=== PATIENT | female | born 1960 | race Caucasian/White ===

== ENCOUNTER 2022-01-27 10:41 | Emergency (ER) | payer OTHER ==
[~2022-01-27] VITALS: Ht 177.8 cm; Wt 90.7 kg
[2022-01-27] MEDS ORDERED: diphenhydrAMINE 50 MG/ML INJ (BENADRYL) IM ONE (11:45)
[2022-01-27] MEDS ORDERED: CLINDAMYCIN 600 MG/50 ML IVPB 50 ML IV ONE (11:45)
--- NOTE | 2022-01-27 11:45 | ED Upper Extremity ---
General Chief Complaint: Upper Extremity Stated Complaint: L ARM REDNESS/SWELLING Nursing Triage Note: PT AMBULATE TO ROOM 04 WITH C/O LEFT ARM SWELLING STARTING YESTERDAY. PT STATES SHE THINKS SHE MAY HAVE CELLULITIS. PT REPORTS TAKING TYLENOL FOR PAIN LAST NIGHT. Source: patient, family Exam Limitations: no limitations (VERNON RICE) History of Present Illness Date Seen by Provider: Jan 27, 2022 Time Seen by Provider: 11:40 Initial Comments This is a 61-year-old female with history of breast cancer and previous lumpectomy with subsequent left upper extremity lymphedema that presents to the emergency room for evaluation of redness to her arm. She states that she may have gotten bitten by something because she started having a small area of redness that was itchy. However, since yesterday the redness is expanded on her arm and is now slightly painful. She did take some Tylenol without relief. Method of Injury: unknown (VERNON RICE) Allergies and Home Medications Allergies Coded Allergies: No Known Drug Allergies (Unverified , 01/27/22) Patient Home Medication List Home Medication List Reviewed: Yes (VERNON RICE) Clindamycin HCl (Clindamycin HCl) 150 Mg Capsule, 300 MG PO QID Prescribed by: Sebastian Rice on 01/27/22 1155 Review of Systems Constitutional: no symptoms reported EENTM: no symptoms reported Respiratory: no symptoms reported Cardiovascular: no symptoms reported Gastrointestinal: no symptoms reported Genitourinary: no symptoms reported Musculoskeletal: other (left arm redness/swelling) Skin: change in color (redness to left arm) (VERNON RICE) Past Majyhsw-Qpgajh-Jpksun Hx Patient Social History Tobacco Use?: No Smoking Status: Never a Smoker Smokeless Tobacco Frequency: Never a User Use of E-Cig and/or Vaping dev: No Use of E-Cig and/or Vaping Tariq: Never a User Substance use?: No Alcohol Use?: Yes Alcohol Frequency: Once in a while Pt feels they are or have been: No (VERNON RICE) Immunizations Up To Date COVID19 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 oz. kg; 28.00 BMI Method: General Appearance: WD/WN, no apparent distress HEENT: PERRL/EOMI Neck: non-tender, full range of motion Cardiovascular: regular rate, rhythm Respiratory: chest non-tender Gastrointestinal: normal bowel sounds Neurologic/Psychiatric: border police II-XII nml as tested, oriented x 3 Skin: warm/dry, rash (bright blanching erythema to left upper arm and forearm ) (VERNON RICE) Progress/Results/Core Measures Results/Orders Medications Given in ED Current Medications Medications Dose Ordered Sig/Marcella Route Start Time Stop Time Status Last Admin Dose Admin Clindamycin Phosphate/Dextrose 50 ml @ 100 mls/hr ONCE ONCE IV 01/27/22 11:45 01/27/22 12:06 DC 01/27/22 11:43 100 MLS/HR Diphenhydramine HCl 25 mg ONCE ONCE IM 01/27/22 11:45 01/27/22 11:46 DC 01/27/22 11:43 25 MG (JUANY MCCLENDON MD) Vital Signs/I&O 01/27/22 01/27/22 10:47 12:06 Temp 36.8 36.5 Pulse 78 81 Resp 16 16 B/P (MAP) 103/61 (75) 137/83 Pulse Ox 98 O2 Delivery Room Air Room Air (JUANY MCCLENDON MD) Blood Pressure Mean: 75 Departure Communication (Admissions) Patient has bright cellulitis to the left upper arm. No significant concern for DVT. Patient was given a dose of clindamycin and benadryl here and they will follow up closely with her PCP. (VERNON RICE) Impression Primary Impression: Cellulitis of arm, left Disposition: 01 HOME, SELF-CARE Condition: Stable Departure-Patient Inst. Decision time for Depature: 11:52 (VERNON RICE) Referrals: LORENZO GOMEZ MD (PCP/Family) Primary Care Physician Patient Instructions: Cellulitis (Skin Infection), Adult (DC) Add. Discharge Instructions: Please follow-up closely with your primary care doctor to ensure improvement of your symptoms as we discussed. Return to the emergency room if you have any severe changes or worsening of your symptoms including fever, worsening pain, worsening swelling, shortness of breath. All discharge instructions reviewed with patient and/or family. Voiced understanding. Scripts Clindamycin HCl (Clindamycin HCl) 150 Mg Capsule 300 MG PO QID for 10 Days, #80 CAP Prov: VERNON RICE 01/27/22 ATTENDING PHYSICIAN NOTE: I was physically present as attending physician in the emergency department during the care of this patient, but I was not directly involved in the decision making or delivery of care for this patient. (JUANY MCCLENDON MD) VERNON RICE Jan 27, 2022 11:45 JUANY MCCLENDON MD Jan 27, 2022 20:13
[2022-01-27] MEDS ORDERED: CLIN150C20 PO (11:55)
[2022-01-27 12:06] VITALS: BP 137/83
== END 2022-01-27 12:06 | disposition home or self-care (01) ==
LOC: ER 10:44
DX: L03.114 Cellulitis of left upper limb (principal)
CPT/HCPCS: 99284

== ENCOUNTER → 2022-03-26 | Outpatient (CLI) | payer OTHER ==
[~2022-03-26] MED LIST: CLIN150C20 PO
--- NOTE | 2022-03-26 17:39 | Diagnostic Imaging Report ---
EXAMINATION: Lumbosacral spine 2 or 3 views HISTORY: Right hip and low back pain. COMPARISON: None available. FINDINGS: There is loss of height along the superior endplate at L1 which is age indeterminate. Given back pain and acute fractures not excluded, an MRI could evaluate for edema as clinically warranted. Remaining vertebral body heights maintained. There are no subluxations. Intervertebral disc spaces appear preserved. Soft tissues demonstrate atherosclerotic disease with postoperative changes incompletely imaged in the left hip. IMPRESSION: 1. Age indeterminate compression fracture at L1. See above discussion. Dictated by: Dictated on workstation # [id number]
--- NOTE | 2022-03-26 19:49 | Diagnostic Imaging Report ---
INDICATION: Right hip pain and low back pain. TIME OF EXAM: 1:46 p.m. FINDINGS: An AP view of the pelvis and two views of the right hip were obtained. Femoroacetabular alignment is normal bilaterally. There are postop changes of left total hip arthroplasty. Prosthetic elements are in good position. Right hip does show some superior joint space narrowing compatible with degenerative change. Femoroacetabular alignment is maintained, and there is no evidence of fracture or dislocation. The rami are intact. IMPRESSION: Postop changes of the left hip. There are degenerative changes to the right hip. No acute bony abnormality is detected. Dictated by: Dictated on workstation # [id number]
== END ==
LOC: RAD 13:19
PROVIDERS: ATTEND Family Medicine
DX: M16.11 Unilateral primary osteoarthritis, right hip (principal)
CPT/HCPCS: 72100

== ENCOUNTER → 2022-05-13 | Outpatient (CLI) | payer OTHER | LOC: CARD 10:00 | PROVIDERS: ATTEND Internal Medicine Cardiovascular Disease | DX: I08.0 Rheumatic disorders of both mitral and aortic valves (principal); I50.22 Chronic systolic (congestive) heart failure | CPT/HCPCS: 93306 ==

== ENCOUNTER 2022-11-30 18:26 | Emergency (ER) | payer BC, OTHER ==
[~2022-11-30] VITALS: Ht 177 cm; Wt 72.0 kg
[2022-11-30] MEDS ORDERED: ONDANSETRON 4 MG (ZOFRAN) ORAL DISSOLVE TAB PO STA (19:12)
[2022-11-30] MEDS ORDERED: HYDROmorphone 2 MG/ML VIAL (DILAUDID) IV ONE (19:15)
[2022-11-30] MEDS ORDERED: HYDROmorphone 2 MG/ML VIAL (DILAUDID) IM ONE (19:45)
[2022-11-30] MEDS ORDERED: fentaNYL PATCH 50 MCG (DURAGESIC) ONE (20:25)
[2022-11-30] MEDS ORDERED: FENT1PAT9 TD (20:25)
--- NOTE | 2022-11-30 20:26 | ED Back Pain ---
General Chief Complaint: Back Problems Stated Complaint: LOW BACK PAIN Nursing Triage Note: PT TO ED W/ C/O CHRONIC BACK PAIN ONSET AFTER HIP ET FEMUR FX 6 MOS AGO. PT REPORTS WAS RECENTLY SEEN AT ET DX W/ L1 ET L2 COMPRESSION FX W/ POSS METS/MYELOMA. PT REPORTS THE "PAIN IS TOO MUCH TO HANDLE ANYMORE." NO OTHER C/O VOICED. Source of Information: Patient, Family () Exam Limitations: No Limitations History of Present Illness Date Seen by Provider: Nov 30, 2022 Time Seen by Provider: 20:14 Initial Comments 62-year-old female presents for continued back pain. Symptoms present for 6 months and worsening. She has a CT scan/MRI report from [facility] showing that she has severe lytic disease throughout her spine, ribs which they relates possible once myeloma or metastasis. She does have a severe L1 compression fracture with retropulsion. She complains of continued back pain. She does use morphine at home which makes her very ill per her report. She also has fentanyl patches which "make me jittery." She has been taking 2 tablets at a time of 10/325 Percocet with minimal relief. She denies any loss of bowel or bladder control. No lower extremity weakness. She does have some sharp shooting pains in her left buttocks. She has an appoint with oncology on December 10. All other systems reviewed and negative except documented per HPI. Voice recognition software was used to help create this chart Allergies and Home Medications Allergies Coded Allergies: No Known Drug Allergies (Unverified , 01/27/22) Patient Home Medication List Home Medication List Reviewed: Yes Clindamycin HCl (Clindamycin HCl) 150 Mg Capsule, 300 MG PO QID Prescribed by: Sebastian Fermin on 01/27/22 1155 Fentanyl (Fentanyl Patch 50 MCG) 50 Mcg/Hour Patch.td72, 50 MCG TD Q72H Prescribed by: SERGIO PATRICIA MD on 11/30/222024 Review of Systems Constitutional: see HPI Past Uexzdgi-Aqicer-Gilmzm Hx Patient Social History Tobacco Use?: No Use of E-Cig and/or Vaping dev: No Substance use?: No Alcohol Use?: No Physical Exam Vital Signs Vital Signs - First Documented 11/30/22 18:43 Temp 36.8 Pulse 95 Resp 20 B/P (MAP) 150/90 (110) Pulse Ox 97 O2 Delivery Room Air Capillary Refill : Less Than 3 Seconds Height, Weight, BMI Height: '" Weight: lbs. oz. kg; 22.00 BMI Method: General Appearance: Moderate Distress HEENT: Normal ENT Inspection, Pharynx Normal Neck: Normal Inspection, Supple Cardiovascular: Regular Rate, Rhythm, No Murmur Respiratory: Chest Non Tender, Lungs Clear, Normal Breath Sounds Gastrointestinal: Normal Bowel Sounds, Non Tender, Soft Back: Vertebral Tenderness (Tenderness palpation diffusely about the lumbar spine.) Extremity: Normal Capillary Refill, Non Tender, No Calf Tenderness Neurologic/Psychiatric: Alert, Oriented x3, No Motor/Sensory Deficits, Normal Mood/Affect, mini bar attendant II-XII Norm as Tested Skin: Normal Color, Warm/Dry Progress/Results/Core Measures Results/Orders My Orders Orders - BELEMSERGIO DO Ondansetron Oral Dissolve Tab (Zofran (11/30/22 19:12) Hydromorphone Injection (Dilaudid Inject (11/30/22 19:15) Hydromorphone Injection (Dilaudid Inject (11/30/22 19:45) Fentanyl Patch (Duragesic Patch) (11/30/22 20:30) Fentanyl Patch (Duragesic Patch) (11/30/22 20:25) Medications Given in ED Current Medications Medications Dose Ordered Sig/Marcella Route Start Time Stop Time Status Last Admin Dose Admin Hydromorphone HCl 0.5 mg ONCE ONCE IM 11/30/22 19:45 11/30/22 19:46 DC 11/30/22 19:46 0.5 MG Vital Signs/I&O 11/30/22 11/30/22 18:43 20:42 Temp 36.8 Pulse 95 90 Resp 20 20 B/P (MAP) 150/90 (110) 142/88 Pulse Ox 97 97 O2 Delivery Room Air Room Air Blood Pressure Mean: 110 Departure Communication (Admissions) Patient is hemodynamically stable. She gets some significant relief with IM Dilaudid. We will discharge her with fentanyl patches and recommend she take 10/325 of Percocet at a time every 4 hours as needed. Any further pain medication refills will need to be sought through her primary care doctor. She does have an appointment with her neurosurgeon and oncologist on 12/10. Impression Primary Impression: Chronic back pain Qualified Codes: M54.42 - Lumbago with sciatica, left side; M54.41 - Lumbago with sciatica, right side; G89.29 - Other chronic pain Disposition: 01 HOME, SELF-CARE Condition: Stable Departure-Patient Inst. Referrals: LORENZO GOMEZ MD (PCP/Family) Primary Care Physician Patient Instructions: MANAGING YOUR CHRONIC PAIN Add. Discharge Instructions: Take Percocet, 10/325 every 4 hours as needed. Use the fentanyl patches as directed every 72 hours. If you need any refills of these medicines you will have to get them from her primary doctor. Use stool softeners as needed. Follow-up with your oncologist, back surgeons as currently scheduled on the . Return to the emergency department for any severe concerns. All discharge instructions reviewed with patient and/or family. Voiced underst anding. Scripts Fentanyl (Fentanyl Patch 50 MCG) 50 Mcg/Hour Patch.td72 50 MCG TD Q72H, #3 PATCH Prov: SERGIO PATRIICA DO 11/30/22 SERGIO PATRICIA DO Nov 30, 2022 20:26
[2022-11-30] MEDS ORDERED: fentaNYL PATCH 50 MCG (DURAGESIC) TD SCH (20:30)
[2022-11-30 20:42] VITALS: BP 142/88
== END 2022-11-30 20:42 | disposition home or self-care (01) ==
LOC: EDUNIT# 18:26 → ER 18:29
DX: M54.50 Low back pain, unspecified (principal); G89.29 Other chronic pain; Z79.891 Long term (current) use of opiate analgesic
CPT/HCPCS: 99284

== ENCOUNTER → 2022-12-26 | Outpatient (CLI) | payer BC ==
[~2022-12-26] MED LIST changes: +CATHETER FLUSH 10 ML SYR IVP PRN; +FENT1PAT9 TD
--- NOTE | 2022-12-27 16:10 | Diagnostic Imaging Report ---
INDICATION: Initial staging. Patient has bone metastases from breast cancer primary. Serum blood glucose level at the time of injection is 81 mg/dL. TECHNIQUE: The patient was administered 10.7 mCi F-18 FDG intravenously in the right hand and PET imaging was performed from the top of the skull to mid thighs. Noncontrast CT was also performed for attenuation correction and anatomic correlation. COMPARISON: No prior PET/CT studies are available for comparison. There is symmetric activity throughout the brain. Soft tissues of the neck are unremarkable. No definite mediastinal or hilar hypermetabolism is identified. No pulmonary parenchymal hypermetabolism is identified. Physiologic activity throughout the gastrointestinal and genitourinary tracts is noted. There is significant hypermetabolic activity throughout the axial and appendicular skeleton. Abnormal uptake is seen throughout the cervical, thoracic and lumbar spine as well as bilateral ribs, the bony pelvis as well as the right humerus. There is a small focus in the mid shaft of the left femur. IMPRESSION: Widespread osseous hypermetabolic activity consistent with osseous metastatic disease. No other significant abnormality is detected. Dictated by: Dictated on workstation # [id number]
== END ==
LOC: RAD 11:24
PROVIDERS: ATTEND Radiology Radiation Oncology
DX: C79.51 Secondary malignant neoplasm of bone (principal); C50.919 Malignant neoplasm of unspecified site of unspecified female breast
CPT/HCPCS: 78815; 82947; A9552

== ENCOUNTER → 2022-12-27 | Outpatient (RCR) | payer BC ==
[~2022-12-27] MED LIST changes: +CARV12.53 PO; -CATHETER FLUSH 10 ML SYR IVP PRN; +CETI10TA17 PO; +CHOL-34 PO; +DAPA10TA PO; +DOCU100T7 PO; +DULO60CA59 PO; +EZET10TA49 PO; +FENT1PAT10 TD; +FURO40TA4 PO; +NALO4SPR3 NSEACH; +NYST1000 PO; +OMEP20TA56 PO; +ONDA8TAB13 PO; +OXYC10TA7 PO; +ROSU5TAB PO; +SACU1TAB7 PO; +TOFA10TA PO; +ZINC220T3 PO
== END ==
LOC: ONC 12-23 12:53
PROVIDERS: ATTEND Radiology Radiation Oncology
DX: Z51.0 Encounter for antineoplastic radiation therapy (principal); C79.51 Secondary malignant neoplasm of bone
CPT/HCPCS: 77290; 77295; 77300; 77334; 77417; 99205

== ENCOUNTER 2023-01-03 07:58 | Day surgery (SDC) | payer BC ==
[~2023-01-03] VITALS: Ht 177.8 cm; Wt 68.0 kg
[~2023-01-03 07:58] MED LIST changes: -CARV12.53 PO; -CETI10TA17 PO; -CHOL-34 PO; -DAPA10TA PO; -DOCU100T7 PO; -DULO60CA59 PO; -EZET10TA49 PO; -FENT1PAT10 TD; -FENT1PAT11 TD; -FURO40TA4 PO; -LEVO750T PO; -LIDOCAINE 1% INJ 10 ML VIAL INJ ONE; -LORA-404 PO; -MIDAZOLAM 2 MG/2 ML (VERSED) VIAL IVP ONE; -MIRT-47 PO; -MORP-68 PO; -NALO4SPR3 NSEACH; -NS IV 1000 ML 1,000 ML IV STA; -NYST1000 PO; -OMEP20TA56 PO; -ONDA8TAB13 PO; -OXYC10TA7 PO; -PANT40TA52 PO; -ROSU5TAB PO; -SACU1TAB7 PO; -SNN187T PO; -SUCR1TAB PO; -TOFA10TA PO; -ZINC220T3 PO; -fentaNYL INJ 100 MCG/2 ML AMP IVP ONE
[2023-01-03] MEDS ORDERED: NS IV 1000 ML 1,000 ML IV STA (08:08)
[2023-01-03] MEDS ORDERED: fentaNYL INJ 100 MCG/2 ML AMP IVP ONE (08:15)
[2023-01-03] MEDS ORDERED: MIDAZOLAM 2 MG/2 ML (VERSED) VIAL IVP ONE (08:15)
[2023-01-03] MEDS ORDERED: LIDOCAINE 1% INJ 10 ML VIAL INJ ONE (08:15)
[2023-01-03] MEDS ORDERED: LACTATED RINGERS 1,000 ML IV PRN (08:15)
[2023-01-03] MEDS ORDERED: FAMOTIDINE 20MG/2ML IV (PEPCID) IVP ONE (09:00)
[2023-01-03] MEDS ORDERED: ONDANSETRON 4 MG/2 ML (SDV) Z0FRAN IVP ONE (09:00)
[2023-01-03] MEDS ORDERED: NS (IVPB) 50 ML ONE (09:13)
[2023-01-03] MEDS ORDERED: ceFAZolin INJECTION 1,000 MG ONE (09:13)
--- NOTE | 2023-01-03 09:21 | Progress Note-Pre Operative ---
Pre-Operative Progress Note Date H&P Reviewed: Jan 03, 2023 Time H&P Reviewed: 09:19 History & Physical: H&P Reviewed, Patient Examed, No changes noted Pre-Operative Diagnosis: poor venous access RIMMA TALBOT DO Jan 03, 2023 09:21
[2023-01-03 09:35] VITALS: BP 133/72
[2023-01-03] MEDS ORDERED: 0.9% SODIUM CHLORIDE PF INJ 20 ML VIAL ONE (11:26)
[2023-01-03] MEDS ORDERED: LIDOCAINE/EPI 1%-1:100,000 (XYLOCAINE) 20ML ONE (11:26)
[2023-01-03] MEDS ORDERED: HEParin (CENTRAL IV FLUSH) 500 UNIT/5 ML SYR ONE (11:26)
[2023-01-03] MEDS ORDERED: ceFAZolin 1 GM/NS 50 ML (SDC/OR ONLY) IV ONE ×2 (12:30)
--- NOTE | 2023-01-03 12:39 | Pre-Op Note & Conscious Sedat ---
Pre-Operative Progress Note Date of Available H&P: Jan 03, 2023 Date H&P Reviewed: Jan 03, 2023 Time H&P Reviewed: 09:00 Pre-Op Diagnosis: bone lesions Moderate Sedation PreProcedure Time 09:00 ASA Score 2 Airway Lungs Heart ASA score ASA 1: a normal healthy patient ASA 2: a patient with a mild systemic disease (mid diabetes, controlled hypertension, obesity ASA 3: a patient with a severe systemic disease that limits activity (angina, COPD, prior Myocardial infarction) ASA 4: a patient with an incapacitating disease that is a constant threat to life (CHF, renal failure) ASA 5: a moribund patient not expected to survive 24 hrs. (ruptured aneurysm) ASA 6: a declared brain- patient whose organs are being harvested. For emergent operations, add the letter E after the classification Mallampati Classification Grade 2 Sedation Plan Analgesia, Amnesia, Plan communicated to team members, Discussed options with patient/fam, Discussed risks with patient/fam The patient is an appropriate candidate to undergo the planned procedure, sedation, and anesthesia. The patient immediately re-assessed prior to indication. GENESIS CINTRON MD Jan 03, 2023 12:39
[2023-01-03] MEDS ORDERED: PROPOFOL INJECTION 50 ML IV ONE (13:52)
--- NOTE | 2023-01-03 13:58 | Discharge Inst-Simple/Standard ---
Discharge Inst-Standard Patient Instructions/Follow Up Plan of Care/Instructions/FU: 2 WEEKS DAHIANA Activity as Tolerated: No Discharge Diet: Regular Diet Other Inst to Patient Follow up Appt: Make appointment for 2 week. Instructions: No lifting greater than 10 pounds. No strenuous activity. May shower in 24 hours, no tub bath or soaking. Use incentive spirometer at home as directed. No Smoking Skin/Wound Care: You have special glue over your incision that will fall off on it's own. ICE PACK ON 15 MIN AND OFF 30 MIN AND REPEAT FOR FIRST 48 HOURS. THIS REDUCES SWELLING AND DISCOMFORT. Symptoms to Report: Appetite Changes, Extremity Discoloration, Numbness/Tingling, Swelling Increased, Bleeding Excessive, Eyesight Changes, Pain Increased, Urine Color Change, Constipation(Persistent), Fever over 101 degree F, Pain/Pressure in chest, Urinating Difficulty, Cough Up/Vomit Blood, Heart Beat Irreg/Pounding, Pain/Pressure in jaw, Vaginal Bleeding Increase, Cramps in feet or legs, Lightheadedness, Pain/Pressure in shoulder, Diarrhea(Persistent), Memory Changes Suddenly, Questions/Concerns, Weight gain consecutive days, Dizziness/Fainting, Nausea/Vomiting, Shortness of Breath, Weight gain over 2 pounds If questions or concerns contact your physician Or seek help at emergency department. RIMMA TALBOT DO Jan 03, 2023 13:58
--- NOTE | 2023-01-03 13:59 | Progress Note-Post Operative ---
Post-Operative Progess Note Surgeon (s)/Client Technologies Analyst (s) Surgeon RIMMA TALBOT DO Client Technologies Analyst: NA Pre-Operative Diagnosis POOR VENOUS ACCESS Post-Operative Diagnosis SAME Procedure & Operative Findings Date of Procedure 01/03/23 Procedure Performed/Findings PROCEDURE: Left internal jugular port placement using ultrasound guidance. COMPLICATIONS: None. INDICATIONS: The patient is a 62 year old female with poor venous access. Patient understands the risks and benefits of port placement and wished to proceed with the procedure. Consent was signed on the chart. PROCEDURE: The patient was taken to the operating suite, was prepped and draped in the sterile fashion. A surgical pause was performed. Ultrasound was used to locate the internal jugular vein. Once located anesthetic was infiltrated above it. Using micro-access kit, the right internal vein was accessed. Dark nonpulsatile blood was withdrawn. The wire was inserted. Fluoroscopy assured proper placement. The needle was removed. The micro-access dilator was advanced over the wire and the wire was removed. The regular wire was inserted and fluoroscopy assured proper placement. The wire was then secured. Local anesthetic was used to anesthetize from the neck for tunneling down to the right chest and for pocket creation. A 15 blade scalpel was used to make an incision over the left chest. Cautery was used to dissect down to the pectoral fascia. A pocket was created with blunt dissection. The dilator sheath was then advanced over the wire under fluoroscopy and the dilator and wire were removed. The Groshong catheter was inserted through the sheath and the sheath was then removed. The Groshong wire was removed. The catheter was then tunneled to the right chest pocket. Fluoroscopy was used to cut to length and this was then attached to the port which was then placed within the pocket. The port was then accessed without difficulty. It was then flushed with saline and then heparin. The subcutaneous tissues were then reapproximated using 3-0 Vicryl. The areas were then washed and dried. Skin Affix was placed over incision. The insertion point of the neck Skin Affix was placed over the incision. The patient tolerated the procedure well without complication and was taken to recovery room in stable condition. Chest x-ray is pending. Anesthesia Type mac c local Estimated Blood Loss Estimated blood loss (mL): minimal Specimens/Packing Specimens Removed none RIMMA TALBOT DO Jan 03, 2023 13:59
[2023-01-03 14:02] VITALS: BP 128/91
[2023-01-03 14:10] VITALS: BP 126/99
[2023-01-03] MEDS ORDERED: ONDANSETRON 4 MG/2 ML (SDV) Z0FRAN ONE (14:19)
[2023-01-03 14:20] VITALS: BP 125/85
[2023-01-03 14:30] VITALS: BP_SYST 116; BP_SYST 122; BP_SYST 128; BP_DIAS 86; BP_DIAS 87; BP_DIAS 91
--- NOTE | 2023-01-03 14:30 | Diagnostic Imaging Report ---
INDICATION: Post port placement, history of metastatic breast cancer TECHNIQUE: Single view chest 2:22 PM CORRELATION STUDY: None FINDINGS: Left IJ Pzghky-q-Hpqq catheter is present. Tip projects over the SVC. Right-sided unipolar pacemaker tip cardiac apex. Heart size enlarged. Likely tortuous course thoracic aorta. The lungs are clear with no consolidating infiltrate. There is no significant effusion or pneumothorax. Surgical clips over left chest wall/axilla. IMPRESSION: 1. Left IJ Lkxbjk-m-Iwer catheter present. No post procedure complication. Dictated by: Dictated on workstation # [id number]
--- NOTE | 2023-01-03 14:45 | Anesthesia-General Post-Op ---
MAC Patient Condition Mental Status/LOC: Same as Preop Cardiovascular: Satisfactory Nausea/Vomiting: Absent Respiratory: Satisfactory Pain: Controlled Complications: Absent Post Op Complications Complications None Follow Up Care/Instructions Patient Instructions None needed. Anesthesiology Discharge Order Discharge Order Patient is doing well, no complaints, stable vital signs, no apparent adverse anesthesia problems. No complications reported per nursing. GIULIANO ORELLANA CRNA Jan 03, 2023 14:45
[2023-01-03 15:10] VITALS: BP 116/87
--- NOTE | 2023-01-03 17:57 | Diagnostic Imaging Report ---
INDICATION: Port-A-Cath placement. EXAMINATION: Two intraoperative views were obtained with a portable intensifier in surgery. 135.8 seconds of fluoroscopy time was used. 1.54 Rads of exposure. FINDINGS: Intraoperative views demonstrate Port-A-Cath over left chest with catheter in the left internal jugular vein and catheter tip overlying the low SVC. The study is otherwise limited. IMPRESSION: Intraoperative fluoroscopy views demonstrate Port-A-Cath placement, as above. Dictated by: Dictated on workstation # [id number]
[2023-01-04] MEDS ORDERED: CARV12.53 PO ×2 (13:00)
[2023-01-04] MEDS ORDERED: EZET10TA49 PO (13:00)
[2023-01-04] MEDS ORDERED: TOFA10TA PO (13:00)
[2023-01-04] MEDS ORDERED: FURO40TA4 PO (13:00)
[2023-01-04] MEDS ORDERED: ROSU5TAB PO ×2 (13:00)
[2023-01-04] MEDS ORDERED: DAPA10TA PO ×2 (13:00)
[2023-01-04] MEDS ORDERED: CETI10TA17 PO ×2 (13:00)
[2023-01-04] MEDS ORDERED: OMEP20TA56 PO ×2 (13:00)
[2023-01-04] MEDS ORDERED: DULO60CA59 PO ×2 (13:00)
[2023-01-04] MEDS ORDERED: ZINC220T3 PO ×2 (13:00)
[2023-01-04] MEDS ORDERED: SACU1TAB7 PO ×2 (13:00)
[2023-01-07] MEDS ORDERED: MIRT-47 PO ×2 (12:06)
[2023-01-07] MEDS ORDERED: SUCR1TAB PO ×2 (12:06)
[2023-01-07] MEDS ORDERED: OXYC10TA7 PO ×2 (12:06)
[2023-01-07] MEDS ORDERED: PANT40TA52 PO ×2 (12:06)
[2023-01-07] MEDS ORDERED: LEVO750T PO ×2 (12:06)
[2023-01-07] MEDS ORDERED: FENT1PAT11 TD ×2 (12:06)
[2023-01-07] MEDS ORDERED: MORP-68 PO ×2 (12:06)
[2023-01-07] MEDS ORDERED: SNN187T PO ×2 (12:06)
[2023-01-07] MEDS ORDERED: LORA-404 PO ×2 (12:06)
== END 2023-01-03 15:12 | disposition home or self-care (01) ==
LOC: SDC 07:58
PROVIDERS: ATTEND Surgery
DX: I87.2 Venous insufficiency (chronic) (peripheral) (principal); C79.51 Secondary malignant neoplasm of bone; Z87.891 Personal history of nicotine dependence; Z85.3 Personal history of malignant neoplasm of breast
CPT/HCPCS: 36561; 71045; 76000; 87081; 99156; C1788

== ENCOUNTER 2023-01-03 15:35 | Inpatient (IN) | payer BC ==
[~2023-01-03] VITALS: Ht 177.8 cm; Wt 68.8 kg
[2023-01-03] MEDS ORDERED: ONDANSETRON 4 MG (ZOFRAN) ORAL DISSOLVE TAB PO PRN (16:00)
[2023-01-03] MEDS ORDERED: MELATONIN 3 MG TABLET PO PRN (16:00)
[2023-01-03] MEDS ORDERED: MILK OF MAGNESIA 400 MG/5 ML 30 ML UDC PO PRN (16:00)
[2023-01-03] MEDS ORDERED: ANTACID SUSP 30 ML UDC (MYLANTA) PO PRN (16:00)
[2023-01-03] MEDS ORDERED: diphenhydrAMINE 25 MG TAB (BENADRYL) PO PRN (16:00)
[2023-01-03] MEDS ORDERED: ALPRAZolam 1 MG (XANAX) TAB PO PRN (16:00)
[2023-01-03] MEDS ORDERED: LACTULOSE SYRUP 10GM/15ML (ENULOSE) 30ML UDC PO PRN (16:00)
[2023-01-03] MEDS ORDERED: diphenhydrAMINE 50 MG/ML INJ (BENADRYL) IVP PRN (16:00)
[2023-01-03] MEDS ORDERED: ACETAMINOPHEN 325 MG TABLET PO PRN (16:00)
[2023-01-03] MEDS ORDERED: polyethylene glycoL POWDER 17 GM (MIRALAX) PACK PO PRN (16:00)
[2023-01-03] MEDS ORDERED: BISACODYL 10 MG SUPP (DULCOLAX) PR PRN (16:00)
[2023-01-03] MEDS ORDERED: ALPRAZolam 0.5 MG (XANAX) TAB PO PRN (16:30)
--- NOTE | 2023-01-03 16:57 | Occ Therapy Progress Note ---
Therapy Progress Note OT ORDER RECEIVED, PATEN UNAVAILABLE, OT TO MONITOR AND PRECEDED PENDING AVAILABILITY OF PATIENT. EVALUATE NEXT OT OPPORTUNITY JENNI UP OT Jan 03, 2023 16:57
[2023-01-03 17:04] LABS: BASOPHILS % (AUTO) 0 % (0-10); EOSINOPHILS % (AUTO) 0 % (0-10); HEMATOCRIT 36 % (35-52); HEMOGLOBIN 12.3 g/dL (11.5-16.0); LYMPHOCYTES # (AUTO) 0.4 10^3/uL (1.0-4.0); LYMPHOCYTES % (AUTO) 4 % (12-44); MEAN CORPUSCULAR HEMOGLOBIN 30 pg (25-34); MEAN CORPUSCULAR HGB CONC 34 g/dL (32-36); MEAN CORPUSCULAR VOLUME 88 fL (80-99); MEAN PLATELET VOLUME 9.5 fL (9.0-12.2); MONOCYTES # (AUTO) 1.4 10^3/uL (0.0-1.0); MONOCYTES % (AUTO) 16 % (0-12); NEUTROPHILS # (AUTO) 6.7 10^3/uL (1.8-7.8); NEUTROPHILS % (AUTO) 78 % (42-75); PLATELET COUNT 278 10^3/uL (130-400); WHITE BLOOD COUNT 8.6 10^3/uL (4.3-11.0)
[2023-01-03 17:12] LABS: ALBUMIN 3.8 GM/DL (3.2-4.5); POTASSIUM 3.7 MMOL/L (3.6-5.0)
[2023-01-03 17:14] LABS: CALCIUM 9.1 MG/DL (8.5-10.1)
[2023-01-03] MEDS: NS IV 1000 ML 1,000 ML IV SCH ×2 (17:14→19:00)
[2023-01-03] MEDS: ENOXAPARIN 40 MG/0.4 ML (LOVENOX) SYR SC SCH (17:14)
[2023-01-03] MEDS: HYDROmorphone 2 MG/ML VIAL (DILAUDID) IV PRN (17:14)
[2023-01-03 17:15] LABS: TOTAL PROTEIN 6.9 GM/DL (6.4-8.2)
[2023-01-03] MEDS: ONDANSETRON 4 MG/2 ML (SDV) Z0FRAN IV PRN (17:15)
[2023-01-03 17:17] LABS: BILIRUBIN,TOTAL 0.5 MG/DL (0.1-1.0)
[2023-01-03 17:18] LABS: CREATININE SERUM 0.99 MG/DL (0.60-1.30)
[2023-01-03 17:22] LABS: MAGNESIUM 1.6 MG/DL (1.6-2.4)
[2023-01-03 17:26] VITALS: BP 94/69
[2023-01-03] MEDS ORDERED: NS IV 1000 ML 1,000 ML IV SCH (18:00)
--- NOTE | 2023-01-03 18:12 | History & Physical ---
History of Present Illness HPI/Chief Complaint CC: Dehydration and severe weakness HPI: This is a 62yoWF clinic patient of Dr Joshi, Dr Santos, Dr Willett, Dr Cedeno and Dr Galarza who presents as a direct admit from [facility] following [place] port placement and bone biopsy. Patient has a h/o breast cancer. She has a h/o right hip fracture 6 months ago and then back pain started and imaging revealed widespread bony mets. Fentanyl patch 75mcg is in place and she takes Percocet regularly. Bowels are moving with Colace. office note 09/2022: Keyonna Curiel is a 62 y.o. female referred by her PCP for back pain. Back pain is her biggest complaint at this time. Pain started prior to her initial hip replacement in 2019, but then she had a fall in May 2022 resulting in a revision RUPA of the right hip. Both of these surgeries were by anterior approac h. After the fall she began to notice more back pain. She was worked up in [place] where a NM scan was ordered, showing uptake at L1-2; these actual images are not available to view at this appointment. Patient has a defibrillator and is unable to have an MRI. History of Bone Density Scan less than two years ago showing osteopenia. She is currently not on any medications for this, but was has been taking vitamin D. Pain worse with walking and bending over. She sleeps in a recliner due to inability to lie flat. She has pain in her right anterior and lateral thigh, but she thinks this is from her previous hip revision. She has not done any physical therapy, even after her revision total hip. She has transitioned off the walker to a cane but still needs the cane due to leg weakness. She is currently takes Oxycodone 10mg Q6 hours and reports taking 2-3 at a time when her pain is bad. She also has fentanyl patches she is using, but reports they keep falling off. She has been on these medications for months per patient report and are prescribed by her PCP Source: patient, family, RN/MD, old records Exam Limitations: no limitations Date Seen 01/03/23 Time Seen by a Provider: 18:00 Attending Physician Cassy Joshi MD PCP Admitting Physician: Krystle Hand DO Attending Physician: Hand,Krystle DO Referring Physician Date of Admission Jan 03, 2023 at 15:35 Home Medications & Allergies Home Medications Reviewed patient Home Medication Reconciliation performed by pharmacy medication reconciliations forest ranger technician and/or nursing. Patients Allergies have been reviewed. Allergies Allergies Coded Allergies No Known Drug Allergies (Unverified01/27/22) Past Idxpsrs-Lkciks-Fmtyft Hx Past Med/Social Hx: Reviewed Nursing Past Med/Soc Hx, Reviewed and Corrections made Patient Social History Marrital Status: Employed/Student: unemployed Alcohol Use: Denies Use Smoking Status: Former Smoker 2nd Hand Smoke Exposure: No Recent Hopitalizations: No Seasonal Allergies Seasonal Allergies: No Past Medical History Surgeries: Orthopedic Currently Using CPAP: No Currently Using BIPAP: No Cancer: Breast Did You Recieve Any Treatments: No History of Blood Disorders: No Adverse Reaction to Blood Leonard: No Review of Systems Constitutional: see HPI, malaise, weakness EENTM: no symptoms reported Respiratory: no symptoms reported Cardiovascular: no symptoms reported Gastrointestinal: no symptoms reported Genitourinary: no symptoms reported Musculoskeletal: back pain, joint pain Skin: no symptoms reported Psychiatric/Neurological: Anxiety, Depressed All Other Systems Reviewed Negative Unless Noted: Yes Physical Exam Physical Exam Vital Signs Vital Signs - First Documented 01/03/23 01/03/23 01/03/23 16:29 17:26 18:31 Temp 36.9 Pulse 105 Resp 18 B/P (MAP) 94/69 (77) Pulse Ox 97 O2 Delivery Room Air FiO2 21 Capillary Refill : Height, Weight, BMI Height: '" Weight: lbs. oz. kg; 21.76 BMI Method: General Appearance: No Apparent Distress, WD/WN, Chronically ill Eyes: Bilateral Eye Normal Inspection, Bilateral Eye PERRL HEENT: PERRL/EOMI, Normal ENT Inspection, Pharynx Normal Neck: Full Range of Motion, Normal Inspection, Non Tender, Supple, Carotid Bruit Respiratory: Chest Non Tender, Lungs Clear, Normal Breath Sounds, No Accessory Muscle Use, No Respiratory Distress Cardiovascular: Regular Rate, Rhythm, No Edema, No Gallop, No JVD, No Murmur, Normal Peripheral Pulses Gastrointestinal: Normal Bowel Sounds, No Organomegaly, No Pulsatile Mass, Non Tender, Soft Back: Normal Inspection, No CVA Tenderness, No Vertebral Tenderness Extremity: Normal Capillary Refill, Normal Inspection, Normal Range of Motion, Non Tender, No Calf Tenderness, No Pedal Edema Neurologic/Psychiatric: Alert, Oriented x3, No Motor/Sensory Deficits, refinery operator alkylation II- XII Norm as Tested, Abnormal Gait, Depressed Affect, Motor Weakness Skin: Normal Color, Warm/Dry Lymphatic: No Adenopathy Results Results/Procedures Labs Laboratory Tests 01/03/23 16:56 01/04/23 04:06 Patient resulted labs reviewed. 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
[2023-01-03 18:31] VITALS: BP 94/69
[2023-01-03 19:12] VITALS: BP 102/70
[2023-01-03] MEDS: LORazepam 0.5 MG (ATIVAN) TABLET PO SCH (21:25)
[2023-01-03] MEDS: DOCUSATE SODIUM 100 MG (COLACE) CAP PO SCH (21:26)
[2023-01-03] MEDS: SENNOSIDES 8.6 MG (SENOKOT) TAB PO SCH (21:26)
[2023-01-03] MEDS: MELATONIN 3 MG TABLET PO SCH (21:27)
[2023-01-03] MEDS: MIRTAZAPINE 15 MG (REMERON) TAB PO SCH (21:27)
[2023-01-03 23:48] VITALS: BP 115/78
[2023-01-04] MEDS: CALCIUM CARBONATE 500 MG (TUMS) TAB.CHEW PO PRN ×3 (01:54→05:35)
[2023-01-04] MEDS: HYDROmorphone 2 MG/ML VIAL (DILAUDID) IV PRN ×5 (01:57→19:52)
[2023-01-04 03:16] VITALS: BP 101/68
[2023-01-04] MEDS: NS IV 1000 ML 1,000 ML IV SCH ×3 (04:01→13:39)
[2023-01-04 04:33] LABS: BASOPHILS % (AUTO) 0 % (0-10); EOSINOPHILS # (AUTO) 0.2 10^3/uL (0.0-0.3); EOSINOPHILS % (AUTO) 3 % (0-10); HEMATOCRIT 32 % (35-52); HEMOGLOBIN 10.8 g/dL (11.5-16.0); LYMPHOCYTES # (AUTO) 0.5 10^3/uL (1.0-4.0); LYMPHOCYTES % (AUTO) 9 % (12-44); MEAN CORPUSCULAR HEMOGLOBIN 30 pg (25-34); MEAN CORPUSCULAR HGB CONC 33 g/dL (32-36); MEAN CORPUSCULAR VOLUME 88 fL (80-99); MEAN PLATELET VOLUME 9.6 fL (9.0-12.2); MONOCYTES # (AUTO) 1.1 10^3/uL (0.0-1.0); MONOCYTES % (AUTO) 18 % (0-12); NEUTROPHILS # (AUTO) 4.1 10^3/uL (1.8-7.8); NEUTROPHILS % (AUTO) 68 % (42-75); PLATELET COUNT 263 10^3/uL (130-400)
[2023-01-04 04:48] LABS: ALBUMIN 3.5 GM/DL (3.2-4.5); BILIRUBIN,TOTAL 0.5 MG/DL (0.1-1.0); CALCIUM 8.7 MG/DL (8.5-10.1); CREATININE SERUM 0.96 MG/DL (0.60-1.30); POTASSIUM 3.5 MMOL/L (3.6-5.0)
[2023-01-04] MEDS ORDERED: MAGNESIUM 1 GM/100 ML IVPB 100 ML IV ONE (06:30)
[2023-01-04 07:27] VITALS: BP 112/69
[2023-01-04] MEDS: DOCUSATE SODIUM 100 MG (COLACE) CAP PO SCH ×2 (08:25→21:00)
[2023-01-04] MEDS: SENNOSIDES 8.6 MG (SENOKOT) TAB PO SCH ×2 (08:25→21:00)
[2023-01-04] MEDS: POTASSIUM CL 10MEQ/50ML IVPB 50 ML IV SCH ×3 (08:40→10:59)
[2023-01-04 08:42] LABS: CLARITY,URINE CLEAR; COLOR,URINE YELLOW; GLUCOSE, URINE (UA) 1+ (NEGATIVE); KETONES,URINE TRACE (NEGATIVE); LEUKOCYTE ESTERASE ,URINE 1+ (NEGATIVE); NITRITE,URINE NEGATIVE (NEGATIVE); PH,URINE 5.5 (5-9); PROTEIN,URINE 1+ (NEGATIVE)
[2023-01-04 08:57] LABS: BILIRUBIN,URINE 2+ (NEGATIVE)
[2023-01-04 08:58] LABS: AMORPHOUS SEDIMENT,UR FEW AMOR URATES /LPF; BACTERIA,URINE FEW /HPF; HYALINE CASTS, URINE 0-2 /LPF; RBC,URINE RARE /HPF; SQUAMOUS EPITHELIAL CELL,UR RARE /HPF; WBC,URINE 25-50 /HPF
--- NOTE | 2023-01-04 11:01 | Physical Therapy Progress Note ---
Therapy Progress Note Attempted PT at 0845 but pt declined. Will attempt PT evaluation again on Friday. KARISHMA SALDANA PT Jan 04, 2023 11:01
[2023-01-04 11:34] VITALS: BP 101/64
--- NOTE | 2023-01-04 12:35 | Progress Note ---
Subjective Date Seen by a Provider: Jan 04, 2023 Time Seen by a Provider: 12:30 Subjective/Events-last exam Patient feeling a lot better but pain is just not controlled Unable to fully ambulate and refused therapy due to pain Increasing fentanyl to 100 mcg Bowels are moving with stool softeners Review of Systems General: Fatigue, Malaise Musculoskeletal: back pain Focused Exam Lactate Level 01/03/23 16:56: Lactic Acid Level 1.49 Objective Exam Last Set of Vital Signs Vital Signs Date Time Temp Pulse Resp B/P (MAP) Pulse Ox O2 Delivery O2 Flow Rate FiO2 01/04/23 12:30 93 01/04/23 11:34 37.0 20 101/64 (76) 98 Room Air 01/04/23 08:25 0.00 01/03/23 18:34 21 Capillary Refill : I&O Intake and Output 01/04/23 00:00 Intake Total 1735 ml Output Total 120 ml Balance 1615 ml Intake Oral 735 ml IV Total 1000 ml Output Urine Total 120 ml # Voids 1 Daily Weight Change Yes, 24-33 lbs General: Alert, Oriented X3, Cooperative, No Acute Distress Lungs: Clear to Auscultation, Normal Air Movement Heart: Regular Rate, Normal S1, Normal S2, No Murmurs Psych/Mental Status: Mental Status NL, Mood NL Results Lab Laboratory Tests 01/03/23 16:56: White Blood Count 8.6, Red Blood Count 4.15, Hemoglobin 12.3, Hematocrit 36, [place] Corpuscular Volume 88, Mean Corpuscular Hemoglobin 30, Mean Corpuscular Hemoglobin Concent 34, Red Cell Distribution Width 16.5H, Platelet Count 278, Mean Platelet Volume 9.5, Immature Granulocyte % (Auto) 1, Neutrophils (%) (Auto) 78H, Lymphocytes (%) (Auto) 4L, Monocytes (%) (Auto) 16H, Eosinophils (%) (Auto) 0, Basophils (%) (Auto) 0, Neutrophils # (Auto) 6.7, Lymphocytes # (Auto) 0.4L, Monocytes # (Auto) 1.4H, Eosinophils # (Auto) 0.0, Basophils # (Auto) 0.0, Immature Granulocyte # (Auto) 0.1, Neutrophils % (Manual) , Sodium Level 138, Potassium Level 3.7, Chloride Level 105, Carbon Dioxide Level 17L, Anion Gap 16H , Blood Urea Nitrogen 16, Creatinine 0.99, Estimat Glomerular Filtration Rate 65, BUN/Creatinine Ratio 16, Glucose Level 118H, Lactic Acid Level 1.49, Calcium Level 9.1, Corrected Calcium 9.3, Magnesium Level 1.6, Total Bilirubin 0.5, Aspartate Amino Transf (AST/SGOT) 27, Alanine Aminotransferase (ALT/SGPT) 24, Alkaline Phosphatase 121, Total Protein 6.9, Albumin 3.8 01/04/23 04:06: White Blood Count 6.0, Red Blood Count 3.66L, Hemoglobin 10.8L, Hematocrit 32L, Mean Corpuscular Volume 88, Mean Corpuscular Hemoglobin 30, Mean Corpuscular Hemoglobin Concent 33, Red Cell Distribution Width 16.7H, Platelet Count 263, Mean Platelet Volume 9.6, Immature Granulocyte % (Auto) 2, Neutrophils (%) (Auto) 68, Lymphocytes (%) (Auto) 9L, Monocytes (%) (Auto) 18H, Eosinophils (%) (Auto) 3, Basophils (%) (Auto) 0, Neutrophils # (Auto) 4.1, Lymphocytes # (Auto) 0.5L, Monocytes # (Auto) 1.1H, Eosinophils # (Auto) 0.2, Basophils # (Auto) 0.0, Immature Granulocyte # (Auto) 0.1, Sodium Level 139, Potassium Level 3.5L, Chloride Level 109H, Carbon Dioxide Level 20L, Anion Gap 10, Blood Urea Nitrogen 14, Creatinine 0.96, Estimat Glomerular Filtration Rate 68, BUN/Creatinine Ratio 15, Glucose Level 89, Calcium Level 8.7, Corrected Calcium 9.1, Total Bilirubin 0.5, Aspartate Amino Transf (AST/SGOT) 25, Alanine Aminotransferase (ALT/SGPT) 22, Alkaline Phosphatase 109, Total Protein 6.0L, Albumin 3.5 01/04/23 08:30: Urine Color YELLOW, Urine Clarity CLEAR, Urine pH 5.5, Urine Specific [place] >=1.030, Urine Protein 1+H, Urine Glucose (UA) 1+H, Urine Ketones TRACEH, Urine Nitrite NEGATIVE, Urine Bilirubin 2+H, Urine Urobilinogen 0.2, Urine Leukocyte Esterase 1+H, Urine RBC (Auto) NEGATIVE, Urine RBC RARE, Urine WBC 25-50H, Urine Squamous Epithelial Cells RARE, Urine Crystals PRESENTH, Urine Amorphous Se diment FEW JUDE URATESH, Urine Bacteria FEWH, Urine Casts PRESENT, Urine Hyaline Casts 0-2H, Urine Granular Casts 2-5H, Urine Mucus LARGEH, Urine Culture Indicated YES Assessment/Plan Assessment/Plan Assess & Plan/Chief Complaint Assessment: Severe weakness and dehydration Bony metastatic disease of unknown origin s/p bone biopsy undergoing aggressive radiation treatment Right hip replacement h/o then s/p fall with fracture s/p repair 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
[2023-01-04] MEDS ORDERED: CETI10TA17 PO ×2 (13:00)
[2023-01-04] MEDS ORDERED: DAPA10TA PO ×2 (13:00)
[2023-01-04] MEDS ORDERED: EZET10TA49 PO (13:00)
[2023-01-04] MEDS ORDERED: CARV12.53 PO ×2 (13:00)
[2023-01-04] MEDS ORDERED: DULO60CA59 PO ×2 (13:00)
[2023-01-04] MEDS ORDERED: FURO40TA4 PO (13:00)
[2023-01-04] MEDS ORDERED: ZINC220T3 PO ×2 (13:00)
[2023-01-04] MEDS ORDERED: TOFA10TA PO (13:00)
[2023-01-04] MEDS ORDERED: ROSU5TAB PO ×2 (13:00)
[2023-01-04] MEDS ORDERED: OMEP20TA56 PO ×2 (13:00)
[2023-01-04] MEDS ORDERED: SACU1TAB7 PO ×2 (13:00)
[2023-01-04] MEDS: cefTRIAXone IV/IM 1,000 MG in NS (IVPB) 50 ML IV SCH (13:25)
[2023-01-04] MEDS: PANTOPRAZOLE 40 MG (PROTONIX) TAB PO SCH ×2 (13:25→20:54)
[2023-01-04] MEDS: SUCRALFATE 1 GM (CARAFATE) TAB PO SCH ×3 (13:25→20:54)
[2023-01-04] MEDS: fentaNYL PATCH 100 MCG (DURAGESIC) TD SCH (13:26)
[2023-01-04 16:01] VITALS: BP 107/63
[2023-01-04] MEDS: ENOXAPARIN 40 MG/0.4 ML (LOVENOX) SYR SC SCH (16:51)
[2023-01-04 19:43] VITALS: BP 111/75
[2023-01-04] MEDS: MELATONIN 3 MG TABLET PO SCH (20:54)
[2023-01-04] MEDS: MIRTAZAPINE 15 MG (REMERON) TAB PO SCH (20:54)
[2023-01-04] MEDS: LORazepam 0.5 MG (ATIVAN) TABLET PO SCH (20:54)
[2023-01-04 23:42] VITALS: BP 121/73
[2023-01-05] MEDS: ONDANSETRON 4 MG/2 ML (SDV) Z0FRAN IV PRN (00:11)
[2023-01-05] MEDS: HYDROmorphone 2 MG/ML VIAL (DILAUDID) IV PRN ×5 (00:12→17:04)
[2023-01-05] MEDS: NS IV 1000 ML 1,000 ML IV SCH ×2 (00:12→17:42)
[2023-01-05 04:02] VITALS: BP 119/74
[2023-01-05 04:19] LABS: BASOPHILS % (AUTO) 0 % (0-10); EOSINOPHILS # (AUTO) 0.1 10^3/uL (0.0-0.3); EOSINOPHILS % (AUTO) 3 % (0-10); HEMATOCRIT 29 % (35-52); HEMOGLOBIN 9.6 g/dL (11.5-16.0); LYMPHOCYTES # (AUTO) 0.5 10^3/uL (1.0-4.0); LYMPHOCYTES % (AUTO) 12 % (12-44); MEAN CORPUSCULAR HEMOGLOBIN 30 pg (25-34); MEAN CORPUSCULAR HGB CONC 33 g/dL (32-36); MEAN CORPUSCULAR VOLUME 89 fL (80-99); MONOCYTES # (AUTO) 0.7 10^3/uL (0.0-1.0); MONOCYTES % (AUTO) 17 % (0-12); NEUTROPHILS # (AUTO) 2.8 10^3/uL (1.8-7.8); NEUTROPHILS % (AUTO) 66 % (42-75); PLATELET COUNT 216 10^3/uL (130-400); WHITE BLOOD COUNT 4.3 10^3/uL (4.3-11.0)
[2023-01-05 04:39] LABS: ALBUMIN 3.1 GM/DL (3.2-4.5); BILIRUBIN,TOTAL 0.4 MG/DL (0.1-1.0); CALCIUM 8.3 MG/DL (8.5-10.1); CREATININE SERUM 0.77 MG/DL (0.60-1.30); POTASSIUM 3.4 MMOL/L (3.6-5.0); TOTAL PROTEIN 5.4 GM/DL (6.4-8.2)
[2023-01-05] MEDS: SUCRALFATE 1 GM (CARAFATE) TAB PO SCH ×4 (04:52→20:16)
--- NOTE | 2023-01-05 07:01 | Progress Note ---
Subjective Date Seen by a Provider: Jan 05, 2023 Time Seen by a Provider: 11:00 Subjective/Events-last exam Pain is still an issue MS Contin and Fentanyl will hopefully attain improved status BM+ Still using Dilaudid Steroid x 1 to help pain Replacing Mag and potassium Review of Systems General: Fatigue, Malaise Focused Exam Lactate Level 01/03/23 16:56: Lactic Acid Level 1.49 Objective Exam Last Set of Vital Signs Vital Signs Date Time Temp Pulse Resp B/P (MAP) Pulse Ox O2 Delivery O2 Flow Rate FiO2 01/05/23 04:02 36.8 105 16 119/74 (89) 97 Room Air 01/04/23 23:42 0.00 0.00 01/03/23 18:34 21 Capillary Refill : I&O Intake and Output 01/05/23 00:00 Intake Total 2230 ml Output Total 600 ml Balance 1630 ml Intake Oral 1780 ml IV Total 450 ml Output Urine Total 600 ml # Voids 6 # Bowel Movements 2 General: Alert, Oriented X3, Cooperative, No Acute Distress Lungs: Clear to Auscultation, Normal Air Movement Heart: Regular Rate, Normal S1, Normal S2, No Murmurs Psych/Mental Status: Mental Status NL, Mood NL Results Lab Laboratory Tests 01/04/23 08:30: Urine Color YELLOW, Urine Clarity CLEAR, Urine pH 5.5, Urine Specific [place] >=1.030, Urine Protein 1+H, Urine Glucose (UA) 1+H, Urine Ketones TRACEH, Urine Nitrite NEGATIVE, Urine Bilirubin 2+H, Urine Urobilinogen 0.2, Urine Leukocyte Esterase 1+H, Urine RBC (Auto) NEGATIVE, Urine RBC RARE, Urine WBC 25-50H, Urine Squamous Epithelial Cells RARE, Urine Crystals PRESENTH, Urine Amorphous Sediment FEW JUDE URATESH, Urine Bacteria FEWH, Urine Casts PRESENT, Urine Hyaline Casts 0-2H, Urine Granular Casts 2-5H, Urine Mucus LARGEH, Urine Culture Indicated YES 01/05/23 03:45: White Blood Count 4.3, Red Blood Count 3.21L, Hemoglobin 9.6L, Hematocrit 29L, Mean Corpuscular Volume 89, Mean Corpuscular Hemoglobin 30, Mean Corpuscular Hemoglobin Concent 33, Red Cell Distribution Width 17.0H, Platelet Count 216, Mean Platelet Volume 10.0, Immature Granulocyte % (Auto) 2, Neutrophils (%) (Auto) 66, Lymphocytes (%) (Auto) 12, Monocytes (%) (Auto) 17H, Eosinophils (%) (Auto) 3, Basophils (%) (Auto) 0, Neutrophils # (Auto) 2.8, Lymphocytes # (Auto) 0.5L, Monocytes # (Auto) 0.7, Eosinophils # (Auto) 0.1, Basophils # (Auto) 0.0, Immature Granulocyte # (Auto) 0.1, Sodium Level 138, Potassium Level 3.4L, Chloride Level 111H, Carbon Dioxide Level 19L, Anion Gap 8, Blood Urea Nitrogen 10, Creatinine 0.77, Estimat Glomerular Filtration Rate 88, BUN/Creatinine Ratio 13, Glucose Level 87, Calcium Level 8.3L, Corrected Calcium 9.0, Total Bilirubin 0.4, Aspartate Amino Transf (AST/SGOT) 18, Alanine Aminotransferase (ALT/SGPT) 15, Alkaline Phosphatase 100, Total Protein 5.4L, Albumin 3.1L Assessment/Plan Assessment/Plan Assess & Plan/Chief Complaint Assessment: Severe weakness and dehydration Bony metastatic disease of unknown origin s/p bone biopsy undergoing aggressive radiation treatment Right hip replacement h/o then s/p fall with fracture s/p repair 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
[2023-01-05] MEDS: POTASSIUM CL 10MEQ/50ML IVPB 50 ML IV SCH ×6 (07:11→14:01)
[2023-01-05 07:37] VITALS: BP 105/71
[2023-01-05] MEDS: PANTOPRAZOLE 40 MG (PROTONIX) TAB PO SCH ×2 (08:16→20:15)
[2023-01-05] MEDS: DOCUSATE SODIUM 100 MG (COLACE) CAP PO SCH ×2 (10:15→20:17)
[2023-01-05] MEDS: SENNOSIDES 8.6 MG (SENOKOT) TAB PO SCH ×2 (10:16→20:17)
[2023-01-05 11:45] VITALS: BP 94/63
[2023-01-05] MEDS: cefTRIAXone IV/IM 1,000 MG in NS (IVPB) 50 ML IV SCH (12:01)
[2023-01-05] MEDS: morphine ER 15 MG (MS CONTIN) TAB PO SCH ×2 (12:53→20:16)
[2023-01-05] MEDS ORDERED: methylPREDNISolone 40 MG/ML (Solu-MEDROL) VIAL IV ONE (13:00)
[2023-01-05 16:05] VITALS: BP 112/75
[2023-01-05] MEDS: ENOXAPARIN 40 MG/0.4 ML (LOVENOX) SYR SC SCH (16:07)
[2023-01-05 19:58] VITALS: BP 112/71
[2023-01-05] MEDS: MELATONIN 3 MG TABLET PO SCH (20:15)
[2023-01-05] MEDS: LORazepam 0.5 MG (ATIVAN) TABLET PO SCH (20:15)
[2023-01-05] MEDS: MIRTAZAPINE 15 MG (REMERON) TAB PO SCH (20:16)
[2023-01-05 23:42] VITALS: BP 111/74
[2023-01-06] VITALS (8 sets, daily range): BP systolic 102–125; BP diastolic 61–86
[2023-01-06] MEDS: SUCRALFATE 1 GM (CARAFATE) TAB PO SCH ×4 (05:25→21:36)
[2023-01-06 05:37] LABS: BASOPHILS % (AUTO) 0 % (0-10); EOSINOPHILS % (AUTO) 0 % (0-10); HEMATOCRIT 29 % (35-52); HEMOGLOBIN 9.5 g/dL (11.5-16.0); LYMPHOCYTES # (AUTO) 0.3 10^3/uL (1.0-4.0); LYMPHOCYTES % (AUTO) 7 % (12-44); MEAN CORPUSCULAR HEMOGLOBIN 30 pg (25-34); MEAN CORPUSCULAR HGB CONC 33 g/dL (32-36); MEAN CORPUSCULAR VOLUME 90 fL (80-99); MONOCYTES # (AUTO) 0.8 10^3/uL (0.0-1.0); MONOCYTES % (AUTO) 16 % (0-12); NEUTROPHILS # (AUTO) 3.5 10^3/uL (1.8-7.8); NEUTROPHILS % (AUTO) 73 % (42-75); PLATELET COUNT 222 10^3/uL (130-400); WHITE BLOOD COUNT 4.8 10^3/uL (4.3-11.0)
[2023-01-06 05:57] LABS: ALBUMIN 3.1 GM/DL (3.2-4.5); BILIRUBIN,TOTAL 0.3 MG/DL (0.1-1.0); CALCIUM 8.4 MG/DL (8.5-10.1); CREATININE SERUM 0.77 MG/DL (0.60-1.30); POTASSIUM 4.5 MMOL/L (3.6-5.0); TOTAL PROTEIN 5.5 GM/DL (6.4-8.2)
[2023-01-06] MEDS ORDERED: CHOL-34 PO ×2 (08:29)
[2023-01-06] MEDS ORDERED: NALO4SPR3 NSEACH ×2 (08:29)
[2023-01-06] MEDS ORDERED: FENT1PAT10 TD ×2 (08:29)
[2023-01-06] MEDS ORDERED: NYST1000 PO ×2 (08:29)
[2023-01-06] MEDS ORDERED: OXYC10TA7 PO (08:29)
[2023-01-06] MEDS ORDERED: DOCU100T7 PO ×2 (08:29)
[2023-01-06] MEDS ORDERED: ONDA8TAB13 PO ×2 (08:29)
--- NOTE | 2023-01-06 09:15 | Progress Note ---
Subjective Date Seen by a Provider: Jan 06, 2023 Time Seen by a Provider: 11:00 Subjective/Events-last exam Patient doing a lot better Pseudomonas and UTI so changed to fluoroquinolone Feels much better Fentanyl patch of 100 mcg and MS Contin of 15 Mg twice daily along with oxycodone for breakthrough pain seems to be helping Bowels are moving Review of Systems General: Fatigue, Malaise Focused Exam Lactate Level 01/03/23 16:56: Lactic Acid Level 1.49 Objective Exam Last Set of Vital Signs Vital Signs Date Time Temp Pulse Resp B/P (MAP) Pulse Ox O2 Delivery O2 Flow Rate FiO2 01/06/23 08:17 36.3 110 18 125/80 (95) 97 Room Air 01/06/23 03:14 0.00 0.00 01/06/23 01:00 21 Capillary Refill : I&O Intake and Output 01/06/23 00:00 Intake Total 1940 ml Output Total 650 ml Balance 1290 ml Intake Oral 1640 ml IV Total 300 ml Output Urine Total 650 ml # Voids 6 General: Alert, Oriented X3, Cooperative, No Acute Distress Lungs: Clear to Auscultation, Normal Air Movement Heart: Regular Rate, Normal S1, Normal S2, No Murmurs Psych/Mental Status: Mental Status NL, Mood NL Results Lab Laboratory Tests 01/06/23 05:25: White Blood Count 4.8, Red Blood Count 3.18L, Hemoglobin 9.5L, Hematocrit 29L, Mean Corpuscular Volume 90, Mean Corpuscular Hemoglobin 30, Mean Corpuscular Hemoglobin Concent 33, Red Cell Distribution Width 17.2H, Platelet Count 222, Mean Platelet Volume 10.0, Immature Granulocyte % (Auto) 4, Neutrophils (%) (Auto) 73, Lymphocytes (%) (Auto) 7L, Monocytes (%) (Auto) 16H, Eosinophils (%) (Auto) 0, Basophils (%) (Auto) 0, Neutrophils # (Auto) 3.5, Lymphocytes # (Auto) 0.3L, Monocytes # (Auto) 0.8, Eosinophils # (Auto) 0.0, Basophils # (Auto) 0.0, Immature Granulocyte # (Auto) 0.2H, Sodium Level 136, Potassium Level 4.5, Chloride Level 108H, Carbon Dioxide Level 21, Anion Gap 7, Blood Urea Nitrogen 11, Creatinine 0.77, Estimat Glomerular Filtration Rate 88, BUN/Creatinine Ratio 14, Glucose Level 125H, Calcium Level 8.4L, Corrected Calcium 9.1, Total Bilirubin 0.3, Aspartate Amino Transf (AST/SGOT) 15, Alanine Aminotransferase (ALT/SGPT) 13, Alkaline Phosphatase 98, Total Protein 5.5L, Albumin 3.1L Microbiology 01/04/23 Urine Culture - Preliminary, Resulted Gram Negative Bacillus 1 Mixed Bacterial [place] Assessment/Plan Assessment/Plan Assess & Plan/Chief Complaint Assessment: Severe weakness and dehydration Bony metastatic disease of unknown origin s/p bone biopsy undergoing aggressive radiation treatment Right hip replacement h/o then s/p fall with fracture s/p repair 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
[2023-01-06] MEDS: DOCUSATE SODIUM 100 MG (COLACE) CAP PO SCH ×2 (09:23→21:36)
[2023-01-06] MEDS: SENNOSIDES 8.6 MG (SENOKOT) TAB PO SCH ×2 (09:23→21:36)
[2023-01-06] MEDS: PANTOPRAZOLE 40 MG (PROTONIX) TAB PO SCH ×2 (09:23→21:36)
[2023-01-06] MEDS: morphine ER 15 MG (MS CONTIN) TAB PO SCH ×2 (09:23→21:36)
--- NOTE | 2023-01-06 11:26 | Physical Therapy Evaluation ---
PT Evaluation-General Medical Diagnosis Admission Date Jan 03, 2023 at 15:35 Medical Diagnosis: pain control Onset Date: Jan 03, 2023 Therapy Diagnosis Therapy Diagnosis: debility/weakness Precautions Precautions/Isolations: Fall Prevention, Standard Precautions Referral Physician: Vinay Reason for Referral: Evaluation/Treatment Medical History Additional Medical History metastatic breast cancer to spine and bone Current History Direct admit for pain control Reviewed History: Yes Social History Home: Single Level Current Living Status: Spouse Entry Into Home: Level Entry Prior Prior Level of Function SCALE: Activities may be completed with or without assistive devices. 8-Putbdrluka-nhecmxd completes the activity by him/herself with no assistance from a helper. 5-Set-up or Clean-up Assistance-helper sets up or cleans up; patient completes activity. [place] assists only prior to or following the activity. 4-Supervision or Touching Assistance-helper provides verbal cues and/or josemanuel che/steadying and/or contact guard assistance as patient completes activity. Assistance may be provided throughout the activity or intermittently. 3-Partial/Moderate Assistance-helper does LESS THAN HALF the effort. [place] lifts, holds or supports trunk or limbs, but provides less than half the effort. 2-Substantial/Maximal Assistance-helper does MORE THAN HALF the effort. [place] lifts or holds trunk or limbs and provides more than half the effort. 6-Wgkqnzvju-mnpzpe does ALL the effort. Patient does none of the effort to complete the activity. Or, the assistance of 2 or more helpers is required for the patient to complete the activity. If activity was not attempted, code reason: 7-Patient Refused. 9-Not Applicable-not attempted and the patient did not perform the activity before the current illness, exacerbation or injury. 10-Not Attempted due to Environmental Limitations-(lack of equipment, weather restraints, etc.). 88-Not Attempted due to Medical Conditions or Safety Concerns. Bed Mobility: 4 Transfers (B,C,W/C): 3 Gait: 3 Indoor Mobility (Ambulation): Needed Some Help Prior Devices Use: Walker PT Evaluation-Current Subjective Patient agrees to therapy. Objective Patient Orientation: Normal For Age Attachments: IV ROM/Strength ROM Lower Extremities bilateral LE WFL Strength Lower Extremities 3/5 grossly bilateral LE all planes Integumentary/Posture Bowel Incontinence: No Bladder Incontinence: No Posture WFL Neuromuscular (Tone, Coordination, Reflexes) diminished bilateral LE coordination/proprioception Sensory Vision: Functional Hearing: Functional Transfers Sit to Lying (QC): 6 Lying to Sitting/Side of Bed(Q: 6 Sit to Stand (QC): 4 Gait Mode of Locomotion: Walk Anticipated Mode of Locomotion: Both Walk 10 feet (QC): 4 Walk 50 ft with 2 Turns(QC): 4 Walk 150 ft (QC): 4 Distance: 250' Gait Assistive Device: FWW Comments/Gait Description CGA for safety Balance Sitting Static: Normal Sitting Dynamic: Normal Standing Static: Fair Standing Dynamic: Fair Assessment/Needs Patient has notably bilateral LE weakness and coordination/proprioception making gait difficult. Patient will benefit from skilled PT to address functional strength and mobility to improve current LOF to safely return to home with spouse at maximum LOF. Rehab Potential: Guarded PT Local Driver Goals Mcfp Goals PT Local Driver Goals Time Frame: Jan 18, 2023 Roll Left & Right (QC): 6 Sit to Lying (QC): 6 Lying-Sitting on Side/Bed(QC): 6 Sit to Stand (QC): 4 Chair/Nfx-rl-Ljoth Xfer(QC): 4 Toilet Transfer (QC): 4 Walk 10 feet (QC): 4 Walk 50ft with 2 Turns (QC): 4 Walk 150 ft (QC): 4 PT Plan Problem List Problem List: Activity Tolerance, Functional Strength, Safety, Balance, Gait, Transfer Treatment/Plan Treatment Plan: Continue Plan of Care Treatment Plan: Education, Functional Activity Ravinder, Functional Strength, Gait, Safety, Therapeutic Exercise, Transfers Treatment Duration: Jan 18, 2023 Frequency: 5 times per week Estimated Hrs Per Day: .25 hour per day Patient and/or Family Agrees t: Yes Time Time In: 1023 Time Out: 1033 DATE: Jan 06, 2023 Total Billed Treatment Time: 10 Total Billed Treatment 1 visit EVModC 10 min SHANTA BALLESTEROS PT Jan 06, 2023 11:26
[2023-01-06] MEDS: cefTRIAXone IV/IM 1,000 MG in NS (IVPB) 50 ML IV SCH (12:57)
--- NOTE | 2023-01-06 13:01 | Occupational Therapy Eval ---
OT Evaluation-General/PLF Medical Diagnosis Admission Date Jan 03, 2023 at 15:35 Medical Diagnosis: Debility Onset Date: Jan 03, 2023 Therapy Diagnosis Therapy Diagnosis: Dehydration/severe weakness Precautions Precautions/Isolations: Airborne Isolation, Fall Prevention, Standard Precautions Referral Physician: Vinay Amador Reason: Activity Tolerance, Self Care, Evaluation/Treatment, Strengthening/ROM Medical History Additional Medical History Chemotherapy, breast CA, bony mets widespread, right hip fx 6 months ago with anterior approach replacement. Social History Home: Single Level Current Living Status: Spouse Entry Into Home: Level Entry ADL-Prior Level of Function SCALE: Activities may be completed with or without assistive devices. 4-Skufhzzzcj-ohcdtge completes the activity by him/herself with no assistance from a helper. 5-Set-up or Clean-up Assistance-helper sets up or cleans up; patient completes activity. [place] assists only prior to or following the activity. 4-Supervision or Touching Assistance-helper provides verbal cues and/or touching/steadying and/or contact guard assistance as patient completes activity. Assistance may be provided throughout the activity or intermittently. 3-Partial/Moderate Assistance-helper does LESS THAN HALF the effort. [place] lifts, holds or supports trunk or limbs, but provides less than half the effort. 2-Substantial/Maximal Assistance-helper does MORE THAN HALF the effort. [place] lifts or holds trunk or limbs and provides more than half the effort. 9-Ibeqketsa-eagvzm does ALL the effort. Patient does none of the effort to complete the activity. Or, the assistance of 2 or more helpers is required for the patient to complete the activity. If activity was not attempted, code reason: 7-Patient Refused. 9-Not Applicable-not attempted and the patient did not perform the activity before the current illness, exacerbation or injury. 10-Not Attempted due to Environmental Limitations-(lack of equipment, weather restraints, etc.). 88-Not Attempted due to Medical Conditions or Safety Concerns. ADL PLOF Comments Pt. was fully independent with ADLs. She has recently been using a walker. Self Care: Independent Functional Cognition: Independent DME/Equipment: Bath Chair, Shower DME/Equipment Comments Pt. has a walker, wheelchair, and cane. OT Current Status Subjective Pt. states that she feels weak. Mental Status/Objective Patient Orientation: Person, Place, Time, Situation Attachments: IV Current Upper Extremity ROM WFL ADL-Treatment Eating (QC): 6 Pt. is dressed. She reports that she has been having some difficulty overall reaching her feet due to back pain. Pt. reports that at home she has a system to don socks, shoes, and pants over feet. She states that she will sit in her recliner and lay back. If she does in fact have difficulty, her spouse will assist her. Other Treatments Pt. agrees to get up from bed. She transfers with SBA to EOB. Pt stands with CGA and ambulates in hallway with walker and CGA. She does demonstrate weakness in bilateral LE, but reports no feelings of dizziness or nausea. Pt. declines sitting up in her chair. She requests to lay back down. She is able to sit and transfer supine with SBA. OT educates pt. on adaptive equipment for donning socks and pants. Pt. politely declines and states that she really doesn't want to have to use equipment. She states, "my can keep helping me." Pt. requests a Sprite Zero and OT retrieves this for her. All needs met. Education OT Patient Education: Correct positioning, Progress toward Goal/Update tx plan, Purpose of tx/functional activities, Reviewed precautions, Rehab process, Leonard sfer techniques Teaching Recipient: Patient Teaching Methods: Demonstration, Discussion Response to Teaching: Verbalize Understanding, Return Demonstration OT Correction Goals Outpatient Coder Goals Time Frame: Jan 13, 2023 Eating (QC): 6 Oral Hygiene (QC): 5 (Set up at sink) Toileting Hygiene (QC): 4 (Supervision as needed for maryam cleanse.) Upper Body Dressing (QC): 5 Additional Goals: 3-ImproveStrength/Ravinder 1=Demonstrate adherence to instructed precautions during ADL tasks. 2=Patient will verbalize/demonstrate understanding of assistive devices /modifications for ADL. 3=Patient will improve strength/tolerance for activity to enable patient to perform ADL's. Pt. will demonstrate ability to perform simple ADL skills with appropriate endurance for skill completion. OT to issue pt. HEP. OT Education/Plan Problem List/Assessment Assessment: Decreased Activ Tolerance, Decreased UE Strength, Impaired I ADL's, Impaired Self-Care Skills Discharge Recommendations Plan/Recommendations: Continue POC Treatment Plan/Plan of Care Treatment,Training & Education: Yes Patient would benefit from OT for education, treatment and training to promote independence in ADL's, mobility, safety and/or upper extremity function for ADL's. Plan of Care: ADL Retraining, Functional Mobility, UE Funct Exercise/Act Treatment Duration: Jan 13, 2023 Frequency: 3 times per week (3-5x/week) Estimated Hrs Per Day: .25 hour per day Agreement: Yes Rehab Potential: Fair Time Start Time: 10:23 Stop Time: 10:33 DATE: Jan 06, 2023 Total Time Billed (hr/min): 10 Billed Treatment Time 1, EVM x 10minutes SHIRA ACEVES OT Jan 06, 2023 13:01
[2023-01-06] MEDS: CEFEPIME INJECTION 1,000 MG in NS (IVPB) 50 ML IV SCH ×2 (15:14→21:35)
[2023-01-06] MEDS: HYDROmorphone 2 MG/ML VIAL (DILAUDID) IV PRN ×2 (15:14→23:45)
[2023-01-06] MEDS: ENOXAPARIN 40 MG/0.4 ML (LOVENOX) SYR SC SCH (16:10)
[2023-01-06] MEDS: MIRTAZAPINE 15 MG (REMERON) TAB PO SCH (21:36)
[2023-01-06] MEDS: LORazepam 0.5 MG (ATIVAN) TABLET PO SCH (21:36)
[2023-01-06] MEDS: MELATONIN 3 MG TABLET PO SCH (21:36)
[2023-01-07] MEDS: HYDROmorphone 2 MG/ML VIAL (DILAUDID) IV PRN ×4 (02:15→13:30)
[2023-01-07] MEDS: CEFEPIME INJECTION 1,000 MG in NS (IVPB) 50 ML IV SCH ×3 (02:18→13:14)
[2023-01-07 03:33] VITALS: BP 112/80
[2023-01-07 04:50] LABS: BASOPHILS % (AUTO) 0 % (0-10); EOSINOPHILS # (AUTO) 0.2 10^3/uL (0.0-0.3); EOSINOPHILS % (AUTO) 5 % (0-10); HEMATOCRIT 30 % (35-52); HEMOGLOBIN 9.8 g/dL (11.5-16.0); LYMPHOCYTES # (AUTO) 0.8 10^3/uL (1.0-4.0); LYMPHOCYTES % (AUTO) 16 % (12-44); MEAN CORPUSCULAR HEMOGLOBIN 30 pg (25-34); MEAN CORPUSCULAR HGB CONC 33 g/dL (32-36); MEAN CORPUSCULAR VOLUME 91 fL (80-99); MEAN PLATELET VOLUME 9.8 fL (9.0-12.2); MONOCYTES # (AUTO) 0.7 10^3/uL (0.0-1.0); MONOCYTES % (AUTO) 14 % (0-12); NEUTROPHILS # (AUTO) 2.9 10^3/uL (1.8-7.8); NEUTROPHILS % (AUTO) 60 % (42-75); PLATELET COUNT 214 10^3/uL (130-400); WHITE BLOOD COUNT 4.9 10^3/uL (4.3-11.0)
[2023-01-07] MEDS: SUCRALFATE 1 GM (CARAFATE) TAB PO SCH ×2 (04:59→10:07)
[2023-01-07 05:05] LABS: ALBUMIN 3.2 GM/DL (3.2-4.5); BILIRUBIN,TOTAL 0.3 MG/DL (0.1-1.0); CALCIUM 9.1 MG/DL (8.5-10.1); CREATININE SERUM 0.81 MG/DL (0.60-1.30); POTASSIUM 3.7 MMOL/L (3.6-5.0); TOTAL PROTEIN 5.5 GM/DL (6.4-8.2)
[2023-01-07 07:30] VITALS: BP 137/85
[2023-01-07] MEDS: DOCUSATE SODIUM 100 MG (COLACE) CAP PO SCH (08:56)
[2023-01-07] MEDS: PANTOPRAZOLE 40 MG (PROTONIX) TAB PO SCH (08:56)
[2023-01-07] MEDS: SENNOSIDES 8.6 MG (SENOKOT) TAB PO SCH (08:56)
[2023-01-07] MEDS: morphine ER 15 MG (MS CONTIN) TAB PO SCH (08:56)
--- NOTE | 2023-01-07 10:37 | Physical Therapy Daily Note ---
PT Daily Note-Current Subjective Patient agrees to PT. Pain Section J - Health Conditions 1. Rarely or not at all 2. Occasionally 3. Frequently 4. Almost constantly 8. Unable to answer Pain Effect on Sleep: 3 Pain Interference with Therapy: 2 Pain Interference w/Day-to-Day: 3 Mental Status Patient Orientation: Normal For Age Transfers SCALE: Activities may be completed with or without assistive devices. 5-Emxzgwworu-hfalfsf completes the activity by him/herself with no assistance from a helper. 5-Set-up or Clean-up Assistance-helper sets up or cleans up; patient completes activity. [place] assists only prior to or following the activity. 4-Supervision or Touching Assistance-helper provides verbal cues and/or touching/steadying and/or contact guard assistance as patient completes activity. Assistance may be provided throughout the activity or intermittently. 3-Partial/Moderate Assistance-helper does LESS THAN HALF the effort. [place] lifts, holds or supports trunk or limbs, but provides less than half the effort. 2-Substantial/Maximal Assistance-helper does MORE THAN HALF the effort. [place] lifts or holds trunk or limbs and provides more than half the effort. 5-Pnoanathh-yitnlt does ALL the effort. Patient does none of the effort to complete the activity. Or, the assistance of 2 or more helpers is required for the patient to complete the activity. If activity was not attempted, code reason: 7-Patient Refused. 9-Not Applicable-not attempted and the patient did not perform the activity before the current illness, exacerbation or injury. 10-Not Attempted due to Environmental Limitations-(lack of equipment, weather restraints, etc.). 88-Not Attempted due to Medical Conditions or Safety Concerns. Sit to Lying (QC): 6 Lying to Sitting/Side of Bed(Q: 6 Sit to Stand (QC): 4 Gait Training Distance: 275' Walk 10 feet (QC): 4 Walk 50 ft with 2 Turns(QC): 4 Walk 150 ft (QC): 4 Gait Assistive Device: FWW slow, steady gait sequence Assessment Patient tolerated treatment well and returned to bed due to back pain. Plan dismissal this week. PT Grocery Store Associate Goals Group Home Goals PT Group Home Goals Time Frame: Jan 18, 2023 Roll Left & Right (QC): 6 Sit to Lying (QC): 6 Lying-Sitting on Side/Bed(QC): 6 Sit to Stand (QC): 4 Chair/Biy-ej-Ycald Xfer(QC): 4 Toilet Transfer (QC): 4 Walk 10 feet (QC): 4 Walk 50ft with 2 Turns (QC): 4 Walk 150 ft (QC): 4 PT Plan Treatment/Plan Treatment Plan: Continue Plan of Care Treatment Plan: Education, Functional Activity Ravinder, Functional Strength, Gait, Safety, Therapeutic Exercise, Transfers Treatment Duration: Jan 18, 2023 Frequency: 5 times per week Estimated Hrs Per Day: .25 hour per day Patient and/or Family Agrees t: Yes Time Time In: 947 Time Out: 957 DATE: Jan 07, 2023 Total Billed Treatment Time: 10 Total Billed Treatment 1 visit FA 10 min SHANTA BALLESTEROS PT Jan 07, 2023 10:37
[2023-01-07 11:13] VITALS: BP 109/77
[2023-01-07] MEDS ORDERED: SUCR1TAB PO ×2 (12:06)
[2023-01-07] MEDS ORDERED: LEVO750T PO ×2 (12:06)
[2023-01-07] MEDS ORDERED: LORA-404 PO ×2 (12:06)
[2023-01-07] MEDS ORDERED: MORP-68 PO ×2 (12:06)
[2023-01-07] MEDS ORDERED: SNN187T PO ×2 (12:06)
[2023-01-07] MEDS ORDERED: OXYC10TA7 PO ×2 (12:06)
[2023-01-07] MEDS ORDERED: FENT1PAT11 TD ×2 (12:06)
[2023-01-07] MEDS ORDERED: MIRT-47 PO ×2 (12:06)
[2023-01-07] MEDS ORDERED: PANT40TA52 PO ×2 (12:06)
--- NOTE | 2023-01-07 12:08 | Discharge Summary ---
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 and managed by Dr Michell HUBBARD 04/2022 40% EF HLP UTI with Pseudomonas Discharge Summary Discharge Physical Examination Allergies: Coded Allergies: No Known Drug Allergies (Unverified , 01/27/22) Vitals & I&Os Vital Signs Date Time Temp Pulse Resp B/P (MAP) Pulse Ox O2 Delivery O2 Flow Rate FiO2 01/07/23 13:40 36.3 106 18 109/77 97 Room Air 01/06/23 03:14 0.00 0.00 01/06/23 01:00 21 General Appearance: Alert, Oriented X3, Cooperative Respiratory: Clear to Auscultation Cardiovascular: Regular Rate Psych/Mental Status: Mental Status NL Hospital Course Was the Problem List Reviewed?: Yes Lengthy course after she was admitted from [facility] after port placement and bone biopsy. Severe pain from bone cancer required lengthy course with increased Fentanyl patch to 100mcg and addition of MS Contin 15mg PO BID along with Percocet. BM regimen maintained. IVF maintained and DC after hydration. [place] med[place]. UTI dx with Pseudomonas so placed on Cefepime and [place]. Dr Santos will see her tomorrow in f/u. Labs (last 24 hrs) Laboratory Tests 01/03/23 16:56: White Blood Count 8.6, Red Blood Count 4.15, Hemoglobin 12.3, Hematocrit 36, Mean Corpuscular Volume 88, Mean Corpuscular Hemoglobin 30, Mean Corpuscular Hemoglobin Concent 34, Red Cell Distribution Width 16.5H, Platelet Count 278, Mean Platelet Volume 9.5, Immature Granulocyte % (Auto) 1, Neutrophils (%) (Auto) 78H, Lymphocytes (%) (Auto) 4L, Monocytes (%) (Auto) 16H, Eosinophils (%) (Auto) 0, Basophils (%) (Auto) 0, Neutrophils # (Auto) 6.7, Lymphocytes # (Auto) 0.4L, Monocytes # (Auto) 1.4H, Eosinophils # (Auto) 0.0, Basophils # (Auto) 0.0, Immature Granulocyte # (Auto) 0.1, Neutrophils % (Manual) , Sodium Level 138, Potassium Level 3.7, Chloride Level 105, Carbon Dioxide Level 17L, Anion Gap 16H , Blood Urea Nitrogen 16, Creatinine 0.99, Estimat Glomerular Filtration Rate 65, BUN/Creatinine Ratio 16, Glucose Level 118H, Lactic Acid Level 1.49, Calcium Level 9.1, Corrected Calcium 9.3, Magnesium Level 1.6, Total Bilirubin 0.5, Aspartate Amino Transf (AST/SGOT) 27, Alanine Aminotransferase (ALT/SGPT) 24, Alkaline Phosphatase 121, Total Protein 6.9, Albumin 3.8 01/04/23 04:06: White Blood Count 6.0, Red Blood Count 3.66L, Hemoglobin 10.8L, Hematocrit 32L, Mean Corpuscular Volume 88, Mean Corpuscular Hemoglobin 30, Mean Corpuscular Hemoglobin Concent 33, Red Cell Distribution Width 16.7H, Platelet Count 263, Mean Platelet Volume 9.6, Immature Granulocyte % (Auto) 2, Neutrophils (%) (Auto) 68, Lymphocytes (%) (Auto) 9L, Monocytes (%) (Auto) 18H, Eosinophils (%) (Auto) 3, Basophils (%) (Auto) 0, Neutrophils # (Auto) 4.1, Lymphocytes # (Auto) 0.5L, Monocytes # (Auto) 1.1H, Eosinophils # (Auto) 0.2, Basophils # (Auto) 0.0, Immature Granulocyte # (Auto) 0.1, Sodium Level 139, Potassium Level 3.5L, Chloride Level 109H, Carbon Dioxide Level 20L, Anion Gap 10, Blood Urea Nitrogen 14, Creatinine 0.96, Estimat Glomerular Filtration Rate 68, BUN/Creatinine Ratio 15, Glucose Level 89, Calcium Level 8.7, Corrected Calcium 9.1, Total Bilirubin 0.5, Aspartate Amino Transf (AST/SGOT) 25, Alanine Aminotransferase (ALT/SGPT) 22, Alkaline Phosphatase 109, Total Protein 6.0L, Albumin 3.5 01/04/23 08:30: Urine Color YELLOW, Urine Clarity CLEAR, Urine pH 5.5, Urine Specific [place] >=1.030, Urine Protein 1+H, Urine Glucose (UA) 1+H, Urine Ketones TRACEH, Urine Nitrite NEGATIVE, Urine Bilirubin 2+H, Urine Urobilinogen 0.2, Urine Leukocyte Esterase 1+H, Urine RBC (Auto) NEGATIVE, Urine RBC RARE, Urine WBC 25-50H, Urine Squamous Epithelial Cells RARE, Urine Crystals PRESENTH, Urine Amorphous Sediment FEW JUDE URATESH, Urine Bacteria FEWH, Urine Casts PRESENT, Urine Hyaline Casts 0-2H, Urine Granular Casts 2-5H, Urine Mucus LARGEH, Urine Culture Indicated YES 01/05/23 03:45: White Blood Count 4.3, Red Blood Count 3.21L, Hemoglobin 9.6L, Hematocrit 29L, Mean Corpuscular Volume 89, Mean Corpuscular Hemoglobin 30, Mean Corpuscular Hemoglobin Concent 33, Red Cell Distribution Width 17.0H, Platelet Count 216, Mean Platelet Volume 10.0, Immature Granulocyte % (Auto) 2, Neutrophils (%) (Auto) 66, Lymphocytes (%) (Auto) 12, Monocytes (%) (Auto) 17H, Eosinophils (%) (Auto) 3, Basophils (%) (Auto) 0, Neutrophils # (Auto) 2.8, Lymphocytes # (Auto) 0.5L, Monocytes # (Auto) 0.7, Eosinophils # (Auto) 0.1, Basophils # (Auto) 0.0, Immature Granulocyte # (Auto) 0.1, Sodium Level 138, Potassium Level 3.4L, Chloride Level 111H, Carbon Dioxide Level 19L, Anion Gap 8, Blood Urea Nitrogen 10, Creatinine 0.77, Estimat Glomerular Filtration Rate 88, BUN/Creatinine Ratio 13, Glucose Level 87, Calcium Level 8.3L, Corrected Calcium 9.0, Magnesium Level 1.6, Total Bilirubin 0.4, Aspartate Amino Transf (AST/SGOT) 18, Alanine Aminotransferase (ALT/SGPT) 15, Alkaline Phosphatase 100, Total Protein 5.4L, Albumin 3.1L 01/06/23 05:25: White Blood Count 4.8, Red Blood Count 3.18L, Hemoglobin 9.5L, Hematocrit 29L, Mean Corpuscular Volume 90, Mean Corpuscular Hemoglobin 30, Mean Corpuscular Hemoglobin Concent 33, Red Cell Distribution Width 17.2H, Platelet Count 222, Me an Platelet Volume 10.0, Immature Granulocyte % (Auto) 4, Neutrophils (%) (Auto) 73, Lymphocytes (%) (Auto) 7L, Monocytes (%) (Auto) 16H, Eosinophils (%) (Auto) 0, Basophils (%) (Auto) 0, Neutrophils # (Auto) 3.5, Lymphocytes # (Auto) 0.3L, Monocytes # (Auto) 0.8, Eosinophils # (Auto) 0.0, Basophils # (Auto) 0.0, Immature Granulocyte # (Auto) 0.2H, Sodium Level 136, Potassium Level 4.5, Chloride Level 108H, Carbon Dioxide Level 21, Anion Gap 7, Blood Urea Nitrogen 11, Creatinine 0.77, Estimat Glomerular Filtration Rate 88, BUN/Creatinine Ratio 14, Glucose Level 125H, Calcium Level 8.4L, Corrected Calcium 9.1, Total Bilirubin 0.3, Aspartate Amino Transf (AST/SGOT) 15, Alanine Aminotransferase (ALT/SGPT) 13, Alkaline Phosphatase 98, Total Protein 5.5L, Albumin 3.1L 01/07/23 04:35: White Blood Count 4.9, Red Blood Count 3.25L, Hemoglobin 9.8L, Hematocrit 30L, Mean Corpuscular Volume 91, Mean Corpuscular Hemoglobin 30, Mean Corpuscular Hemoglobin Concent 33, Red Cell Distribution Width 17.4H, Platelet Count 214, Mean Platelet Volume 9.8, Immature Granulocyte % (Auto) 6, Neutrophils (%) (Auto) 60, Lymphocytes (%) (Auto) 16, Monocytes (%) (Auto) 14H, Eosinophils (%) (Auto) 5, Basophils (%) (Auto) 0, Neutrophils # (Auto) 2.9, Lymphocytes # (Auto) 0.8L, Monocytes # (Auto) 0.7, Eosinophils # (Auto) 0.2, Basophils # (Auto) 0.0, Immature Granulocyte # (Auto) 0.3H, Sodium Level 138, Potassium Level 3.7, Chloride Level 108H, Carbon Dioxide Level 23, Anion Gap 7, Blood Urea Nitrogen 14, Creatinine 0.81, Estimat Glomerular Filtration Rate 83, BUN/Creatinine Ratio 17, Glucose Level 89, Calcium Level 9.1, Corrected Calcium 9.7, Total Bilirubin 0.3, Aspartate Amino Transf (AST/SGOT) 17, Alanine Aminotransferase (ALT/SGPT) 13, Alkaline Phosphatase 102, Total Protein 5.5L, Albumin 3.2 Microbiology 01/04/23 Urine Culture - Preliminary, Resulted Pseudomonas aeruginosa Susceptibility To Follow Mixed Bacterial Elda Pending Labs Microbiology Date/Time Source Procedure Growth Status 01/04/23 08:30 Urine Clean Catch Urine Culture - Preliminary Pseudomonas aeruginosa Susceptibility To Follow Mixed Bacterial Elda Resulted Laboratory Tests 01/03/23 16:56: White Blood Count 8.6, Red Blood Count 4.15, Hemoglobin 12.3, Hematocrit 36, Mean Corpuscular Volume 88, Mean Corpuscular Hemoglobin 30, Mean Corpuscular H emoglobin Concent 34, Red Cell Distribution Width 16.5, Platelet Count 278, Mean Platelet Volume 9.5, Immature Granulocyte % (Auto) 1, Neutrophils (%) (Auto) 78, Lymphocytes (%) (Auto) 4, Monocytes (%) (Auto) 16, Eosinophils (%) (Auto) 0, Basophils (%) (Auto) 0, Neutrophils # (Auto) 6.7, Lymphocytes # (Auto) 0.4, Monocytes # (Auto) 1.4, Eosinophils # (Auto) 0.0, Basophils # (Auto) 0.0, Immature Granulocyte # (Auto) 0.1, Neutrophils % (Manual) , Sodium Level 138, Potassium Level 3.7, Chloride Level 105, Carbon Dioxide Level 17, Anion Gap 16, Blood Urea Nitrogen 16, Creatinine 0.99, Estimat Glomerular Filtration Rate 65, BUN/Creatinine Ratio 16, Glucose Level 118, Lactic Acid Level 1.49, Calcium Level 9.1, Corrected Calcium 9.3, Magnesium Level 1.6, Total Bilirubin 0.5, Aspartate Amino Transf (AST/SGOT) 27, Alanine Aminotransferase (ALT/SGPT) 24, Alkaline Phosphatase 121, Total Protein 6.9, Albumin 3.8 01/04/23 04:06: White Blood Count 6.0, Red Blood Count 3.66, Hemoglobin 10.8, Hematocrit 32, Mean Corpuscular Volume 88, Mean Corpuscular Hemoglobin 30, Mean Corpuscular Hemoglobin Concent 33, Red Cell Distribution Width 16.7, Platelet Count 263, Mean Platelet Volume 9.6, Immature Granulocyte % (Auto) 2, Neutrophils (%) (Auto) 68, Lymphocytes (%) (Auto) 9, Monocytes (%) (Auto) 18, Eosinophils (%) (Auto) 3, Basophils (%) (Auto) 0, Neutrophils # (Auto) 4.1, Lymphocytes # (Auto) 0.5, Monocytes # (Auto) 1.1, Eosinophils # (Auto) 0.2, Basophils # (Auto) 0.0, Immature Granulocyte # (Auto) 0.1, Sodium Level 139, Potassium Level 3.5, Chloride Level 109, Carbon Dioxide Level 20, Anion Gap 10, Blood Urea Nitrogen 14, Creatinine 0.96, Estimat Glomerular Filtration Rate 68, BUN/Creatinine Ratio 15, Glucose Level 89, Calcium Level 8.7, Corrected Calcium 9.1, Total Bilirubin 0.5, Aspartate Amino Transf (AST/SGOT) 25, Alanine Aminotransferase (ALT/SGPT) 22, Alkaline Phosphatase 109, Total Protein 6.0, Albumin 3.5 01/04/23 08:30: Urine Color YELLOW, Urine Clarity CLEAR, Urine pH 5.5, Urine Specific [place] >=1.030, Urine Protein 1+, Urine Glucose (UA) 1+, Urine Ketones TRACE, Urine Nitrite NEGATIVE, Urine Bilirubin 2+, Urine Urobilinogen 0.2, Urine Leukocyte Esterase 1+, Urine RBC (Auto) NEGATIVE, Urine RBC RARE, Urine WBC 25-50, Urine Squamous Epithelial Cells RARE, Urine Crystals PRESENT, Urine Amorphous Sediment FEW JUDE URATES, Urine Bacteria FEW, Urine Casts PRESENT, Urine Hyaline Casts 0- 2, Urine Granular Casts 2-5, Urine Mucus LARGE, Urine Culture Indicated YES 01/05/23 03:45: White Blood Count 4.3, Red Blood Count 3.21, Hemoglobin 9.6, Hematocrit 29, Mean Corpuscular Volume 89, Mean Corpuscular Hemoglobin 30, Mean Corpuscular Hemoglobin Concent 33, Red Cell Distribution Width 17.0, Platelet Count 216, Mean Platelet Volume 10.0, Immature Granulocyte % (Auto) 2, Neutrophils (%) (Auto) 66, Lymphocytes (%) (Auto) 12, Monocytes (%) (Auto) 17, Eosinophils (%) (Auto) 3, Basophils (%) (Auto) 0, Neutrophils # (Auto) 2.8, Lymphocytes # (Auto) 0.5, Monocytes # (Auto) 0.7, Eosinophils # (Auto) 0.1, Basophils # (Auto) 0.0, Immature Granulocyte # (Auto) 0.1, Sodium Level 138, Potassium Level 3.4, Chloride Level 111, Carbon Dioxide Level 19, Anion Gap 8, Blood Urea Nitrogen 10, Creatinine 0.77, Estimat Glomerular Filtration Rate 88, BUN/Creatinine Ratio 13, Glucose Level 87, Calcium Level 8.3, Corrected Calcium 9.0, Magnesium Level 1.6, Total Bilirubin 0.4, Aspartate Amino Transf (AST/SGOT) 18, Alanine Aminotransferase (ALT/SGPT) 15, Alkaline Phosphatase 100, Total Protein 5.4, Albumin 3.1 01/06/23 05:25: White Blood Count 4.8, Red Blood Count 3.18, Hemoglobin 9.5, Hematocrit 29, Mean Corpuscular Volume 90, Mean Corpuscular Hemoglobin 30, Mean Corpuscular Hemoglobin Concent 33, Red Cell Distribution Width 17.2, Platelet Count 222, Mean Platelet Volume 10.0, Immature Granulocyte % (Auto) 4, Neutrophils (%) (Auto) 73, Lymphocytes (%) (Auto) 7, Monocytes (%) (Auto) 16, Eosinophils (%) (Auto) 0, Basophils (%) (Auto) 0, Neutrophils # (Auto) 3.5, Lymphocytes # (Auto) 0.3, Monocytes # (Auto) 0.8, Eosinophils # (Auto) 0.0, Basophils # (Auto) 0.0, Immature Granulocyte # (Auto) 0.2, Sodium Level 136, Potassium Level 4.5, Chloride Level 108, Carbon Dioxide Level 21, Anion Gap 7, Blood Urea Nitrogen 11, Creatinine 0.77, Estimat Glomerular Filtration Rate 88, BUN/Creatinine Ratio 14, Glucose Level 125, Calcium Level 8.4, Corrected Calcium 9.1, Total Bilirubin 0.3, Aspartate Amino Transf (AST/SGOT) 15, Alanine Aminotransferase (ALT/SGPT) 13, Alkaline Phosphatase 98, Total Protein 5.5, Albumin 3.1 01/07/23 04:35: White Blood Count 4.9, Red Blood Count 3.25, Hemoglobin 9.8, Hematocrit 30, Mean Corpuscular Volume 91, Mean Corpuscular Hemoglobin 30, Mean Corpuscular Hemoglobin Concent 33, Red Cell Distribution Width 17.4, Platelet Count 214, Mean Platelet Volume 9.8, Immature Granulocyte % (Auto) 6, Neutrophils (%) (Auto) 60, Lymphocytes (%) (Auto) 16, Monocytes (%) (Auto) 14, Eosinophils (%) (Auto) 5, Basophils (%) (Auto) 0, Neutrophils # (Auto) 2.9, Lymphocytes # (Auto) 0.8, Monocytes # (Auto) 0.7, Eosinophils # (Auto) 0.2, Basophils # (Auto) 0.0, Immature Granulocyte # (Auto) 0.3, Sodium Level 138, Potassium Level 3.7, Chloride Level 108, Carbon Dioxide Level 23, Anion Gap 7, Blood Urea Nitrogen 14, Creatinine 0.81, Estimat Glomerular Filtration Rate 83, BUN/Creatinine Ratio 17, Glucose Level 89, Calcium Level 9.1, Corrected Calcium 9.7, Total Bilirubin 0.3, Aspartate Amino Transf (AST/SGOT) 17, Alanine Aminotransferase (ALT/SGPT) 13, Alkaline Phosphatase 102, Total Protein 5.5, Albumin 3.2 Discharge Home Medications: Active Scripts Active Ativan (Lorazepam) 0.5 Mg Tablet 0.5 Mg PO HS PRN Levofloxacin 750 Mg Tablet 750 Mg PO DAILY Sucralfate 1 Gram Tablet 1 Gm PO ACHS Pantoprazole Sodium 40 Mg Tablet.dr 40 Mg PO BID Senna Lax (Sennosides) 8.6 Mg Tablet 8.6 Mg PO BID Mirtazapine 15 Mg Tab.rapdis 15 Mg PO HS Morphine Sulfate ER (Morphine Sulfate) 15 Mg Tablet.er 15 Mg PO Q12HR bone cancer patient Fentanyl Patch 100 MCG (Fentanyl) 100 Mcg/Hour Patch.td72 100 Mcg TD Q72H bone cancer patient Oxycodone HCl 10 Mg Tablet 10 Mg PO Q6H PRN Reported Vitamin D3 (Cholecalciferol (Vitamin D3)) 25 Mcg (1000 Unit) Tablet 25 Mcg PO DAILY Stool Softener (Docusate Sodium) 100 Mg Tablet 100 Mg PO DAILY PRN Naloxone HCl 4 Mg/Actuation Bethany 1 Bethany NSEACH UD Nystatin 100,000 Unit/Ml Oral.susp 5 Ml PO QID PRN Ondansetron Odt (Ondansetron) 8 Mg Tab.rapdis 8 Mg PO Q6H PRN Cetirizine HCl 10 Mg Tablet 10 Mg PO DAILY Entresto 49 mg-51 mg Tablet (Sacubitril/Valsartan) 49 Mg-51 Mg Tablet 1 Tab PO BID Crestor (Rosuvastatin Calcium) 5 Mg Tablet 5 Mg PO DAILY Carvedilol 12.5 Mg Tablet 12.5 Mg PO BID Zinc (Zinc Sulfate) 50 Mg Zinc (220 Mg) Tablet 50 Mg PO DAILY Duloxetine HCl 60 Mg Capsule.dr 60 Mg PO DAILY Farxiga (Dapagliflozin Propanediol) 10 Mg Tablet 10 Mg PO DAILY Instructions to patient/family Please see electronic discharge instructions given to patient. EDUARDO HAND DO Jan 07, 2023 12:08
--- NOTE | 2023-01-07 12:43 | Occ Therapy Progress Note ---
Therapy Progress Note Patient plans for radiation treatment today and then DC from hospital to home, No OT intervention today JENNI UP OT Jan 07, 2023 12:43
[2023-01-07] MEDS ORDERED: FENTANYL PATCH REMOVAL TP SCH (12:59)
[2023-01-07] MEDS: fentaNYL PATCH 100 MCG (DURAGESIC) TD SCH (13:14)
[2023-01-07 13:40] VITALS: BP 109/77
== END 2023-01-07 13:40 | disposition home or self-care (01) | DRG 948 ==
LOC: OBSVTOIN 15:35 → 4TH 15:35
PROVIDERS: ADMIT Internal Medicine; ATTEND Internal Medicine
DX: G89.3 Neoplasm related pain (acute) (chronic) (principal); C79.51 Secondary malignant neoplasm of bone; I42.7 Cardiomyopathy due to drug and external agent; N39.0 Urinary tract infection, site not specified; B96.5 Pseudomonas (aeruginosa) (mallei) (pseudomallei) as the cause of diseases classified elsewhere; T45.1X5D Adverse effect of antineoplastic and immunosuppressive drugs, subsequent encounter; E78.5 Hyperlipidemia, unspecified; F41.9 Anxiety disorder, unspecified; F32.A Depression, unspecified; Z85.3 Personal history of malignant neoplasm of breast; Z96.641 Presence of right artificial hip joint; Z95.810 Presence of automatic (implantable) cardiac defibrillator; Z87.891 Personal history of nicotine dependence
CPT/HCPCS: 36415; 77417; 80053; 81000; 83605; 83735; 85007; 85025; 85027; 87077; 87088; 87184; 94760; G0378

== ENCOUNTER → 2023-01-03 | Outpatient (CLI) | payer BC ==
[~2023-01-03] MED LIST changes: +FENT1PAT11 TD; +LEVO750T PO; +LIDOCAINE 1% INJ 10 ML VIAL INJ ONE; +LORA-404 PO; +MIDAZOLAM 2 MG/2 ML (VERSED) VIAL IVP ONE; +MIRT-47 PO; +MORP-68 PO; +NS IV 1000 ML 1,000 ML IV STA; +PANT40TA52 PO; +SNN187T PO; +SUCR1TAB PO; +fentaNYL INJ 100 MCG/2 ML AMP IVP ONE
[2023-01-03 09:23] LABS: ABSOLUTE RETIC # 78 10e9/uL (24-90); BASOPHILS % (AUTO) 0 % (0-10); EOSINOPHILS % (AUTO) 0 % (0-10); HEMATOCRIT 40 % (35-52); HEMOGLOBIN 13.5 g/dL (11.5-16.0); LYMPHOCYTES # (AUTO) 0.4 10^3/uL (1.0-4.0); LYMPHOCYTES % (AUTO) 4 % (12-44); MEAN CORPUSCULAR HEMOGLOBIN 30 pg (25-34); MEAN CORPUSCULAR HGB CONC 33 g/dL (32-36); MEAN CORPUSCULAR VOLUME 88 fL (80-99); MEAN PLATELET VOLUME 9.7 fL (9.0-12.2); MONOCYTES # (AUTO) 1.2 10^3/uL (0.0-1.0); MONOCYTES % (AUTO) 11 % (0-12); NEUTROPHILS # (AUTO) 8.3 10^3/uL (1.8-7.8); NEUTROPHILS % (AUTO) 83 % (42-75); PLATELET COUNT 312 10^3/uL (130-400); RETICULOCYTE % 1.71 % (0.50-2.40); WHITE BLOOD COUNT 10.1 10^3/uL (4.3-11.0)
[2023-01-03 09:40] LABS: INR 1.2 (0.8-1.4); PROTHROMBIN TIME PATIENT 15.1 SEC (12.2-14.7)
[2023-01-03 09:45] LABS: ANISOCYTOSIS SLIGHT; BAND NEUTROPHILS 0 %; BASOPHILS % (MANUAL) 0 %; EOSINOPHILS % (MANUAL) 0 %; LYMPHOCYTES % (MANUAL) 2 %; MONOCYTES % (MANUAL) 14 %; NEUTROPHILS % (MANUAL) 84 %; POLYCHROMASIA SLIGHT
[2023-01-03 10:32] VITALS: BP 112/87
[2023-01-03 10:35] VITALS: BP 129/88
[2023-01-03 10:40] VITALS: BP 126/91
[2023-01-03 10:42] VITALS: BP 121/86
--- NOTE | 2023-01-03 11:43 | Diagnostic Imaging Report ---
INDICATION: Multiple liver lesions with abnormal PET scan, concerning for myeloma. PROCEDURE: The patient presents for a bone marrow aspiration and a bone biopsy utilizing CT guidance. The patient was brought to the CT suite and placed on the table in the prone position. Axial imaging through the pelvis was performed to evaluate appropriate entry site. The low back was prepped and draped in the usual sterile fashion. A small amount of 1% lidocaine was utilized for local anesthesia. The patient was given a total of 1 mg of Versed and 25 mcg of fentanyl intravenously. Total procedure time was approximately 10 minutes. A bone marrow needle was advanced and placed with its tip along the posterior cortex of the right iliac bone. Bone marrow drill was utilized to advance the needle beyond the cortex. Bone marrow aspirate was attempted however was dry. Therefore, the drill was utilized to obtain a bone marrow core biopsy. Next, the needle was repositioned and placed along the posterior cortex. Needle was advanced through the cortex into the marrow utilizing the drill. A 2nd bone marrow core sample was obtained. The needle was removed and hemostasis was obtained using manual compression. The patient tolerated the procedure well and left the department in stable condition. IMPRESSION: Successful CT-guided bone marrow biopsy, utilizing conscious sedation. Pathology results are currently pending. Dictated by: Dictated on workstation # [id number]
== END ==
LOC: SDC 07:56
PROVIDERS: ATTEND Internal Medicine Hematology & Oncology
DX: K76.9 Liver disease, unspecified (principal)
CPT/HCPCS: 36415; 38222; 77012; 85007; 85027; 85045; 85610; 85730

== ENCOUNTER 2023-01-10 09:01 | Outpatient (RCR) | payer BC ==
[~2023-01-10 09:01] MED LIST changes: +CARV12.53 PO; +CETI10TA17 PO; +CHOL-34 PO; +DAPA10TA PO; +DOCU100T7 PO; +DULO60CA59 PO; +EZET10TA49 PO; +FENT1PAT10 TD; +FENT1PAT11 TD; +FURO40TA4 PO; +LEVO750T PO; +LORA-404 PO; +MIRT-47 PO; +MORP-68 PO; +NALO4SPR3 NSEACH; +NYST1000 PO; +OMEP20TA56 PO; +ONDA8TAB13 PO; +OXYC10TA7 PO; +PANT40TA52 PO; +ROSU5TAB PO; +SACU1TAB7 PO; +SENN-341 PO; +SUCR1TAB PO; +TOFA10TA PO; +ZINC220T3 PO
[2023-01-13] MEDS ORDERED: MORP-68 PO (10:44)
[2023-01-13] MEDS ORDERED: GABA300C PO (10:45)
[2023-01-13] MEDS ORDERED: OXYC10TA7 PO (10:46)
[2023-01-13] MEDS ORDERED: SENN8.6T17 PO (10:50)
[2023-01-13] MEDS ORDERED: OMEP20CA18 PO (10:51)
[2023-01-13] MEDS ORDERED: EZET10TA17 PO (10:52)
[2023-01-13] MEDS ORDERED: FURO40TA4 PO (10:54)
[2023-01-17] MEDS ORDERED: PANT40TA52 PO (12:10)
[2023-01-17] MEDS ORDERED: MIRT-47 PO (12:10)
[2023-01-17] MEDS ORDERED: HYDR4TAB PO (12:10)
[2023-01-17] MEDS ORDERED: LORA-404 PO (12:10)
[2023-01-17] MEDS ORDERED: DEXA1TAB PO (12:10)
[2023-01-17] MEDS ORDERED: SUCR1TAB PO (12:10)
[2023-01-17] MEDS ORDERED: FENT1PAT10 TOP (12:10)
[2023-01-17] MEDS ORDERED: LACT1CAP7 PO (12:10)
== END 2023-01-27 | disposition home or self-care (01) ==
LOC: ONC 09:01
PROVIDERS: ATTEND Radiology Radiation Oncology
DX: Z51.0 Encounter for antineoplastic radiation therapy (principal); C80.1 Malignant (primary) neoplasm, unspecified; C79.51 Secondary malignant neoplasm of bone; I87.2 Venous insufficiency (chronic) (peripheral); Z85.3 Personal history of malignant neoplasm of breast
CPT/HCPCS: 77412; G0463; 77336

== ENCOUNTER 2023-03-31 08:17 | Inpatient (IN) | payer BC ==
[~2023-03-31] VITALS: Ht 177 cm; Wt 78.6 kg
[~2023-03-31 08:17] MED LIST changes: +DEXA1TAB PO; +EZET10TA83 PO; +FENT1PAT10 TOP; +GABA300C PO; +HYDR4TAB PO; +LACT1CAP7 PO; +OMEP20CA18 PO; +SENN8.6T17 PO
[2023-03-31] MEDS ORDERED: MIDAZOLAM INJ 5 MG/5 ML VIAL IJ ONE (08:19)
[2023-03-31] MEDS ORDERED: ETOMIDATE INJ SOLN 20 MG/10 ML VIAL IV ONE (08:19)
[2023-03-31] MEDS ORDERED: SUCCINYLCHOLINE INJ 20 MG/1 ML 10 ML VIAL INJ ONE (08:19)
[2023-03-31] MEDS ORDERED: fentaNYL INJECTION 100 MCG/2 ML VIAL IV ONE (08:19)
--- NOTE | 2023-03-31 09:22 | Diagnostic Imaging Report ---
INDICATION: Shortness of air. Time of exam 9:12 AM Correlation is made with prior chest 01/03/2023. Heart size is stable. Left chest wall port has tip overlying the SVC right atrial junction. There is a cardiac defibrillator in place. Patient has developed diffuse bilateral infiltrates. There are surgical clips left axilla. No significant effusion or pneumothorax is identified. IMPRESSION: Development of diffuse bilateral pulmonary infiltrates suggestive of either pneumonia or pulmonary edema. Dictated by: Dictated on workstation # [id number]
[2023-03-31 09:23] LABS: BASOPHILS # (AUTO) 0.1 10^3/uL (0.0-0.1); BASOPHILS % (AUTO) 1 % (0-10); EOSINOPHILS % (AUTO) 0 % (0-10); HEMATOCRIT 29 % (35-52); HEMOGLOBIN 9.1 g/dL (11.5-16.0); LYMPHOCYTES # (AUTO) 0.5 10^3/uL (1.0-4.0); LYMPHOCYTES % (AUTO) 9 % (12-44); MEAN CORPUSCULAR HEMOGLOBIN 29 pg (25-34); MEAN CORPUSCULAR HGB CONC 31 g/dL (32-36); MEAN CORPUSCULAR VOLUME 92 fL (80-99); MEAN PLATELET VOLUME 10.6 fL (9.0-12.2); MONOCYTES # (AUTO) 0.3 10^3/uL (0.0-1.0); MONOCYTES % (AUTO) 6 % (0-12); NEUTROPHILS % (AUTO) 69 % (42-75); PLATELET COUNT 331 10^3/uL (130-400); WHITE BLOOD COUNT 5.7 10^3/uL (4.3-11.0)
[2023-03-31 09:34] LABS: INR 1.2 (0.8-1.4); PROTHROMBIN TIME PATIENT 15.2 SEC (12.2-14.7)
[2023-03-31 09:36] LABS: ALBUMIN 3.3 GM/DL (3.2-4.5); POTASSIUM 3.7 MMOL/L (3.6-5.0)
[2023-03-31 09:38] LABS: CALCIUM 8.5 MG/DL (8.5-10.1)
[2023-03-31 09:39] LABS: TOTAL PROTEIN 6.2 GM/DL (6.4-8.2)
[2023-03-31 09:41] LABS: BILIRUBIN,TOTAL 0.6 MG/DL (0.1-1.0)
[2023-03-31 09:43] LABS: CREATININE SERUM 0.64 MG/DL (0.60-1.30)
[2023-03-31 09:45] LABS: MAGNESIUM 1.2 MG/DL (1.6-2.4)
[2023-03-31 09:59] LABS: BAND NEUTROPHILS 14 %; EOSINOPHILS % (MANUAL) 1 %; LYMPHOCYTES % (MANUAL) 10 %; MONOCYTES % (MANUAL) 5 %; NEUTROPHILS % (MANUAL) 62 %
[2023-03-31 10:00] LABS: ANISOCYTOSIS MODERATE; BURR CELLS SLIGHT; ELLIPT/OVALOCYTES SLIGHT; HYPOCHROMASIA SLIGHT; METAMYELOCYTES % 5 %; MICROCYTOSIS SLIGHT; MYELOCYTES % 3 %; NUCLEATED RED BLOOD CELLS 1; POLYCHROMASIA SLIGHT
--- NOTE | 2023-03-31 10:13 | ED General ---
General Chief Complaint: Respiratory Problems Stated Complaint: SOA Nursing Triage Note: PT ARRIVED PER EMS, PT CO OF SOA STARTED THIS AM UPON AWAKENING, PT HAS HX OF BREAST CO AND IS CURRENTLY UNDER TAKING CHEMO. PT STATES HAS ALOT OF SWELLING IN L ARM AND LOWER EXT. PT IS ON 6L OF O2 FOR EMS. PT CONT TO FEEL SOA, PT SWITCH TO OXYMASK AT 10L PT IS TRIPOD POSTION. PT DENIES FEVERS, DENIES PAIN AT THIS X. PT IS WEARING 2 FENT PATCH ON ABD, 75MCG EACH. Source of Information: Patient, EMS Exam Limitations: No Limitations History of Present Illness Date Seen by Provider: Mar 31, 2023 Time Seen by Provider: 08:20 Initial Comments Here with report acute onset of shortness of air this morning. Here by EMS. EMS reports clear breath sounds in the O2 saturations but tachypnea. Patient was unable to lie flat patient agrees with all of this. She reports that she does have breast cancer that is returned from previous breast cancer when she was clear for quite a while she follows with Dr. Cortes. Her last chemotherapy was last week. He does complain of swelling to her left arm which is chronic and bilateral lower extremities. She is on O2 via nasal cannula and satting 99 to 100%. She is tachycardic for EMS. Patient does take Dilaudid for pain and has to 75 mcg fentanyl patches on. She states her pain is controlled. Denies recent fever or chills. Denies nausea or vomiting. Her main concern is that she did well and that she can only breathe while sitting up. Her primary care physician is Dr. GOMEZ. Timing/Duration: 1-3 Hours Severity: Moderate, Severe Associated Systoms: No Chest Pain, No Cough, No Fever/Chills, No Nausea/ Vomiting; Shortness of Air, Weakness Allergies and Home Medications Allergies Coded Allergies: No Known Drug Allergies (Unverified , 01/27/22) Patient Home Medication List Home Medication List Reviewed: Yes Carvedilol (Carvedilol) 12.5 Mg Tablet, 12.5 MG PO BID, (Reported) Entered as Reported by: ANDREAS MICHELLE on 01/04/23 1300 Cetirizine HCl (Cetirizine HCl) 10 Mg Tablet, 10 MG PO DAILY, (Reported) Entered as Reported by: ANDREAS MICHELLE on 01/04/23 1300 Cholecalciferol (Vitamin D3) (Vitamin D3) 25 Mcg (1000 Unit) Tablet, 25 MCG PO DAILY, (Reported) Entered as Reported by: INOCENCIA TREVINO on 01/06/23 0829 Dapagliflozin Propanediol (Farxiga) 10 Mg Tablet, 10 MG PO HS, (Reported) Entered as Reported by: ANDREAS MCIHELLE on 01/04/23 1300 Dexamethasone (Dexamethasone) 1 Mg Tablet, 1 MG PO BID Prescribed by: EDUARDO HAND on 01/17/23 1210 Duloxetine HCl (Duloxetine HCl) 60 Mg Capsule.dr, 60 MG PO DAILY, (Reported) Entered as Reported by: ANDREAS MICHELLE on 01/04/23 1300 Ezetimibe (Zetia) 10 Mg Tablet, 10 MG PO DAILY, (Reported) Entered as Reported by: INOCENCIA TREVINO on 01/13/23 1052 Fentanyl (Fentanyl Patch 75MCG) 75 Mcg/Hour Patch.td72, 150 MCG TOP Q72H Prescribed by: EDUARDO HAND on 01/17/23 1211 Furosemide (Furosemide) 40 Mg Tablet, 40 MG PO BID PRN for WATER RETENTION, (Reported) Entered as Reported by: INOCENCIA TREVINO on 01/13/23 1054 Gabapentin (Neurontin) 300 Mg Capsule, 300 MG PO HS, (Reported) Entered as Reported by: INOCENCIA TREVINO on 01/13/23 1045 Hydromorphone HCl (Hydromorphone HCl) 4 Mg Tablet, 4 MG PO Q4H PRN for PAIN- SEVERE (8-10) Prescribed by: EDUARDO HAND on 01/17/23 1211 Lactobacillus Acidophilus/Pect (Acidophilus-Pectin Capsule) 75 Million Cell-100 Mg Capsule, 2 EACH PO TIDWM Prescribed by: EDUARDO HAND on 01/17/23 1210 Lorazepam (Ativan) 0.5 Mg Tablet, 0.5 MG PO HS PRN for ANXIETY Prescribed by: EDUARDO HAND on 01/17/23 1211 Mirtazapine (Mirtazapine) 15 Mg Tab.rapdis, 15 MG PO HS Prescribed by: EDUARDO HAND on 01/17/23 1210 Naloxone HCl (Naloxone HCl) 4 Mg/Actuation [place], 1 SPRAY NSEACH UD, (Reported) Entered as Reported by: INOCENCIA TREVINO on 01/06/23 0829 Nystatin (Nystatin) 100,000 Unit/Ml Oral.susp, 5 ML PO QID PRN for Throat Irrit ation, (Reported) Entered as Reported by: INOCENCIA TREVINO on 01/06/23 0829 Ondansetron (Ondansetron Odt) 8 Mg Tab.rapdis, 8 MG PO Q6H PRN for NAUSEA/VOMITING, (Reported) Entered as Reported by: INOCENCIA TREVINO on 01/06/23 0829 Pantoprazole Sodium (Pantoprazole Sodium) 40 Mg Tablet.dr, 40 MG PO BID Prescribed by: EDUARDO HAND on 01/17/23 1210 Rosuvastatin Calcium (Crestor) 5 Mg Tablet, 5 MG PO DAILY, (Reported) Entered as Reported by: ANDREAS MICHELLE on 01/04/23 1300 Sacubitril/Valsartan (Entresto 49 mg-51 mg Tablet) 49 Mg-51 Mg Tablet, 1 TAB PO BID, (Reported) Entered as Reported by: ANDREAS MICHELLE on 01/04/23 1300 Sennosides (Senna Laxative) 8.6 Mg Tablet, 1 EA PO BID PRN for CONSTIPATION-5TH LINE, (Reported) Entered as Reported by: INOCENCIA TREVINO on 01/13/23 1050 Sucralfate (Sucralfate) 1 Gram Tablet, 1 GM PO ACHS Prescribed by: EDUARDO HAND on 01/17/23 1210 Zinc Sulfate (Zinc) 50 Mg Zinc (220 Mg) Tablet, 50 MG PO DAILY, (Reported) Entered as Reported by: ANDREAS MICHELLE on 01/04/23 1300 Review of Systems Review of Systems Constitutional: see HPI; No chills, No fever; weakness EENTM: No nose congestion, No throat pain Respiratory: cough, short of breath; No wheezing Cardiovascular: No chest pain, No palpitations Gastrointestinal: No nausea, No vomiting Genitourinary: no symptoms reported Musculoskeletal: No back pain, No muscle pain Skin: no symptoms reported Past Lmtbxlx-Jhrpmg-Dgidje Hx Patient Social History Tobacco Use?: No Substance use?: No Alcohol Use?: No Pt feels they are or have been: No Seasonal Allergies Seasonal Allergies: No Past Medical History Surgery/Hospitalization HX: BREAST CA Surgeries: No Orthopedic Respiratory: Yes Currently Using CPAP: No Currently Using BIPAP: No Cardiac: No Neurological: No Genitourinary: No Gastrointestinal: No Musculoskeletal: No Endocrine: No HEENT: No Cancer: Yes Breast Did You Recieve Any Treatments: No Psychosocial: No Integumentary: No Blood Disorders: No Adverse Reaction/Blood Tranf: No Family Medical History Reviewed Nursing Family Hx No Pertinent Family Hx Physical Exam-Suspected Sepsis Physical Exam Vital Signs Vital Signs - First Documented 03/31/23 03/31/23 08:20 09:08 Temp 36.2 Pulse 125 Resp 25 B/P (MAP) 130/96 (107) Pulse Ox 100 O2 Delivery Nasal Cannula O2 Flow Rate 10.00 FiO2 50 Capillary Refill : Less Than 3 Seconds Blood Pressure Mean: 107 Height, Weight, BMI Height: '" Weight: lbs. oz. kg; 21.00 BMI Method: General Appearance: Chronically ill, Moderate Distress HEENT: PERRL/EOMI, Pharynx Normal Neck: Non Tender, Supple Respiratory: Lungs Clear, Normal Breath Sounds Cardiovascular: No Murmur, Tachycardia Back: Normal Inspection, No CVA Tenderness, No Vertebral Tenderness Extremity: Non Tender, Pedal Edema (2+ up to mid tibia bilateral), Swelling (Chronic edema left arm) Neurologic/Psychiatric: Alert, Oriented x3 Skin: normal color, warm/dry Focused Exam Lactate Level 03/31/23 08:30: Lactic Acid Level 2.02*H 03/31/23 10:35: Lactic Acid Level 1.75 Lactic Acid Level Procedures/Interventions Lumen: triple Central Line Procedure: betadine prep, sterile drapes applied, sterile dressing applied Position: internal jugular (R) Anesthesia: Lidocaine Volume Anesthetic (ccs): 5 Complications: none Post Position: sutured, good blood return, position confirmed w/ CXR 1930: After admission, went to ICU and placed central line on this patient for worsening hypotension and the need for further access for pressor support and medications as well as blood draws. Consent signed and on chart and given by . Patient was on light sedation and we did prepped and draped in sterile fashion and anesthetized with 1% lidocaine 5 mL. Line placed via ultrasound guidance to the right IJ x1 stick without difficulty. Line placed via Seldinger technique. Sutured in place. Good flush and return. Tolerated procedure well with no complications. Chest x-ray reviewed and confirms placement without pneumothorax. Date of ETT Placement: Mar 31, 2023 Time of ETT Placement: 12:31 Intubation Method: orotracheal Medications: Etomidate, Fentanyl, Propofol, Succinylcholine, Versed Breath Sounds after Intubation: bilateral-equal Intubation Complications: no complications Post Intubation Xray: Yes ET tube and orogastric tube in good position Tolerated procedure well with no complications Progress/Results/Core Measures Suspected Sepsis SIRS Temperature: Pulse: 125 Respiratory Rate: 25 Laboratory Tests 03/31/23 08:30: White Blood Count 5.7 Blood Pressure 130 /96 Mean: 107 03/31/23 08:30: Lactic Acid Level 2.02*H 03/31/23 10:35: Lactic Acid Level 1.75 Laboratory Tests 03/31/23 08:30: Creatinine 0.64, INR Comment 1.2, Platelet Count 331, Total Bilirubin 0.6 Results/Orders Lab Results Laboratory Tests Test 03/31/23 08:24 03/31/23 08:30 03/31/23 10:35 03/31/23 11:12 Range/Units Influenza Type A (RT-PCR) Not Detected Not Detecte Influenza Type B (RT-PCR) Not Detected Not Detecte SARS-CoV-2 RNA (RT-PCR) Not Detected Not Detecte White Blood Count 5.7 4.3-11.0 10^3/uL Red Blood Count 3.18 L 3.80-5.11 10^6/uL Hemoglobin 9.1 L 11.5-16.0 g/dL Hematocrit 29 L 35-52 % Mean Corpuscular Volume 92 80-99 fL Mean Corpuscular Hemoglobin 29 25-34 pg Mean Corpuscular Hemoglobin Concent 31 L 32-36 g/dL Red Cell Distribution Width 22.1 H 10.0-14.5 % Platelet Count 331 130-400 10^3/uL Mean Platelet Volume 10.6 9.0-12.2 fL Immature Granulocyte % (Auto) 15 % Neutrophils (%) (Auto) 69 42-75 % Lymphocytes (%) (Auto) 9 L 12-44 % Monocytes (%) (Auto) 6 0-12 % Eosinophils (%) (Auto) 0 0-10 % Basophils (%) (Auto) 1 0-10 % Neutrophils # (Auto) 4.0 1.8-7.8 10^3/uL Lymphocytes # (Auto) 0.5 L 1.0-4.0 10^3/uL Monocytes # (Auto) 0.3 0.0-1.0 10^3/uL Eosinophils # (Auto) 0.0 0.0-0.3 10^3/uL Basophils # (Auto) 0.1 0.0-0.1 10^3/uL Immature Granulocyte # (Auto) 0.9 H 0.0-0.1 10^3/uL Neutrophils % (Manual) 62 % Lymphocytes % (Manual) 10 % Monocytes % (Manual) 5 % Eosinophils % (Manual) 1 % Metamyelocytes % 5 % Myelocytes % 3 % Band Neutrophils 14 % Nucleated Red Blood Cells 1 Polychromasia SLIGHT Hypochromasia SLIGHT Anisocytosis MODERATE Microcytosis SLIGHT Macrocytosis SLIGHT [place]idian Cells SLIGHT Elliptocytes SLIGHT Prothrombin Time 15.2 H 12.2-14.7 SEC INR Comment 1.2 0.8-1.4 Activated Partial Thromboplast Time 35 24-35 SEC Sodium Level 137 135-145 MMOL/L Potassium Level 3.7 3.6-5.0 MMOL/L Chloride Level 102 98-107 MMOL/L Carbon Dioxide Level 19 L 21-32 MMOL/L Anion Gap 16 H 5-14 MMOL/L Blood Urea Nitrogen 9 7-18 MG/DL Creatinine 0.64 0.60-1.30 MG/DL Estimat Glomerular Filtration Rate 100 BUN/Creatinine Ratio 14 Glucose Level 162 H 70-105 MG/DL Lactic Acid Level 2.02 *H 1.75 0.50-2.00 MMOL/L Calcium Level 8.5 8.5-10.1 MG/DL Corrected Calcium 9.1 8.5-10.1 MG/DL Magnesium Level 1.2 L 1.6-2.4 MG/DL Total Bilirubin 0.6 0.1-1.0 MG/DL Aspartate Amino Transf (AST/SGOT) 13 5-34 U/L Alanine Aminotransferase (ALT/SGPT) 7 0-55 U/L Alkaline Phosphatase 174 H 40-136 U/L Troponin I 0.075 H <0.028 NG/ML C-Reactive Protein High Sensitivity 16.59 H 0.00-0.50 MG/DL B-Type Natriuretic Peptide 3418.9 H <100.0 PG/ML Total Protein 6.2 L 6.4-8.2 GM/DL Albumin 3.3 3.2-4.5 GM/DL Triglycerides Level 146 <150 MG/DL Blood Gas Puncture Site RIGHT RADIAL Blood Gas Patient Temperature 35.9 Arterial Blood pH 7.42 7.37-7.43 Arterial Blood Partial Pressure CO2 29 L 35-45 MMHG Arterial Blood Partial Pressure O2 84 79-93 MMHG Arterial Blood HCO3 19 L 23-27 MMOL/L Arterial Blood Total CO2 19.4 L 21.0-31.0 MMOL/L Arterial Blood Oxygen Saturation 97 94-100 % Arterial Blood Base Excess -5.4 L -2.5-2.5 MMOL/L Ismael Test YES-POS Blood Gas Ventilator Setting NO Blood Gas Inspired Oxygen 30% BIPAP Test 03/31/23 11:40 03/31/23 14:46 03/31/23 17:32 Range/Units Urine Color YELLOW Urine Clarity CLEAR Urine pH 5.5 5-9 Urine Specific [place] >=1.030 1.016-1.022 Urine Protein 3+ H NEGATIVE Urine Glucose (UA) 1+ H NEGATIVE Urine Ketones 2+ H NEGATIVE Urine Nitrite NEGATIVE NEGATIVE Urine Bilirubin 2+ H NEGATIVE Urine Urobilinogen 0.2 < = 1.0 MG/DL Urine Leukocyte Esterase NEGATIVE NEGATIVE Urine RBC (Auto) NEGATIVE NEGATIVE Urine RBC NONE /HPF Urine WBC 0-2 /HPF Urine Crystals NONE /LPF Urine Bacteria TRACE /HPF Urine Casts NONE /LPF Urine Mucus SMALL H /LPF Urine Culture Indicated NO Blood Gas Puncture Site RIGHT RAD Blood Gas Patient Temperature 36.5 Arterial Blood pH 7.40 7.37-7.43 Arterial Blood Partial Pressure CO2 32 L 35-45 MMHG Arterial Blood Partial Pressure O2 102 H 79-93 MMHG Arterial Blood HCO3 20 L 23-27 MMOL/L Arterial Blood Total CO2 20.6 L 21.0-31.0 MMOL/L Arterial Blood Oxygen Saturation 98 94-100 % Arterial Blood Base Excess -4.5 L -2.5-2.5 MMOL/L Ismael Test YES-POS Blood Gas Ventilator Setting YES Blood Gas Inspired Oxygen 40 Glucometer 133 H 70-110 MG/DL My Orders Orders - GI MANUEL MD Cbc And Automated Diff (03/31/23 08:31) Comprehensive Metabolic Panel (03/31/23 08:31) Blood Culture (03/31/23 08:31) Sputum Culture (03/31/23 08:31) Urinalysis (03/31/23 08:31) Urine Culture (03/31/23 08:31) Protime With Inr (03/31/23 08:31) Partial Thromboplastin Time (03/31/23 08:31) Chest 1 View, Ap/Pa Only (03/31/23 08:31) Ed Iv/Invasive Line Start (03/31/23 08:31) Ed Iv/Invasive Line Start (03/31/23 08:31) Ekg Tracing (03/31/23 08:31) Troponin I Edna (03/31/23 08:31) Vital Signs Adult Sepsis Patie Q15M (03/31/23 08:31) O2 (03/31/23 08:31) Remove Rings In Anticipation O (03/31/23 08:31) Lactic Acid Analyzer (03/31/23 08:31) Influenza A And B By Pcr (03/31/23 08:31) Bnp [place] (03/31/23 08:31) Hs C Reactive Protein (03/31/23 08:31) Magnesium (03/31/23 08:31) Covid 19 Inhouse Test (03/31/23 08:31) Manual Differential (03/31/23 08:30) Furosemide Injection (Furosemide Injec (03/31/23 10:40) Ct Angio Chest W (R/O Pe) (03/31/23 10:42) Enoxaparin Injection (Enoxaparin Injecti (03/31/23 10:45) Aspirin Chewable Tablet (Aspirin Chewabl (03/31/23 10:45) Cefepime Injection (Cefepime Injection) (03/31/23 11:00) Iohexol Injection (Omnipaque 350 Mg/Ml 1 (03/31/23 11:00) Received Contrast (Hold Metformin- Contr (03/31/23 11:00) Ns (Ivpb) 100 Ml (Sodium Chloride 0.9% 1 (03/31/23 11:00) Vancomycin Injection (Vancomycin Injecti (03/31/23 11:00) Arterial Blood Gas (03/31/23 11:02) Arterial Blood Draw - Obtain (03/31/23 11:12) Ns Iv 1000 Ml (Ns Iv 1000 Ml) (03/31/23 12:37) Propofol Drip (Icu) (Propofol Drip (Icu) (03/31/23 12:45) Sedation Communication Q48H (03/31/23 12:37) Triglycerides (03/31/23 12:37) Triglycerides (04/02/23 12:37) Triglycerides (04/04/23 12:37) Chest 1 View, Ap/Pa Only (03/31/23 12:37) Code/Resuscitation (03/31/23 13:50) Ed Admission (Communication) (03/31/23 13:50) Etomidate Injection (Etomidate Injection (03/31/23 08:19) Fentanyl Injection (Fentanyl Injection (03/31/23 08:19) Midazolam Injection (Midazolam Injection (03/31/23 08:19) Succinylcholine Injection (Succinylcholi (03/31/23 08:19) Fentanyl Injection (Fentanyl Injection (03/31/23 19:15) Chest 1 View, Ap/Pa Only (03/31/23 19:24) Medications Given in ED Current Medications Medications Dose Ordered Sig/Marcella Route Start Time Stop Time Status Last Admin Dose Admin Aspirin 324 mg ONCE ONCE PO 03/31/23 10:45 03/31/23 10:46 DC 03/31/23 11:19 324 MG Cefepime HCl 1000 mg/Sodium Chloride 50 ml @ 100 mls/hr ONCE ONCE IV 03/31/23 11:00 03/31/23 11:29 DC 03/31/23 11:22 100 MLS/HR Enoxaparin Sodium 70 mg ONCE ONCE SC 03/31/23 10:45 03/31/23 10:46 DC 03/31/23 11:23 70 MG Vancomycin HCl 750 mg/Sodium Chloride 100 ml @ 100 mls/hr ONCE ONCE IV 03/31/23 11:00 03/31/23 11:59 DC 03/31/23 11:49 100 MLS/HR Vital Signs/I&O 03/31/23 03/31/23 03/31/23 03/31/23 08:20 08:20 09:08 10:53 Temp 36.2 Pulse 125 114 Resp 25 20 B/P (MAP) 130/96 (107) Pulse Ox 100 100 99 99 O2 Delivery Nasal Cannula OxyMask Vapotherm O2 Flow Rate 10.00 10.00 40.00 30.00 FiO2 50 10/2/23 10/2/23 10/2/23 10/2/23 12:30 12:54 13:51 13:51 Temp 36.5 Pulse 125 114 93 Resp 16 B/P (MAP) 130/98 102/79 Pulse Ox 99 FiO2 40 03/31/23 03/31/23 03/31/23 03/31/23 13:51 14:13 14:17 14:20 Pulse 94 93 93 Resp 16 B/P (MAP) 102/79 102/79 (87) Pulse Ox 100 89 O2 Delivery Mechanical Ventilator Mechanical Ventilator O2 Flow Rate 40.00 FiO2 40 03/31/23 03/31/23 03/31/23 03/31/23 14:28 15:04 15:06 15:57 Temp 36.5 Pulse 97 89 97 86 Resp 16 B/P (MAP) 102/79 96/67 (77) 92/63 Pulse Ox 100 94 O2 Delivery Mechanical Ventilator O2 Flow Rate 40.00 FiO2 40 03/31/23 03/31/23 03/31/23 03/31/23 15:57 16:00 16:00 16:17 Temp 36.0 Pulse 86 86 Resp 15 B/P (MAP) 92/63 79/57 (64) Pulse Ox 100 100 O2 Delivery Mechanical Ventilator Mechanical Ventilator O2 Flow Rate 40.00 FiO2 40 03/31/23 03/31/23 03/31/23 03/31/23 16:27 16:38 17:01 17:04 Pulse 86 85 85 B/P (MAP) 79/57 77/54 77/54 80/49 03/31/23 03/31/23 03/31/23 03/31/23 17:11 17:11 17:25 17:42 Pulse 91 91 93 95 B/P (MAP) 77/53 77/53 81/54 59/47 03/31/23 03/31/23 03/31/23 03/31/23 17:56 17:56 17:56 17:56 Pulse 94 94 94 94 B/P (MAP) 51/39 51/39 51/39 51/39 03/31/23 03/31/23 03/31/23 03/31/23 17:56 17:56 17:56 17:56 Pulse 94 94 94 94 B/P (MAP) 51/39 51/39 51/39 51/39 03/31/23 03/31/23 03/31/23 03/31/23 17:56 17:58 18:00 18:00 Pulse 94 103 103 103 Resp 17 B/P (MAP) 51/39 51/39 51/39 114/29 (57) Pulse Ox 99 O2 Delivery Mechanical Ventilator O2 Flow Rate 40.00 03/31/23 03/31/23 18:18 18:18 Pulse 103 103 B/P (MAP) 88/53 88/53 Capillary Refill : Less Than 3 Seconds Blood Pressure Mean: 107 Progress Note : Progress Note Seen and evaluated. IV via port access which is a PowerPort. Labs including CBC, CMP, CRP, troponin, magnesium, BNP, blood cultures, lactic acid, UA ordered. Check COVID and influenza. Chest x-ray and EKG ordered. Concerns for heart failure so we will hold at this point. Patient is quite tachypneic so we will initiate Vapotherm and see how she does on that. Monitor patient. Differential diagnosis includes heart failure, pneumonia, pulmonary embolism, electrolyte abnormality, sequela of lung cancer, chemotherapy effect 1040: Chest x-ray shows bilateral pulmonary edema with question of infiltrates bilateral. Patient remains tachypneic despite high flow oxygen. She did not tolerate Vapotherm and she is on high flow oxygen via nasal cannula. Labs reviewed and COVID and influenza are negative. Coags show slight elevation in PT but otherwise normal. CBC shows normal white count 5.7 with hemoglobin of 9.1. She does have left shift with 14 bands. CMP reviewed and shows normal electrolytes and normal creatinine with slightly elevated blood glucose. Magnesium is low at 1.2. Troponin is slightly bumped at 0.075 with BNP of 3418 and CRP elevated at 16.59. Lactic acid is elevated at 2.02. Lasix 40 mg IV ordered for findings of heart failure. We will try BiPAP see if that helps. I did discuss the case with Dr. Galarza and reviewed all current findings and he agrees with the Lasix and will see the patient in the ER and accepts patient in consult. Patient seems to be decompensating some. Patient to be admitted to the ICU. I did discuss the case with Dr. Hand at 1043: She accepts patient for admission to the ICU. I did order but we will hold CT angiogram of the chest as she has not been available to lay down. We have initiated Lovenox 70 mg subcu x1 now and we will continue that twice daily for concerns for possible pulmonary embolism. She has had decompensation with chemotherapy previously and that includes heart failure problems. We will initiate cefepime 1 g IV now as well as vancomycin weight-based dosing now and patient will go to the ICU. We will trial BiPAP and see if she tolerates as she may require intubation. 1120: I have ordered ABG and we will see how she is doing on BiPAP with consideration for intubation if needed. Patient to be admitted to the ICU. 1300: Patient has been intubated successfully and is on vent at rate of 16 with tidal volume 450 and PEEP of 8 with FiO2 to be adjusted to keep O2 sats greater than 92%. Postintubation chest x-ray does show increasing vascular congestion on my interpretation. ET tube in OG tube are in good position. Patient to go to ICU. Patient is on propofol drip and will be titrated to sedation. Postintubation sedation with Versed 5 mg IV and fentanyl 100 mcg IV. I have initiated normal saline at 250 mL an hour now that she is intubated and we can control pulmonary vascular congestion. Remainder orders to be done through eICU. Report called to eICU. ECG Initial ECG Impression Date: Mar 31, 2023 Initial ECG Impression Time: 08:49 Initial ECG Rate: 114 Initial ECG Rhythm: S.Tach Comment Tachycardia with occasional PVCs and normal axis. No evidence of ST elevation [place]. Discussed with cardiology. Interpreted by me. Diagnostic Imaging Diagonstic Imaging: Xray Plain Films/CT/US/NM/MRI: chest Comments [facility] [place], [place] NAME: MARIIA ARGUETA [facility] REC#: [id number] PT STATUS: REG ER : 1960 PHYSICIAN: GI MANUEL MD ADMIT DATE: 03/31/23/ER Draft Date of Exam:03/31/23 CHEST 1 VIEW, AP/PA ONLY INDICATION: Shortness of air. Time of exam 9:12 AM Correlation is made with prior chest 01/03/2023. Heart size is stable. Left chest wall port has tip overlying the SVC right atrial junction. There is a cardiac defibrillator in place. Patient has developed diffuse bilateral infiltrates. There are surgical clips left axilla. No significant effusion or pneumothorax is identified. IMPRESSION: Development of diffuse bilateral pulmonary infiltrates suggestive of either pneumonia or pulmonary edema. Dictated on workstation # [id number] Dict: 03/31/23917 Trans: 03/31/23921 [id number] Interpreted by: GENESIS CINTRON MD Electronically signed by: Critical Care Note Critical Care Start Time: 08:20 Stop Time: 11:30 Total Time (minutes) 40 minutes excluding separately billable procedures but includes evaluation and management of life-threatening event. See progress note for details. Departure Impression Primary Impression: Acute heart failure Qualified Codes: I50.9 - Heart failure, unspecified Additional Impressions: Acute respiratory failure Qualified Codes: J96.00 - Acute respiratory failure, unspecified whether with hypoxia or hypercapnia Bilateral pneumonia Qualified Codes: J18.9 - Pneumonia, unspecified organism Breast cancer Qualified Codes: C50.912 - Malignant neoplasm of unspecified site of left female breast Sepsis Qualified Codes: A41.9 - Sepsis, unspecified organism; R65.20 - Severe sepsis without septic shock; J96.00 - Acute respiratory failure, unspecified whether with hypoxia or hypercapnia Disposition: ADMITTED INPATIENT Condition: Critical Admissions Decision to Admit Reason: Admit from ER (General) Departure-Patient Inst. Referrals: LORENZO GOMEZ MD (PCP/Family) Primary Care Physician GI MANUEL MD Mar 31, 2023 10:13
[2023-03-31] MEDS ORDERED: FUROSEMIDE INJECTION 40 MG/4 ML VIAL IV STA (10:40)
[2023-03-31] MEDS ORDERED: ENOXAPARIN 80 MG/0.8 ML SYRINGE SC ONE (10:45)
[2023-03-31] MEDS ORDERED: ASPIRIN 81 MG CHEWABLE TABLET PO ONE (10:45)
[2023-03-31] MEDS ORDERED: VANCOMYCIN INJECTION 750 MG in NS (IVPB) 100 ML 100 ML IV ONE (11:00)
[2023-03-31] MEDS ORDERED: IOHEXOL 350 MG/ML 100 ML (OMNIPAQUE 350) VIAL IV ONE ×2 (11:00→23:00)
[2023-03-31] MEDS ORDERED: CEFEPIME INJECTION 1,000 MG in NS (IVPB) 50 ML 50 ML IV ONE (11:00)
[2023-03-31] MEDS ORDERED: HOLD METFORMIN - RECEIVED CONTRAST 20 ML VIAL IV SCH ×2 (11:00→23:00)
[2023-03-31] MEDS ORDERED: NS 100 ML (IVPB) BAG IV ONE ×2 (11:00→23:00)
--- NOTE | 2023-03-31 11:10 | Consultation-Cardiology ---
HPI-Cardiology Cardiology Consultation Date of Consultation 03/31/23 Date of Admission Time Seen by Provider: 11:05 Indication: CHF, respiratory failure HPI Patient is a 63 y/o female with history of breast CA, currently undergoing chemotherapy, CHF, nonobstructive CAD. Presented to the ER with complaints of acute onset dyspnea. Upon interviewing patient, she is in acute respiratory failure and HPI is obtained from who is at bedside. Reports increased peripheral edema over the last week. Denies any chest pain, F/C/NS. Home Medications & Allergies Allergies: Coded Allergies: No Known Drug Allergies (Unverified , 01/27/22) Home Medication List Reviewed: Yes FIE-Khigyz-Gqltza Hx Patient Social History Marital Status: Smoking Status: Never a Smoker 2nd Hand Smoke Exposure: No Recent Hopitalizations: No Alcohol Use?: No Past Medical History Discussed below Family Medical History Significant Family History: No Pertinent Family Hx Review of Systems-General Review of Systems Constitutional: see HPI; No chills, No fever; malaise, weakness EENTM: see HPI; No nose congestion, No throat pain Respiratory: cough, orthopnea, short of breath; No wheezing Cardiovascular: No chest pain, No palpitations Gastrointestinal: No abdominal pain, No constipation, No nausea, No vomiting Genitourinary: no symptoms reported Musculoskeletal: No back pain, No muscle pain Skin: no symptoms reported Reviewed Test Results Reviewed Test Results Lab Laboratory Tests 03/31/23 08:24: Influenza Type A (RT-PCR) Not Detected, Influenza Type B (RT-PCR) Not Detected, SARS-CoV-2 RNA (RT-PCR) Not Detected 03/31/23 08:30: White Blood Count 5.7, Red Blood Count 3.18L, Hemoglobin 9.1L, Hematocrit 29L, Mean Corpuscular Volume 92, Mean Corpuscular Hemoglobin 29, Mean Corpuscular Hemoglobin Concent 31L, Red Cell Distribution Width 22.1H, Platelet Count 331, Mean Platelet Volume 10.6, Immature Granulocyte % (Auto) 15, Neutrophils (%) (Auto) 69, Lymphocytes (%) (Auto) 9L, Monocytes (%) (Auto) 6, Eosinophils (%) (Auto) 0, Basophils (%) (Auto) 1, Neutrophils # (Auto) 4.0, Lymphocytes # (Auto) 0.5L, Monocytes # (Auto) 0.3, Eosinophils # (Auto) 0.0, Basophils # (Auto) 0.1, Immature Granulocyte # (Auto) 0.9H, Neutrophils % (Manual) 62, Lymphocytes % (Manual) 10, Monocytes % (Manual) 5, Eosinophils % (Manual) 1, Metamyelocytes % 5, Myelocytes % 3, Band Neutrophils 14, Nucleated Red Blood Cells 1, Polychromasia SLIGHT, Hypochromasia SLIGHT, Anisocytosis MODERATE, Microcytosis SLIGHT, Macrocytosis SLIGHT, Roberth Cells SLIGHT, Elliptocytes SLIGHT, Prothrombin Time 15.2H, INR Comment 1.2, Activated Partial Thromboplast Time 35, Sodium Level 137, Potassium Level 3.7, Chloride Level 102, Carbon Dioxide Level 19L, Anion Gap 16H, Blood Urea Nitrogen 9, Creatinine 0.64, Estimat Glomerular Filtration Rate 100, BUN/Creatinine Ratio 14, Glucose Level 162H, Lactic Acid Level 2.02*H, Calcium Level 8.5, Corrected Calcium 9.1, Magnesium Level 1.2L, Total Bilirubin 0.6, Aspartate Amino Transf (AST/SGOT) 13, Alanine Aminotransfer ase (ALT/SGPT) 7, Alkaline Phosphatase 174H, Troponin I 0.075H, C-Reactive Protein High Sensitivity 16.59H, B-Type Natriuretic Peptide 3418.9H, Total Protein 6.2L, Albumin 3.3 03/31/23 10:35: Lactic Acid Level 1.75 Physical Exam Physical Exam Vital Signs Vital Signs - First Documented 03/31/23 03/31/23 08:20 09:08 Temp 36.2 Pulse 125 Resp 25 B/P (MAP) 130/96 (107) Pulse Ox 100 O2 Delivery Nasal Cannula O2 Flow Rate 10.00 FiO2 50 Capillary Refill : Less Than 3 Seconds Height, Weight, BMI Height: '" Weight: lbs. oz. kg; 21.00 BMI Method: General Appearance: Chronically ill, Moderate Distress HEENT: PERRL/EOMI, Pharynx Normal Neck: Non Tender, Supple Respiratory: Normal Breath Sounds, Decreased Breath Sounds, Rales Cardiovascular: No Murmur, Tachycardia Back: Normal Inspection, No CVA Tenderness, No Vertebral Tenderness Extremity: Non Tender, Pedal Edema (2+ up to mid tibia bilateral), Swelling (Chronic edema left arm) Neurologic/Psychiatric: Alert, Oriented x3 A/P-Cardiology Admission Diagnosis Acute respiratory failure CHF HTN Breast CA Assessment/Plan Acute respiratory failure, unable to tolerated vapotherm, currently on BiPAP. CXR showing bilateral infiltrates, Pneumonia vs pulmonary edema. Received IV Lasix, started on antibiotics, ABGs pending. Patient being admitted to ICU Patient is decompensating fairly quickly, consider intubation to stabilize the patient Acute on chronic congestive heart failure, chronic compensated left ventricular systolic dysfunction. Most recent 2D Echo done April 2022 showing EF 35-40%, mildly dilated left atrium, mild MR, mild AR. PA 20mmHg. Reported that she had a cardiac catheterization done in [place] in 2018 and did not have any obstructive disease. Had radiation to her chest, received Adriamycin in 1996 Maintained on Coreg 12.5 mg BID and Entresto 49-51 mg BID and Farxiga as outpatient I will evaluate 2D echo History of ICD for primary prevention. Placed on the right side Coronary artery disease, cardiac catheterization done in 2017 in [place] reported that she did not have any obstructive disease. Breast cancer, received radiation therapy and chemotherapy with Adriamycin in 1996. Currently undergoing chemotherapy for the past month. Follows with Dr. Alvarez. History of left clavicle fracture and surgery and there is erythema around the left clavicle. Chronic. Borderline hypotension, probably secondary to medication, continue to monitor blood pressure Hyperlipidemia, monitor lipids, I will evaluate lipid profile and metabolic profile History of left hip replacement, currently having right hip pain. Using a walker. Nonobstructive carotid artery stenosis per carotid duplex done Feb 2022. History of ulcerative colitis. Lymphedema in the left arm after lumpectomy History of cataract surgery Back pain, L2 compression fracture in June 2022 Thank you for allowing us to participate in the management of Ms Curiel. This is Tanika Juárez PA-C, as a scribe for Dr. Galarza. Patient was seen and evaluated with Tanika, I interviewed and examined the patient, discussed the management plan, agree with the current scribed note In summary patient admitted with acute respiratory failure, increasing shortness of breath, on my evaluation she was on BiPAP fairly lethargic but following commands. On examination she has rales diffusely but no crepitations. She is tachycardic. ABG showed hypoxemia while on BiPAP. Consider intubation, she will need aspirin and Lovenox in addition to antibiotic and diuretics, consider ARDS versus cardiogenic pulmonary edema versus mixed picture due to sepsis CT angiogram will rule out any other etiology in addition to evaluate for pulmonary embolism due to her high risk I will evaluate 2D echo Monitor her tolerance and response. Monitor cardiac enzymes Last cardiac work-up including stress test or cardiac catheterization was done in 2018. TANIKA JUÁREZ PA-C Mar 31, 2023 11:10 DANGELO GALARZA MD Mar 31, 2023 11:56
[2023-03-31 11:18] LABS: ABG BASE EXCESS -5.4 MMOL/L (-2.5-2.5); ABG OXYGEN SATURATION 97 % (94-100); ABG PCO2 29 MMHG (35-45); ABG PH 7.42 (7.37-7.43); ABG PO2 84 MMHG (79-93); ABG TCO2 19.4 MMOL/L (21.0-31.0); ALLENS TEST YES-POS
[2023-03-31 11:19] LABS: INSPIRED O2 30% BIPAP; PATIENT TEMP 35.9; VENTILATOR NO
[2023-03-31 11:58] LABS: CLARITY,URINE CLEAR; COLOR,URINE YELLOW; PH,URINE 5.5 (5-9)
[2023-03-31 11:59] LABS: BILIRUBIN,URINE 2+ (NEGATIVE); GLUCOSE, URINE (UA) 1+ (NEGATIVE); KETONES,URINE 2+ (NEGATIVE); LEUKOCYTE ESTERASE ,URINE NEGATIVE (NEGATIVE); NITRITE,URINE NEGATIVE (NEGATIVE); PROTEIN,URINE 3+ (NEGATIVE)
[2023-03-31 12:02] LABS: BACTERIA,URINE TRACE /HPF; WBC,URINE 0-2 /HPF
[2023-03-31] MEDS ORDERED: NS IV 1000 ML 1,000 ML IV STA (12:37)
--- NOTE | 2023-03-31 12:39 | History & Physical ---
ESTEFANY LIMA 03/31/23 1238: History of Present Illness History of Present Illness Reason for visit/HPI Chief Complaint: Shortness of breath Keyonna with a PMH of CHF and breast cancer presents to the ER by EMS. Patient started experiecing shortness of breath this morning at 5 AM. Patient said that she was unable to lie flat, and that any movement made her feel worse. Shortness of breath was alleviated with oxygen and also by leaning over. Patient said she last had chemotherapy for her breast cancer last week. She said that yesterday she did have some nausa, and her says she ate very little yesterday. Denies fever or chest pain. Patient says pain is currently controlled- says she has her pain patch on. Central line and intubation to happen soon. Date of Admission 03/31/2023 Time Seen by a Provider: 12:39 Attending Physician Cassy Joshi MD Admitting Physician Admitting Physician: Attending Physician: Consult Allergies and Home Medications Allergies Coded Allergies: No Known Drug Allergies (Unverified , 01/27/22) Patient Home Medication List Home Medication List Reviewed: Yes Carvedilol (Carvedilol) 12.5 Mg Tablet, 12.5 MG PO BID, (Reported) Entered as Reported by: ANDREAS MICHELLE on 01/04/23 1300 Cetirizine HCl (Cetirizine HCl) 10 Mg Tablet, 10 MG PO DAILY, (Reported) Entered as Reported by: ANDREAS MICHELLE on 01/04/23 1300 Cholecalciferol (Vitamin D3) (Vitamin D3) 25 Mcg (1000 Unit) Tablet, 25 MCG PO DAILY, (Reported) Entered as Reported by: INOCENCIA TREVINO on 01/06/23 0829 Dapagliflozin Propanediol (Farxiga) 10 Mg Tablet, 10 MG PO HS, (Reported) Entered as Reported by: ANDREAS MICHELLE on 01/04/23 1300 Dexamethasone (Dexamethasone) 1 Mg Tablet, 1 MG PO BID Prescribed by: KRYSTLE HAND on 01/17/23 1210 Duloxetine HCl (Duloxetine HCl) 60 Mg Capsule.dr, 60 MG PO DAILY, (Reported) Entered as Reported by: ANDREAS MICHELLE on 01/04/23 1300 Ezetimibe (Zetia) 10 Mg Tablet, 10 MG PO DAILY, (Reported) Entered as Reported by: INOCENCIA TREVINO on 01/13/23 1052 Fentanyl (Fentanyl Patch 75MCG) 75 Mcg/Hour Patch.td72, 150 MCG TOP Q72H Prescribed by: KRYSTLE HAND on 01/17/23 121 Furosemide (Furosemide) 40 Mg Tablet, 40 MG PO BID PRN for WATER RETENTION, (Reported) Entered as Reported by: INOCENCIA TREVINO on 01/13/23 1054 Gabapentin (Neurontin) 300 Mg Capsule, 300 MG PO HS, (Reported) Entered as Reported by: INOCENCIA TREVINO on 01/13/23 1045 Hydromorphone HCl (Hydromorphone HCl) 4 Mg Tablet, 4 MG PO Q4H PRN for PAIN- SEVERE (8-10) Prescribed by: KRYSTLE HAND on 01/17/23 121 Lactobacillus Acidophilus/Pect (Acidophilus-Pectin Capsule) 75 Million Cell-100 Mg Capsule, 2 EACH PO TIDWM Prescribed by: KRYSTLE HAND on 01/17/23 121 Lorazepam (Ativan) 0.5 Mg Tablet, 0.5 MG PO HS PRN for ANXIETY Prescribed by: KRYSTLE HAND on 01/17/23 121 Mirtazapine (Mirtazapine) 15 Mg Tab.rapdis, 15 MG PO HS Prescribed by: KRYSTLE HAND on 01/17/23 121 Naloxone HCl (Naloxone HCl) 4 Mg/Actuation [place], 1 SPRAY NSEACH UD, (Reported) Entered as Reported by: INOCENCIA TREVINO on 01/06/23 08 Nystatin (Nystatin) 100,000 Unit/Ml Oral.susp, 5 ML PO QID PRN for Throat Irritation, (Reported) Entered as Reported by: INOCENCIA TREVINO on 01/06/23 0829 Ondansetron (Ondansetron Odt) 8 Mg Tab.rapdis, 8 MG PO Q6H PRN for NAUSEA/VOMITING, (Reported) Entered as Reported by: INOCENCIA TREVINO on 01/06/23 08 Pantoprazole Sodium (Pantoprazole Sodium) 40 Mg Tablet.dr, 40 MG PO BID Prescribed by: KRYSTLE HAND on 01/17/23 121 Rosuvastatin Calcium (Crestor) 5 Mg Tablet, 5 MG PO DAILY, (Reported) Entered as Reported by: ANDREAS MICHELLE on 01/04/23 1300 Sacubitril/Valsartan (Entresto 49 mg-51 mg Tablet) 49 Mg-51 Mg Tablet, 1 TAB PO BID, (Reported) Entered as Reported by: ANDREAS MICHELLE on 01/04/23 1300 Sennosides (Senna Laxative) 8.6 Mg Tablet, 1 EA PO BID PRN for CONSTIPATION-5TH LINE, (Reported) Entered as Reported by: INOCENCIA TREVINO on 01/13/23 1050 Sucralfate (Sucralfate) 1 Gram Tablet, 1 GM PO ACHS Prescribed by: KRYSTLE HAND on 01/17/23 1210 Zinc Sulfate (Zinc) 50 Mg Zinc (220 Mg) Tablet, 50 MG PO DAILY, (Reported) Entered as Reported by: ANDREAS MICHELLE on 01/04/23 1300 Past Pnmnbhz-Vwtixo-Zlclvi Hx Patient Social History Marrital Status: ( present with her) Employed/Student: retired Tobacco Use?: No (former smoker- quit 13 years ago) Tobacco type used: Cigarettes Smoking Status: Former Smoker Substance use?: No Alcohol Use?: No (recreational) Pt feels they are or have been: No Immunizations Up To Date Tetanus Booster (TDap): Less Than 5 Years Hepatitis A: No Hepatitis B: No Seasonal Allergies Seasonal Allergies: No Current Status Advance Directives: No Communicates: Verbally (short of breath) Primary Language: Mosotho Preferred Spoken Language: Mosotho Is interpretation needed?: No Past Medical History Surgeries: Joint Replacement (hip replacement), Orthopedic (bilateral hip surgery, Left femur) Currently Using CPAP: No Currently Using BIPAP: No Chronic Edema/Swelling (Lymphedema Left arm) Colitis (History of UC) Cataract Breast Did You Recieve Any Treatments: No Blood Disorders: No Adverse Reaction/Blood Tranf: No Family Medical History Reviewed Nursing Family Hx No Pertinent Family Hx Review of Systems Constitutional: No fever, No weight loss EENTM: No hearing loss, No eye pain Respiratory: short of breath Gastrointestinal: No abdominal pain, No constipation ( ) Genitourinary: no symptoms reported Musculoskeletal: No back pain, No joint pain Skin: No change in color Psychiatric/Neurological: Denies Headache, Denies Numbness Physical Exam Vital Signs Vital Signs - First Documented 03/31/23 03/31/23 08:20 09:08 Temp 36.2 Pulse 125 Resp 25 B/P (MAP) 130/96 (107) Pulse Ox 100 O2 Delivery Nasal Cannula O2 Flow Rate 10.00 FiO2 50 Capillary Refill : Less Than 3 Seconds Height, Weight, BMI Height: '" Weight: lbs. oz. kg; 21.00 BMI Method: General Appearance: Mild Distress (mild respiratory distress) HEENT: TMs Normal, Normal ENT Inspection Neck: Full Range of Motion, Normal Inspection Respiratory: No Accessory Muscle Use; No Accessory Muscle Use Cardiovascular: No Edema, No JVD, Tachycardia Neurologic/Psychiatric: Alert, Oriented x3, No Motor/Sensory Deficits Assessment/Plan Assessment and Plan Assessment: Acute respiratory failure Possible Sepsis History of CHF History of HTN History of breast cancer Plan: Currently of BiPAP Patient to be intubated to decompensating fairly quickly Assessment/Plan Acute respiratory failure, unable to tolerated vapotherm, currently on BiPAP. CXR showing bilateral infiltrates, Pneumonia vs pulmonary edema. Received IV Lasix, started on antibiotics, ABGs pending. Patient being admitted to ICU Patient is decompensating fairly quickly, consider intubation to stabilize the patient Admission Diagnosis Admission Status: Inpatient Order (span 2 midnights) Reason for Inpatient Admission: Intubation, patient decompensating quickly KRYSTLE HAND DO 04/01/23 0451: History of Present Illness History of Present Illness Reason for visit/HPI Chief complaint: Acute hypoxic respiratory failure HPI: This is a 63-year-old female with known history of congestive heart failure on Entresto and breast cancer with metastasis who presented to the ER with shortness of breath found to have pneumonia, congestive heart failure, NSTEMI and hypotension. Patient was struggling on BiPAP so the decision was made to intubate. Patient was placed in the ICU and cardiology was consulted. Echocardiogram shows ejection fraction of 10%. Prognosis remains very poor Date Seen by a Provider: Mar 31, 2023 Allergies and Home Medications Allergies Coded Allergies: No Known Drug Allergies (Unverified , 01/27/22) Patient Home Medication List Carvedilol (Carvedilol) 12.5 Mg Tablet, 12.5 MG PO BID, (Reported) Entered as Reported by: ANDREAS MICHELLE on 01/04/23 1300 Cetirizine HCl (Cetirizine HCl) 10 Mg Tablet, 10 MG PO DAILY, (Reported) Entered as Reported by: ANDREAS MICHELLE on 01/04/23 1300 Cholecalciferol (Vitamin D3) (Vitamin D3) 25 Mcg (1000 Unit) Tablet, 25 MCG PO DAILY, (Reported) Entered as Reported by: INOCENCIA TREVINO on 01/06/23 0829 Dapagliflozin Propanediol (Farxiga) 10 Mg Tablet, 10 MG PO HS, (Reported) Entered as Reported by: ANDREAS MICHELLE on 01/04/23 1300 Dexamethasone (Dexamethasone) 1 Mg Tablet, 1 MG PO BID Prescribed by: KRYSTLE HAND on 01/17/23 1210 Duloxetine HCl (Duloxetine HCl) 60 Mg Capsule.dr, 60 MG PO DAILY, (Reported) Entered as Reported by: ANDREAS MICHELLE on 01/04/23 1300 Ezetimibe (Zetia) 10 Mg Tablet, 10 MG PO DAILY, (Reported) Entered as Reported by: INOCENCIA TREVINO on 01/13/23 1052 Fentanyl (Fentanyl Patch 75MCG) 75 Mcg/Hour Patch.td72, 150 MCG TOP Q72H Prescribed by: KRYSTEL HAND on 01/17/23 1211 Furosemide (Furosemide) 40 Mg Tablet, 40 MG PO BID PRN for WATER RETENTION, (Reported) Entered as Reported by: INOCENCIA TREVINO on 01/13/23 1054 Gabapentin (Neurontin) 300 Mg Capsule, 300 MG PO HS, (Reported) Entered as Reported by: INOCENCIA TREVINO on 01/13/23 1045 Hydromorphone HCl (Hydromorphone HCl) 4 Mg Tablet, 4 MG PO Q4H PRN for PAIN- SEVERE (8-10) Prescribed by: KRYSTLE HAND on 01/17/23 1211 Lactobacillus Acidophilus/Pect (Acidophilus-Pectin Capsule) 75 Million Cell-100 Mg Capsule, 2 EACH PO TIDWM Prescribed by: KRYSTLE HAND on 01/17/23 1210 Lorazepam (Ativan) 0.5 Mg Tablet, 0.5 MG PO HS PRN for ANXIETY Prescribed by: KRYSTLE HAND on 01/17/23 121 Mirtazapine (Mirtazapine) 15 Mg Tab.rapdis, 15 MG PO HS Prescribed by: KRYSTLE HAND on 01/17/23 1210 Naloxone HCl (Naloxone HCl) 4 Mg/Actuation [place], 1 SPRAY NSEACH UD, (Reported) Entered as Reported by: INOCENCIA TREVINO on 01/06/23 0829 Nystatin (Nystatin) 100,000 Unit/Ml Oral.susp, 5 ML PO QID PRN for Throat Irritation, (Reported) Entered as Reported by: INOCENCIA TREVINO on 01/06/23 0829 Ondansetron (Ondansetron Odt) 8 Mg Tab.rapdis, 8 MG PO Q6H PRN for NAUSEA/VOMITING, (Reported) Entered as Reported by: INOCENCIA TREVINO on 01/06/23 0829 Pantoprazole Sodium (Pantoprazole Sodium) 40 Mg Tablet.dr, 40 MG PO BID Prescribed by: KRYSTLE HAND on 01/17/23 1210 Rosuvastatin Calcium (Crestor) 5 Mg Tablet, 5 MG PO DAILY, (Reported) Entered as Reported by: ANDREAS MICHELLE on 01/04/23 1300 Sacubitril/Valsartan (Entresto 49 mg-51 mg Tablet) 49 Mg-51 Mg Tablet, 1 TAB PO BID, (Reported) Entered as Reported by: ANDREAS MICHELLE on 01/04/23 1300 Sennosides (Senna Laxative) 8.6 Mg Tablet, 1 EA PO BID PRN for CONSTIPATION-5TH LINE, (Reported) Entered as Reported by: INOCENCIA TREVINO on 01/13/23 1050 Sucralfate (Sucralfate) 1 Gram Tablet, 1 GM PO ACHS Prescribed by: KRYSTLE HAND on 01/17/23 1210 Zinc Sulfate (Zinc) 50 Mg Zinc (220 Mg) Tablet, 50 MG PO DAILY, (Reported) Entered as Reported by: ANDREAS MICHELLE on 01/04/23 1300 Past Brubqvf-Aqjnmw-Bjyjyw Hx Patient Social History Marrital Status: ( present with her) Employed/Student: retired Tobacco Use?: No (former smoker- quit 13 years ago) Smoking Status: Former Smoker Past Medical History Cardiomyopathy, Chronic Edema/Swelling (Lymphedema Left arm), High Cholesterol, Hypertension Breast Review of Systems Constitutional: see HPI, malaise, weakness Respiratory: short of breath Cardiovascular: chest pain Physical Exam General Appearance: Chronically ill, Severe Distress Respiratory: Accessory Muscle Use, Decreased Breath Sounds, Respiratory Distress Cardiovascular: Tachycardia Neurologic/Psychiatric: Alert, Oriented x3 Assessment/Plan Assessment and Plan Assessment: Acute hypoxic respiratory failure failed BiPAP required intubation Pneumonia SepsisPneumonia SepsisHypotension NSTEMI Congestive heart failure Breast cancer with mets Cardiomyopathy ejection fraction 10% Plan: ICU IV antibiotics Intubate IV fluids poor prognosis Admission Diagnosis Admission Status: Inpatient Order (span 2 midnights) Reason for Inpatient Admission: Multisystem organ failure Supervisory-Addendum Brief Verification & Attestation Participated in pt care: history, MDM, physical Personally performed: exam, history, MDM, supervision of care Care discussed with: Medical Student Procedures: n/a Results interpretation: Verified all documentation Verification and Attestation of Medical Student E/M Service A medical student performed and documented this service in my presence. I reviewed and verified all information documented by the medical student and made modifications to such information, when appropriate. I personally performed the physical exam and medical decision making. Krystle Hand, Apr 01, 2023,04:48 ESTEFANY LIMA Mar 31, 2023 12:38 KRYSTLE HAND DO Apr 01, 2023 04:51
--- NOTE | 2023-03-31 13:08 | Diagnostic Imaging Report ---
CLINICAL INDICATION: Patient intubated and orogastric tube placed. EXAM: Portable chest x-ray upright view. COMPARISON: Chest x-ray dated 03/31/2023 at 0912 hours. FINDINGS AND IMPRESSION: 1: There is interval placement of ET tube with tip seen roughly 3 cm from the expected region of the randolph. 2: Interval placement of orogastric feeding tube with proximal port overlying the expected region of the cardiac portion of the stomach. 3: There are bilateral lung infiltrates seen which have slightly progressed in the left lung base and left perihilar region. 4: The remainder of this exam shows no significant interval change compared to the prior study of comparison. Dictated by: Dictated on workstation # [id number]
[2023-03-31] MEDS ORDERED: MILK OF MAGNESIA 400 MG/5 ML 30 ML UDC PO PRN (14:00)
[2023-03-31] MEDS ORDERED: PHARMACY TO DOSE IV SCH (14:00)
[2023-03-31] MEDS ORDERED: PATIENT MAY USE OWN MEDS, ALL PO SCH (14:00)
[2023-03-31] MEDS ORDERED: diphenhydrAMINE INJ 50 MG/ML VIAL IVP PRN (14:00)
[2023-03-31] MEDS ORDERED: NITROGLYCERIN 0.4 MG SL TABLETS BTL 25'S SL PRN (14:00)
[2023-03-31] MEDS ORDERED: diphenhydrAMINE 25 MG TABLET PO PRN (14:00)
[2023-03-31] MEDS ORDERED: NS IV 500 ML 500 ML IV PRN (14:00)
[2023-03-31] MEDS ORDERED: MELATONIN 3 MG TABLET PO PRN (14:00)
[2023-03-31] MEDS ORDERED: HALOPERIDOL INJECTION 5 MG/ML VIAL IV PRN (14:00)
[2023-03-31] MEDS ORDERED: ONDANSETRON INJECTION 4 MG/2 ML (SDV) IV PRN (14:00)
[2023-03-31] MEDS ORDERED: ANTACID SUSPENSION 30 ML UDC PO PRN (14:00)
[2023-03-31] MEDS ORDERED: BISACODYL 10 MG SUPPOSITORY PR PRN (14:00)
[2023-03-31] MEDS ORDERED: oxyCODONE IMMEDIATE RELEASE 5 MG TABLET PO PRN (14:00)
[2023-03-31] MEDS ORDERED: ONDANSETRON 4 MG ORAL DISSOLVE TABLET PO PRN (14:00)
[2023-03-31] MEDS ORDERED: CALCIUM CARBONATE 500 MG CHEW TABLET PO PRN (14:00)
[2023-03-31] MEDS ORDERED: DexMEDEtomidine 1,000mcg/250ml 250 ML IV SCH (14:00)
[2023-03-31] MEDS ORDERED: LACTULOSE SYRUP 10GM/15ML 30ML UDC PO PRN (14:00)
[2023-03-31] MEDS ORDERED: ACETAMINOPHEN 325 MG TABLET PO PRN (14:00)
[2023-03-31] MEDS ORDERED: LORazepam 0.5 MG TABLET PO PRN (14:00)
[2023-03-31] MEDS: fentaNYL DRIP PRE-MIX 250 ML IV SCH (14:17)
[2023-03-31] MEDS: DexMEDEtomidine 1,000mcg/250ml 250 ML IV SCH (14:28)
--- NOTE | 2023-03-31 14:45 | Tele-ICU Consult ---
History of Present Illness History of Present Illness Date Seen by Provider: Mar 31, 2023 Time Seen by Provider: 14:45 Date of Admission Reason for Visit: CHF, respiratory failure History of Present Illness OMIT double entry Allergies and Home Medications Allergies Coded Allergies: No Known Drug Allergies (Unverified , 01/27/22) Home Medications Carvedilol 12.5 Mg Tablet, 12.5 MG PO BID, (Reported) Cetirizine HCl 10 Mg Tablet, 10 MG PO DAILY, (Reported) Cholecalciferol (Vitamin D3) 25 Mcg (1000 Unit) Tablet, 25 MCG PO DAILY, (Reported) Dapagliflozin Propanediol 10 Mg Tablet, 10 MG PO HS, (Reported) Dexamethasone 1 Mg Tablet, 1 MG PO BID Prescribed by: EDUARDO HAND on 01/17/231209 Duloxetine HCl 60 Mg Capsule.dr, 60 MG PO DAILY, (Reported) Ezetimibe 10 Mg Tablet, 10 MG PO DAILY, (Reported) Fentanyl 75 Mcg/Hour Patch.td72, 150 MCG TOP Q72H Prescribed by: EDUARDO HAND on 01/17/23 121 Furosemide 40 Mg Tablet, 40 MG PO BID PRN for WATER RETENTION, (Reported) Gabapentin 300 Mg Capsule, 300 MG PO HS, (Reported) Hydromorphone HCl 4 Mg Tablet, 4 MG PO Q4H PRN for PAIN-SEVERE (8-10) Cancer patient Prescribed by: EDUARDO HAND on 01/17/23 121 Lactobacillus Acidophilus/Pect 75 Million Cell-100 Mg Capsule, 2 EACH PO TIDWM Prescribed by: EDUARDO HAND on 01/17/231209 Lorazepam 0.5 Mg Tablet, 0.5 MG PO HS PRN for ANXIETY Prescribed by: EDUARDO HAND on 01/17/23 121 Mirtazapine 15 Mg Tab.rapdis, 15 MG PO HS Prescribed by: EDUARDO HAND on 01/17/23 121 Naloxone HCl 4 Mg/Actuation [place], 1 SPRAY NSEACH UD, (Reported) Nystatin 100,000 Unit/Ml Oral.susp, 5 ML PO QID PRN for Throat Irritation, (Reported) Ondansetron 8 Mg Tab.rapdis, 8 MG PO Q6H PRN for NAUSEA/VOMITING, (Reported) Pantoprazole Sodium 40 Mg Tablet.dr, 40 MG PO BID Prescribed by: EDUARDO HAND on 01/17/23 1210 Rosuvastatin Calcium 5 Mg Tablet, 5 MG PO DAILY, (Reported) Sacubitril/Valsartan 49 Mg-51 Mg Tablet, 1 TAB PO BID, (Reported) Sennosides 8.6 Mg Tablet, 1 EA PO BID PRN for CONSTIPATION-5TH LINE, (Reported) Sucralfate 1 Gram Tablet, 1 GM PO ACHS Prescribed by: EDUARDO HAND on 01/17/23 1210 Zinc Sulfate 50 Mg Zinc (220 Mg) Tablet, 50 MG PO DAILY, (Reported) Past Medical/Social/Family Hx Patient Social History Marrital Status: ( present with her) Employed/Student: retired Tobacco Use?: No (former smoker- quit 13 years ago) Tobacco type used: Cigarettes Smoking Status: Former Smoker Substance use?: No Alcohol Use?: No (recreational) Pt stated abuse/neglect: No Immunizations Up To Date Tetanus Booster (TDap): Less Than 5 Years Hepatitis A: No Hepatitis B: No Current Status Advance Directives: No Communicates: Verbally (short of breath) Primary Language: Divehi Preferred Spoken Language: Divehi Is interpretation needed?: No Review of Systems Constitutional: other Focused Exam Lactate Level 03/31/23 08:30: Lactic Acid Level 2.02*H 03/31/23 10:35: Lactic Acid Level 1.75 Height, Weight, BMI Height: '" Weight: lbs. oz. kg; 21.00 BMI Method: Exam Exam Patient acknowledged, consented, and participated in this virtual visit which was conducted using real time audio/video Vital Signs Date Time Temp Pulse Resp B/P (MAP) Pulse Ox O2 Delivery O2 Flow Rate FiO2 03/31/23 14:28 97 102/79 03/31/23 14:20 93 16 102/79 (87) 89 Mechanical Ventilator 40.00 03/31/23 14:17 93 102/79 03/31/23 14:13 94 03/31/23 13:51 93 102/79 03/31/23 12:54 114 130/98 03/31/23 10:53 114 20 99 30.00 03/31/23 09:08 99 Vapotherm 40.00 50 03/31/23 08:20 36.2 125 25 130/96 (107) 100 OxyMask 10.00 03/31/23 08:20 100 Nasal Cannula 10.00 Height & Weight Height: '" Weight: lbs. oz. kg; 21.00 BMI Method: General Appearance: Mild Distress (mild respiratory distress) HEENT: TMs Normal, Normal ENT Inspection Neck: Full Range of Motion, Normal Inspection Respiratory: No Accessory Muscle Use; No Accessory Muscle Use Cardiovascular: No Edema, No JVD, Tachycardia Capillary Refill: Less Than 3 Seconds Extremity: Non Tender, Pedal Edema (2+ up to mid tibia bilateral), Swelling (Chronic edema left arm) Neurologic/Psychiatric: Alert, Oriented x3, No Motor/Sensory Deficits Results Lab Laboratory Tests 03/31/23 08:30 Assessment/Plan Assessment/Plan 1 LUIS EDUARDO TERRY MD Mar 31, 2023 14:45
[2023-03-31] MEDS: NS IV 1000 ML 1,000 ML IV SCH (14:53)
[2023-03-31 14:56] LABS: ABG BASE EXCESS -4.5 MMOL/L (-2.5-2.5); ABG OXYGEN SATURATION 98 % (94-100); ABG PCO2 32 MMHG (35-45); ABG PO2 102 MMHG (79-93); ABG TCO2 20.6 MMOL/L (21.0-31.0); ALLENS TEST YES-POS; INSPIRED O2 40; PATIENT TEMP 36.5; VENTILATOR YES
[2023-03-31 15:06] VITALS: BP 102/79
[2023-03-31] MEDS ORDERED: RT-ALBUTEROL SULF 2.5 MG/3 ML PRE-MIX VIAL INH PRN (15:15)
[2023-03-31] MEDS: MAGNESIUM 1 GM/100 ML IVPB 100 ML IV SCH (15:23)
--- NOTE | 2023-03-31 15:45 | Tele-ICU Consult ---
History of Present Illness History of Present Illness Date Seen by Provider: Mar 31, 2023 Time Seen by Provider: 15:45 Date of Admission Reason for Visit: CHF, respiratory failure History of Present Illness (Tele-ICU Physician , consultation as per request of PCP Service provided via interactive audio and video [facility] [facility] system to a patient admitted to ICU bed in [facility]. Available chart/ vitals / labs / Images reviewed H&P is from ER notes Patient's information available about PMH, Shx, Fhx allergy reviewed inEMR. ROS as per chart and RN report Now in ICU, hemodynamically stable Video assessment done using teleICU camera, rest of exam as per RN Discussed with RN. VENT SETTINGS and ABG reviewed NOT CANDIDATE for SBTreviewed possible contraindications including Cardiovascular Stability /Sedation Score / FI02/PEEP / ABG / CXR/ secretions Sedation, discussed with RN, RASS on propofol 50 , fentanuyl gtt , precedex Hospital course: A/P Acute hypoxic respiratory failure presumed - due to CHF , less supected PE ( received full dose lovenox in ER - will check UL LE given 3+ edema - -failed vapotherm, BiPAP- INTUBATED 03/31 in ER AC 16 450 40 % +6 - follow abg -cont disures CHF ( s/p ICD - in 2021 showing EF 35-40% - given lasix - on NS 250/h -cards consulted - will decrease IVF , if hypotensive will consult cards - ? dobutamine vs IVF Anemia - hb 9 - stable Breast cancer, received radiation therapy and chemotherapy with Adriamycin in 1996 - Currently undergoing chemotherapy h/o ulcerative colitis Chronic pain ( pn fentamyl patches ) - fentanyl gtt Lines : LEFT port , (Central Line Necessity Reviewed) Agrawal: + 03/31 OG: Nutrition: Analgesia: Anxiety/ delirium VTE Prophylaxis: jordyn Stress Ulcer Prophylaxis: Plans in collaboration with bedside consultants and IM MDs. Discussed with RN to reach out if any questions or concerns A total of 32 _ minutes of critical care time was devoted to this patient today, required to treat and/or prevent further deterioration of critical care condition ( as above ) . I am remotely monitoring this patient from another state. I am unable to do the bedside exam, and history/physical and pertinent information is taken from other notes in the computer and bedside staff. . Allergies and Home Medications Allergies Coded Allergies: No Known Drug Allergies (Unverified , 01/27/22) Home Medications Carvedilol 12.5 Mg Tablet, 12.5 MG PO BID, (Reported) Cetirizine HCl 10 Mg Tablet, 10 MG PO DAILY, (Reported) Cholecalciferol (Vitamin D3) 25 Mcg (1000 Unit) Tablet, 25 MCG PO DAILY, (Reported) Dapagliflozin Propanediol 10 Mg Tablet, 10 MG PO HS, (Reported) Dexamethasone 1 Mg Tablet, 1 MG PO BID Prescribed by: EDUARDO HAND on 01/17/23 121 Duloxetine HCl 60 Mg Capsule.dr, 60 MG PO DAILY, (Reported) Ezetimibe 10 Mg Tablet, 10 MG PO DAILY, (Reported) Fentanyl 75 Mcg/Hour Patch.td72, 150 MCG TOP Q72H Prescribed by: EDUARDO HAND on 01/17/23 121 Furosemide 40 Mg Tablet, 40 MG PO BID PRN for WATER RETENTION, (Reported) Gabapentin 300 Mg Capsule, 300 MG PO HS, (Reported) Hydromorphone HCl 4 Mg Tablet, 4 MG PO Q4H PRN for PAIN-SEVERE (8-10) Cancer patient Prescribed by: EDUARDO HAND on 01/17/23 121 Lactobacillus Acidophilus/Pect 75 Million Cell-100 Mg Capsule, 2 EACH PO TIDWM Prescribed by: EDUARDO HAND on 01/17/23 121 Lorazepam 0.5 Mg Tablet, 0.5 MG PO HS PRN for ANXIETY Prescribed by: EDUARDO HAND on 01/17/23 121 Mirtazapine 15 Mg Tab.rapdis, 15 MG PO HS Prescribed by: EDUARDO HAND on 01/17/23 121 Naloxone HCl 4 Mg/Actuation [place], 1 SPRAY NSEACH UD, (Reported) Nystatin 100,000 Unit/Ml Oral.susp, 5 ML PO QID PRN for Throat Irritation, (Reported) Ondansetron 8 Mg Tab.rapdis, 8 MG PO Q6H PRN for NAUSEA/VOMITING, (Reported) Pantoprazole Sodium 40 Mg Tablet.dr, 40 MG PO BID Prescribed by: EDUARDO HAND on 01/17/23 121 Rosuvastatin Calcium 5 Mg Tablet, 5 MG PO DAILY, (Reported) Sacubitril/Valsartan 49 Mg-51 Mg Tablet, 1 TAB PO BID, (Reported) Sennosides 8.6 Mg Tablet, 1 EA PO BID PRN for CONSTIPATION-5TH LINE, (Reported) Sucralfate 1 Gram Tablet, 1 GM PO ACHS Prescribed by: EDUARDO HAND on 01/17/23 1210 Zinc Sulfate 50 Mg Zinc (220 Mg) Tablet, 50 MG PO DAILY, (Reported) Past Medical/Social/Family Hx Patient Social History Marrital Status: ( present with her) Employed/Student: retired Tobacco Use?: Yes Tobacco type used: Cigarettes Smoking Status: Former Smoker Use of E-Cig and/or Vaping dev: No Substance use?: No Alcohol Use?: Yes Alcohol type: Wine Alcohol Frequency: Couple times a week Pt stated abuse/neglect: No Immunizations Up To Date Influenza Vaccine Up-to-Date: No; Not Current Tetanus Booster (TDap): Less Than 5 Years Hepatitis A: No Hepatitis B: No Current Status status: No status: No Advance Directives: Unable to obtain Communicates: Verbally Primary Language: [place]ese Preferred Spoken Language: [place]ese Is interpretation needed?: No Implanted or Applied Medical D: Pacemaker, Port-a-cath Review of Systems Constitutional: other Focused Exam Lactate Level 03/31/23 08:30: Lactic Acid Level 2.02*H 03/31/23 10:35: Lactic Acid Level 1.75 Height, Weight, BMI Height: '" Weight: lbs. oz. kg; 21.70 BMI Method: Exam Exam Patient acknowledged, consented, and participated in this virtual visit which was conducted using real time audio/video Vital Signs Date Time Temp Pulse Resp B/P (MAP) Pulse Ox O2 Delivery O2 Flow Rate FiO2 03/31/23 15:06 36.5 97 94 40 03/31/23 15:04 89 16 96/67 (77) 100 Mechanical Ventilator 40.00 03/31/23 14:28 97 102/79 03/31/23 14:20 93 16 102/79 (87) 89 Mechanical Ventilator 40.00 03/31/23 14:17 93 102/79 03/31/23 14:13 94 03/31/23 13:51 36.5 03/31/23 13:51 93 102/79 03/31/23 12:54 114 130/98 03/31/23 10:53 114 20 99 30.00 03/31/23 09:08 99 Vapotherm 40.00 50 03/31/23 08:20 36.2 125 25 130/96 (107) 100 OxyMask 10.00 03/31/23 08:20 100 Nasal Cannula 10.00 Height & Weight Height: '" Weight: lbs. oz. kg; 21.70 BMI Method: General Appearance: Mild Distress (mild respiratory distress) HEENT: TMs Normal, Normal ENT Inspection Neck: Full Range of Motion, Normal Inspection Respiratory: No Accessory Muscle Use; No Accessory Muscle Use Cardiovascular: No Edema, No JVD, Tachycardia Capillary Refill: Less Than 3 Seconds Extremity: Non Tender, Pedal Edema (2+ up to mid tibia bilateral), Swelling (Chronic edema left arm) Neurologic/Psychiatric: Alert, Oriented x3, No Motor/Sensory Deficits Results Lab Laboratory Tests 03/31/23 08:30 Assessment/Plan Assessment/Plan 1 LUIS EDUARDO TERRY MD Mar 31, 2023 15:45
[2023-03-31] MEDS ORDERED: inSUlin ASPART 1 UNIT/0.01 ML (PER UNIT) SC SCH (16:00)
[2023-03-31] MEDS ORDERED: NS IV 1000 ML 1,000 ML IV SCH ×2 (16:15→20:45)
[2023-03-31] MEDS ORDERED: DOBUTamine DRIP PRE-MIX 250 ML IV SCH (16:15)
[2023-03-31] MEDS: FUROSEMIDE INJECTION 40 MG/4 ML VIAL IV SCH (17:30)
[2023-03-31] MEDS: inSUlin ASPART 1 UNIT/0.01 ML (PER UNIT) SC SCH (17:38)
[2023-03-31] MEDS ORDERED: NOREPINEPHRINE 8 MG/250 ML 250 ML IV ONE (17:56)
[2023-03-31] MEDS: NOREPINEPHRINE 8 MG/250 ML 250 ML IV SCH (18:00)
[2023-03-31] MEDS: DOBUTamine DRIP PRE-MIX 250 ML IV SCH ×2 (18:18→21:03)
[2023-03-31] MEDS ORDERED: fentaNYL INJECTION 100 MCG/2 ML VIAL ONE (19:05)
[2023-03-31] MEDS ORDERED: fentaNYL INJECTION 100 MCG/2 ML VIAL IVP ONE (19:15)
[2023-03-31] MEDS: RT-Ipratropium/Albuterol NEB 3 ML VIAL INH SCH ×2 (19:36→23:00)
--- NOTE | 2023-03-31 19:43 | Diagnostic Imaging Report ---
CHEST 1 VIEW, AP/PA ONLY Indication: Central line placement Comparison: Earlier same day at 12:56 PM Findings: ET tube has been advanced and has tip 2 cm above the randolph. Enteric tube terminates in the stomach. Right IJ central venous catheter has tip terminating in the superior cavoatrial junction. Stable left IJ central venous catheter. Bilateral perihilar pulmonary opacities have mildly improved but persists. Stable cardiomegaly. No pleural effusion or pneumothorax. Stable right pectoral transvenous pacemaker/ICD. Impression: 1. Well-positioned right IJ central venous catheter without pneumothorax. 2. Mildly improved but persistent bilateral pulmonary edema. Dictated by: Dictated on workstation # [id number]
[2023-03-31] MEDS ORDERED: LIDOCAINE 1% INJ 20 ML VIAL ONE (20:15)
[2023-03-31] MEDS: morphine INJ 4 MG/ML 1 ML (VIAL/SYRINGE) IV PRN (20:18)
[2023-03-31] MEDS: CEFEPIME 1,000 MG/NS 50 ML IVPB IV SCH ×4 (20:44→23:31)
--- NOTE | 2023-03-31 20:44 | Anesthesia-Procedure Note ---
Procedures/Interventions Procedure Start/Stop/Diagnosis Date of Procedure: Mar 31, 2023 Start Time: 20:00 Stop Time: 20:30 Arterial Line Arterial Line Catheter: 20G Type: Radial (US guided. ) Location: Right Procedure: prepped, draped in sterile fashion, 1% lidocaine used to numb region, good wave-form was obtained, patient tolerated procedure well, no immediate complications, post procedure area cleaned, post procedure dressing applied JOSEFA POWERS CRNA Mar 31, 2023 20:44
[2023-03-31] MEDS ORDERED: CEFEPIME INJECTION 2,000 MG in NS (IVPB) 50 ML 50 ML IV SCH (21:00)
[2023-03-31] MEDS: SENNOSIDES 8.6 MG TABLET PO SCH (21:05)
[2023-03-31] MEDS: DOCUSATE SODIUM 100 MG CAPSULE PO SCH (21:05)
[2023-03-31] MEDS: VANCOMYCIN 1 GM/NS 250 ML IVPB IV SCH ×2 (22:04)
[2023-03-31] MEDS ORDERED: ENOXAPARIN 80 MG/0.8 ML SYRINGE SC SCH (23:00)
[2023-04-01] VITALS (10 sets, daily range): BP systolic 97–130; BP diastolic 53–79
[2023-04-01] MEDS: inSUlin ASPART 1 UNIT/0.01 ML (PER UNIT) SC SCH ×5 (01:09→23:49)
[2023-04-01] MEDS: DOBUTamine DRIP PRE-MIX 250 ML IV SCH ×6 (01:09→21:50)
[2023-04-01] MEDS: NOREPINEPHRINE 8 MG/250 ML 250 ML IV SCH ×2 (02:41→11:27)
[2023-04-01] MEDS ORDERED: NS IV 1000 ML 1,000 ML IV SCH (02:45)
[2023-04-01] MEDS: RT-Ipratropium/Albuterol NEB 3 ML VIAL INH SCH ×6 (02:48→22:07)
[2023-04-01 03:56] LABS: BASOPHILS % (AUTO) 1 % (0-10); EOSINOPHILS % (AUTO) 1 % (0-10); HEMATOCRIT 21 % (35-52); LYMPHOCYTES # (AUTO) 0.4 10^3/uL (1.0-4.0); LYMPHOCYTES % (AUTO) 8 % (12-44); MEAN CORPUSCULAR HEMOGLOBIN 29 pg (25-34); MEAN CORPUSCULAR HGB CONC 33 g/dL (32-36); MEAN CORPUSCULAR VOLUME 89 fL (80-99); MONOCYTES # (AUTO) 0.8 10^3/uL (0.0-1.0); MONOCYTES % (AUTO) 15 % (0-12); NEUTROPHILS # (AUTO) 3.7 10^3/uL (1.8-7.8); NEUTROPHILS % (AUTO) 65 % (42-75); PLATELET COUNT 328 10^3/uL (130-400); WHITE BLOOD COUNT 5.8 10^3/uL (4.3-11.0)
[2023-04-01 04:05] LABS: HEMOGLOBIN 6.8 g/dL (11.5-16.0)
[2023-04-01 04:11] LABS: ALBUMIN 2.7 GM/DL (3.2-4.5); BILIRUBIN,TOTAL 0.4 MG/DL (0.1-1.0); CALCIUM 7.3 MG/DL (8.5-10.1); CREATININE SERUM 0.65 MG/DL (0.60-1.30); MAGNESIUM 1.3 MG/DL (1.6-2.4); PHOSPHORUS 2.8 MG/DL (2.3-4.7); POTASSIUM 2.9 MMOL/L (3.6-5.0); TOTAL PROTEIN 5.1 GM/DL (6.4-8.2)
[2023-04-01] MEDS ORDERED: VASOPRESSIN (PYXIS DRIP KIT) 20 UNIT/1 ML VIAL ONE (04:29)
[2023-04-01] MEDS ORDERED: NS (IVPB) 100 ML 100 ML ONE (04:30)
[2023-04-01] MEDS: VASOPRESSIN INJECTION 20 UNIT in NS (IVPB) 100 ML 100 ML IV SCH ×2 (04:35→13:20)
[2023-04-01] MEDS ORDERED: ACETAMINOPHEN 325 MG TABLET PO PRN (05:00)
[2023-04-01] MEDS ORDERED: diphenhydrAMINE INJ 50 MG/ML VIAL IVP PRN (05:00)
[2023-04-01] MEDS ORDERED: NS IV 500 ML 500 ML IV SCH ×2 (05:00)
[2023-04-01] MEDS: CEFEPIME 1,000 MG/NS 50 ML IVPB IV SCH ×8 (05:27→22:53)
[2023-04-01] MEDS: MAGNESIUM 1 GM/100 ML IVPB 100 ML IV SCH ×7 (06:05→11:55)
[2023-04-01] MEDS: POTASSIUM CL 10MEQ/50ML IVPB 50 ML IV SCH ×11 (06:05→16:35)
[2023-04-01] MEDS: POTASSIUM CHLORIDE 20 MEQ TABLET PO SCH (06:05)
[2023-04-01] MEDS: fentaNYL DRIP PRE-MIX 250 ML IV SCH ×2 (06:50→19:20)
[2023-04-01 07:32] LABS: ABG BASE EXCESS -2.7 MMOL/L (-2.5-2.5); ABG OXYGEN SATURATION 99 % (94-100); ABG PCO2 36 MMHG (35-45); ABG PH 7.39 (7.37-7.43); ABG PO2 116 MMHG (79-93); ABG TCO2 22.5 MMOL/L (21.0-31.0)
[2023-04-01 07:33] LABS: ALLENS TEST YES-POS; INSPIRED O2 40%; VENTILATOR YES
--- NOTE | 2023-04-01 07:36 | Diagnostic Imaging Report ---
EXAMINATION: CT chest, abdomen and pelvis with and without contrast. TECHNIQUE: Precontrast images were obtained of the chest, abdomen, and pelvis. Multiple contiguous axial images were obtained through the chest, abdomen, and pelvis after administration of intravenous contrast. Auto Exposure Controls were utilized during the CT exam to meet ALARA standards for radiation dose reduction. HISTORY: soa COMPARISON: None available. FINDINGS: No evidence of pulmonary emboli. The pulmonary trunk is enlarged. Aorta is normal in caliber. The heart is enlarged. No pericardial effusion. No lymphadenopathy within the chest. Bibasilar atelectasis and multifocal bilateral airspace opacities. Small to moderate pleural effusions. There is no axillary or supraclavicular lymphadenopathy. There is no mediastinal lymphadenopathy. Heart size is enlarged. There are mild coronary artery calcifications. No pericardial effusion. Aorta is normal in caliber. Included views of the abdomen demonstrates no significant abnormality. Diffuse osseous metastatic disease. IMPRESSION: No evidence of pulmonary emboli. Multifocal bilateral airspace opacities may represent infection or pulmonary edema. Small to moderate bilateral pleural effusions with associated bibasilar atelectasis. Dictated by: Dictated on workstation # [id number]
--- NOTE | 2023-04-01 08:22 | Cardiology Progress Note ---
Subjective Date Seen by Provider: Apr 01, 2023 Time Seen by Provider: 08:18 Subjective/Events-last exam Patient is intubated, opening her eyes, following commands. Review of Systems General: Other (Unable to provide review of system) Focused Exam Lactate Level 03/31/23 08:30: Lactic Acid Level 2.02*H 03/31/23 10:35: Lactic Acid Level 1.75 Objective-Cardiology Exam Last Set of Vital Signs Vital Signs 04/01/23 04/01/23 04/01/23 07:40 07:57 08:00 Temp 36.3 Pulse 114 Resp 13 B/P (MAP) 130/65 (86) Pulse Ox 99 O2 Delivery Mechanical Ventilator O2 Flow Rate 30.00 FiO2 40 I&O Intake and Output 04/01/23 00:00 Intake Total 1350 ml Output Total 950 ml Balance 400 ml Intake Oral 0 ml IV Total 1350 ml Output Urine Total 950 ml Daily Weight Change Yes, Greater than 33 lbs General: Alert, Cooperative, Other (Ventilator dependent) HEENT: Atraumatic Neck: Supple, No JVD Lungs: Clear to Auscultation, Normal Air Movement Heart: Regular Rate, Normal S1, Normal S2 Abdomen: Normal Bowel Sounds, Soft Extremities: No Clubbing, Other (Left upper extremity edema) Skin: No Rashes, No Breakdown Neuro: Other (Ventilator dependent) Psych/Mental Status: Other (Ventilator dependent) Results Lab Laboratory Tests 03/31/23 08:30 04/01/23 03:40 A/P-Cardiology Admission Diagnosis Acute respiratory failure CHF HTN Breast CA Assessment/Plan Acute respiratory failure, ventilator dependent Pulmonary edema, most probably cardiogenic due to congestive heart failure Underlying pneumonia cannot be excluded, CTA of the chest was reviewed, no pulmonary embolism Continue with pressors and IV fluid for now Hypotensive shock, combined septic and cardiogenic shock Maintained on multiple pressors and IV fluid Continue with supportive care Anemia, drop in H&H Receiving blood transfusion and IV Protonix Work-up in progress. Acute on chronic congestive heart failure, chronic compensated left ventricular systolic dysfunction. Echocardiogram done on March 31, 2023 with ejection fraction 10 to 15%, PA pressure 70 to 75 mmHg, mild to moderate mitral and aortic regurgitation Right heart chambers are not enlarged Reported that she had a cardiac catheterization done in [place] in 2018 and did not have any obstructive disease. Patient will need cardiac catheterization once her H&H are stable Had radiation to her chest, received Adriamycin in 1996 Has been receiving paclitaxel recently Maintained on Coreg 12.5 mg BID and Entresto 49-51 mg BID and Farxiga as out patient History of ICD for primary prevention. Placed on the right side Coronary artery disease, cardiac catheterization done in 2017 in [place] reported that she did not have any obstructive disease. Will need cardiac catheterization once clinically more stable Breast cancer, received radiation therapy and chemotherapy with Adriamycin in 1996. Currently undergoing chemotherapy for the past month with paclitaxel. Follows with Dr. Alvarez. History of left clavicle fracture and surgery and there is erythema around the left clavicle. Chronic. Hyperlipidemia, monitor lipids, History of left hip replacement, currently having right hip pain. Using a walker. Nonobstructive carotid artery stenosis per carotid duplex done Feb 2022. History of ulcerative colitis. Lymphedema in the left arm after lumpectomy History of cataract surgery Back pain, L2 compression fracture in June 2022 I have visited with the , discussed treatment options and plan, conservative management for now and will consider cardiac catheterization once her H&H are more stable DANGELO FERREIRA MD Apr 01, 2023 08:22
[2023-04-01] MEDS: PANTOPRAZOLE INJECTION 40 MG VIAL IV SCH (08:31)
[2023-04-01] MEDS: FUROSEMIDE INJECTION 40 MG/4 ML VIAL IV SCH ×2 (08:31→16:40)
[2023-04-01] MEDS: VANCOMYCIN 1 GM/NS 250 ML IVPB IV SCH ×4 (08:31→20:55)
[2023-04-01] MEDS: DOCUSATE SODIUM 100 MG CAPSULE PO SCH ×2 (08:42→20:52)
[2023-04-01] MEDS: SENNOSIDES 8.6 MG TABLET PO SCH ×2 (08:42→20:52)
[2023-04-01] MEDS: ASPIRIN enteric coated 81MG TABLET PO SCH (08:50)
--- NOTE | 2023-04-01 09:35 | Tele-ICU Progress Note ---
Subjective Date Seen by a Provider: Apr 01, 2023 Time Seen by a Provider: 09:34 Subjective/Events-last exam (Tele-ICU Physician , Progress Note ) Service provided via interactive audio and video telecommunications [facility] to a patient admitted to ICU bed in [facility]. Patient is seen today due to persistent need of ICU care Available chart/ vitals / labs / Images reviewed Video assessment done using teleICU camera, rest of exam as per RN She is a 63-year-old female with past medical history of breast cancer and was treated with Adriamycin in 1996. Lately she has a history of congestive heart failure now admitted with progressively worsening shortness of breath associated with peripheral edema. In the emergency room she is found to be in acute respiratory distress requiring intubation. She had a borderline blood pressure initially requiring fluid boluses. Today she remained on mechanical ventilation however she dropped her blood hemoglobin from 9.1-6.8 with no clinical evidence of bleeding. She is receiving 2 units of packed red blood cells today. She is on a dobutamine and vasopressin per cardiology. She did have a positive fluid balance. Upon review of her x-rays and overall clinical future I do not think she will be able to be weaned off the ventilator today. Impression 1. Acute on chronic systolic congestive heart failure. 2. Acute respiratory failure requiring mechanical ventilation 3. Acute blood loss anemia rule out any GI bleeding. 4. History of fall breast cancer status post chemoradiation therapy in the past Recommendations 1. Next continue mechanical ventilatory support and I do not think she will be able to tolerate SBT today. 2. We will repeat CBC after blood transfusion 3. Continue IV Lasix with continuation of vasopressin and dobutamine 4. We will check stool for guaiac. 4. Who for the able to get negative fluid balance will consider SBT tomorrow. 6. Ulcer prophylaxis with Protonix. 7. We will hold Lovenox until we have a rule out active GI bleeding. Coordination of care with primary care physician and bedside consultants I am remotely monitoring this patient from Tele icu station in [place]. I am unable to do the bedside exam, and history/physical and pertinent information is taken from other notes in the computer and bedside staff. Certain portions of this document may have been dictated utilizing voice recognition technology such as [employer]. Inherent to this technology, typographical and grammatical errors may exist. As much as I am diligent to identify and correct to these mistakes, some errors may remain in the document. Critical care time devoted to this patient today is approximately is-40 minutes- Sepsis Event Evaluation Height, Weight, BMI Height: '" Weight: lbs. oz. kg; 22.37 BMI Method: Focused Exam Lactate Level 03/31/23 08:30: Lactic Acid Level 2.02*H 03/31/23 10:35: Lactic Acid Level 1.75 Exam Exam Patient acknowledged, consented, and participated in this virtual visit which was conducted using real time audio/video Vital Signs Date Time Temp Pulse Resp B/P (MAP) Pulse Ox O2 Delivery O2 Flow Rate FiO2 04/01/23 09:28 36.3 111 19 97/53 96 Mechanical Ventilator 30 04/01/23 09:26 106 93/53 04/01/23 09:07 36.6 111 19 108/59 97 Mechanical Ventilator 30 04/01/23 08:49 125 123/73 04/01/23 08:02 36.3 112 18 130/65 100 Mechanical Ventilator 40 04/01/23 08:00 40 04/01/23 08:00 114 13 130/65 (86) 99 Mechanical Ventilator 30.00 04/01/23 07:57 36.3 Mechanical Ventilator 40.00 04/01/23 07:50 Mechanical Ventilator 30.00 04/01/23 07:40 102 21 100 40 04/01/23 07:26 103 04/01/23 07:00 118 16 119/61 (80) 100 Mechanical Ventilator 40.00 04/01/23 06:50 102 109/58 04/01/23 06:00 108 16 114/64 (81) 100 Mechanical Ventilator 40.00 04/01/23 05:55 36.4 107 16 109/57 100 40.00 04/01/23 05:24 106 95/53 04/01/23 05:00 115 16 109/70 (83) 99 Mechanical Ventilator 40.00 04/01/23 04:35 129 90/45 04/01/23 04:00 130 16 100/77 (85) 100 Mechanical Ventilator 40.00 04/01/23 04:00 100 Mechanical Ventilator 40 04/01/23 03:30 36.4 04/01/23 03:00 128 16 95/58 (70) 99 Mechanical Ventilator 40.00 04/01/23 02:49 123 18 99 40 04/01/23 02:41 121 98/46 04/01/23 02:00 122 16 88/50 (63) 99 Mechanical Ventilator 40.00 04/01/23 01:09 112 86/48 04/01/23 01:00 120 16 86/59 (68) 99 Mechanical Ventilator 40.00 04/01/23 01:00 119 04/01/23 00:00 120 16 92/57 (69) 99 Mechanical Ventilator 40.00 03/31/23 23:42 36.3 03/31/23 23:34 100 Mechanical Ventilator 40 03/31/23 23:01 128 21 99 40 03/31/23 23:00 131 16 84/72 (76) 94 Mechanical Ventilator 40.00 03/31/23 22:00 115 16 91/51 (64) 99 Mechanical Ventilator 40.00 03/31/23 21:45 114 16 90/50 (63) 100 Mechanical Ventilator 40.00 03/31/23 21:30 113 16 86/48 (61) 99 Mechanical Ventilator 40.00 03/31/23 21:15 114 16 87/47 (60) 100 Mechanical Ventilator 40.00 03/31/23 21:04 36.0 03/31/23 21:03 114 90/41 03/31/23 21:00 113 16 89/47 (61) 100 Mechanical Ventilator 40.00 03/31/23 20:53 112 16 86/48 (61) 99 Mechanical Ventilator 40.00 03/31/23 20:45 116 16 100 Mechanical Ventilator 40.00 03/31/23 20:30 36.1 03/31/23 20:30 121 16 99 Mechanical Ventilator 40.00 03/31/23 20:15 123 16 84/51 (62) 100 Mechanical Ventilator 40.00 03/31/23 20:00 112 16 86/59 (68) 100 Mechanical Ventilator 40.00 03/31/23 20:00 100 Mechanical Ventilator 40 03/31/23 19:45 115 16 90/52 (65) 100 Mechanical Ventilator 40.00 03/31/23 19:36 106 16 99 40 03/31/23 19:35 112 16 92/53 (66) 100 Mechanical Ventilator 40.00 03/31/23 19:30 116 16 83/48 (60) 100 Mechanical Ventilator 40.00 03/31/23 19:15 113 16 97/57 (70) 100 Mechanical Ventilator 40.00 03/31/23 19:05 120 16 92/60 (71) 100 Mechanical Ventilator 40.00 03/31/23 19:00 114 16 74/56 (62) 99 Mechanical Ventilator 40.00 03/31/23 19:00 114 03/31/23 18:18 103 88/53 03/31/23 18:18 103 88/53 03/31/23 18:00 103 17 114/29 (57) 99 Mechanical Ventilator 40.00 03/31/23 18:00 103 51/39 03/31/23 17:58 103 51/39 03/31/23 17:56 94 51/39 03/31/23 17:56 94 51/39 03/31/23 17:56 94 51/39 03/31/23 17:56 94 51/39 03/31/23 17:56 94 51/39 03/31/23 17:56 94 51/39 03/31/23 17:56 94 51/39 03/31/23 17:56 94 51/39 03/31/23 17:56 94 51/39 03/31/23 17:42 95 59/47 03/31/23 17:25 93 81/54 03/31/23 17:11 91 77/53 03/31/23 17:11 91 77/53 03/31/23 17:04 80/49 03/31/23 17:01 85 77/54 03/31/23 16:38 85 77/54 03/31/23 16:27 86 79/57 03/31/23 16:17 36.0 03/31/23 16:00 100 Mechanical Ventilator 40 03/31/23 16:00 86 15 79/57 (64) 100 Mechanical Ventilator 40.00 03/31/23 15:57 86 92/63 03/31/23 15:57 86 92/63 03/31/23 15:06 36.5 97 94 40 03/31/23 15:04 89 16 96/67 (77) 100 Mechanical Ventilator 40.00 03/31/23 14:28 97 102/79 03/31/23 14:20 93 16 102/79 (87) 89 Mechanical Ventilator 40.00 03/31/23 14:17 93 102/79 03/31/23 14:13 94 10/2/23 13:51 100 Mechanical Ventilator 40 03/31/23 13:51 36.5 03/31/23 13:51 93 102/79 03/31/23 12:54 114 130/98 03/31/23 12:30 125 16 99 40 03/31/23 10:53 114 20 99 30.00 I & O 04/01/23 07:00 Intake Total 1350 ml Output Total 1100 ml Balance 250 ml Height & Weight Height: '" Weight: lbs. oz. kg; 22.37 BMI Method: General Appearance: Chronically ill, Severe Distress HEENT: PERRL/EOMI, Pharynx Normal Neck: Non Tender, Supple Respiratory: Accessory Muscle Use, Decreased Breath Sounds, Respiratory Distress Cardiovascular: Tachycardia Capillary Refill: Less Than 3 Seconds Extremity: Non Tender, Pedal Edema (2+ up to mid tibia bilateral), Swelling (Chronic edema left arm) Neurologic/Psychiatric: Alert, Oriented x3 Results Lab Laboratory Tests 03/31/23 08:30 04/01/23 03:40 Assessment/Plan Assessment/Plan as above Critical Care: Ventilator Management Time spent with patient (mins): 40 GERI TOPETE MD Apr 01, 2023 09:35
[2023-04-01] MEDS: NS IV 1000 ML 1,000 ML IV SCH (10:11)
--- NOTE | 2023-04-01 10:28 | Progress Note - Hospitalist ---
ESTEFANY LIMA 04/01/23 1028: Subjective HPI/CC On Admission Date Seen by Provider: Apr 01, 2023 Time Seen by Provider: 10:24 Acute hypoxic respiratory failure Subjective/Events-last exam This is a 63-year-old female with known history of congestive heart failure, breast cancer with metastasis, who presented to the ER yesterday with shortness of breath. Patient was found to have pneumonia, CHF, NSTEMI and hypotension. Decision was made to intubate the patient because BiPAP was not working. Patient has an ejection fraction of 10%. Currently getting transfused RBC's because of low hemoglobin. Patient did not recieve Lasix last night. Lovonox is currently being held due to possible stenting. AB.39 pH, 36 CO2, 116 O2 Ventialtor settings: 400 TV, RR 16, PEEP 6, FiO2: 30 Focused Exam Lactate Level 03/31/23 08:30: Lactic Acid Level 2.02*H 03/31/23 10:35: Lactic Acid Level 1.75 Objective Exam Vital Signs Vital Signs Date Time Temp Pulse Resp B/P (MAP) Pulse Ox O2 Delivery O2 Flow Rate FiO2 04/01/23 11:48 36.9 122 20 108/61 99 Mechanical Ventilator 30 04/01/23 11:00 30.00 Capillary Refill : Less Than 3 Seconds General Appearance: Mild Distress HEENT: PERRL/EOMI Neck: Normal Inspection Respiratory: Other (patient ventilated) Cardiovascular: Normal Peripheral Pulses Neurologic/Psychiatric: Alert Results/Procedures Lab Laboratory Tests 04/01/23 03:40 Patient resulted labs reviewed. Assessment/Plan Assessment and Plan Assess & Plan/Chief Complaint Assessment: Acute respiratory failure Patient intubated Pneumonia Hypotensive Plan: Currently intubated Begin IV Lasix that was help Continue vasopressors Continue to hold Lovonox Cardiology consulted for possible stent Continue monitoring Clinical Quality Measures Admission Status Admission Dx Assessment: Acute respiratory failure Possible Sepsis History of CHF History of HTN History of breast cancer Plan: Currently of BiPAP Patient to be intubated to decompensating fairly quickly Assessment/Plan Acute respiratory failure, unable to tolerated vapotherm, currently on BiPAP. CXR showing bilateral infiltrates, Pneumonia vs pulmonary edema. Received IV Lasix, started on antibiotics, ABGs pending. Patient being admitted to ICU Patient is decompensating fairly quickly, consider intubation to stabilize the patient KRYSTLE HAND DO 04/01/232100: Subjective Subjective/Events-last exam Patient remains critical Maintain on ventilator Appears to be a little bit alert Transfusing blood today Objective Exam General Appearance: Other (Sedated and intubated) Respiratory: Decreased Breath Sounds Cardiovascular: Regular Rate, Rhythm Assessment/Plan Assessment and Plan Assess & Plan/Chief Complaint Transfuse IV antibiotics Cardiology appreciated Severe cardiomyopathy is poor prognosis Supervisory-Addendum Brief Verification & Attestation Participated in pt care: history, MDM, physical Personally performed: exam, history, MDM, supervision of care Care discussed with: Medical Student Procedures: n/a Results interpretation: Verified all documentation Verification and Attestation of Medical Student E/M Service A medical student performed and documented this service in my presence. I reviewed and verified all information documented by the medical student and made modifications to such information, when appropriate. I personally performed the physical exam and medical decision making. Krystle Hand, Apr 01, 2023,21:00 ESTEFANY LIMA Apr 01, 2023 10:28 KRYSTLE HAND DO Apr 01, 2023 21:01
[2023-04-01 14:03] LABS: HEMOGLOBIN 8.6 g/dL (11.5-16.0)
[2023-04-01] MEDS: DexMEDEtomidine 1,000mcg/250ml 250 ML IV SCH (15:45)
[2023-04-01] MEDS: morphine INJ 4 MG/ML 1 ML (VIAL/SYRINGE) IV PRN (23:36)
[2023-04-02] MEDS: VASOPRESSIN INJECTION 20 UNIT in NS (IVPB) 100 ML 100 ML IV SCH ×3 (00:20→23:28)
[2023-04-02] MEDS: DOBUTamine DRIP PRE-MIX 250 ML IV SCH ×6 (01:57→22:12)
[2023-04-02] MEDS: DexMEDEtomidine 1,000mcg/250ml 250 ML IV SCH ×3 (02:42→19:57)
[2023-04-02] MEDS: RT-Ipratropium/Albuterol NEB 3 ML VIAL INH SCH ×6 (02:48→22:09)
[2023-04-02 02:54] VITALS: BP 126/79
[2023-04-02 03:48] LABS: ABG BASE EXCESS -1.9 MMOL/L (-2.5-2.5); ABG OXYGEN SATURATION 95 % (94-100); ABG PCO2 32 MMHG (35-45); ABG PH 7.45 (7.37-7.43); ABG PO2 69 MMHG (79-93); ABG TCO2 22.5 MMOL/L (21.0-31.0)
[2023-04-02 03:49] LABS: ALLENS TEST YES-POS; INSPIRED O2 30%; VENTILATOR YES
[2023-04-02 03:50] LABS: BASOPHILS % (AUTO) 1 % (0-10); EOSINOPHILS # (AUTO) 0.1 10^3/uL (0.0-0.3); EOSINOPHILS % (AUTO) 2 % (0-10); HEMATOCRIT 24 % (35-52); HEMOGLOBIN 8.4 g/dL (11.5-16.0); LYMPHOCYTES # (AUTO) 0.3 10^3/uL (1.0-4.0); LYMPHOCYTES % (AUTO) 5 % (12-44); MEAN CORPUSCULAR HEMOGLOBIN 30 pg (25-34); MEAN CORPUSCULAR HGB CONC 35 g/dL (32-36); MEAN CORPUSCULAR VOLUME 84 fL (80-99); MONOCYTES # (AUTO) 0.6 10^3/uL (0.0-1.0); MONOCYTES % (AUTO) 10 % (0-12); NEUTROPHILS # (AUTO) 4.4 10^3/uL (1.8-7.8); NEUTROPHILS % (AUTO) 75 % (42-75); PLATELET COUNT 300 10^3/uL (130-400); WHITE BLOOD COUNT 5.8 10^3/uL (4.3-11.0)
[2023-04-02 04:34] LABS: ALBUMIN 2.9 GM/DL (3.2-4.5); BILIRUBIN,TOTAL 0.9 MG/DL (0.1-1.0); CALCIUM 7.9 MG/DL (8.5-10.1); CREATININE SERUM 0.59 MG/DL (0.60-1.30); MAGNESIUM 1.5 MG/DL (1.6-2.4); PHOSPHORUS 2.9 MG/DL (2.3-4.7); POTASSIUM 3.6 MMOL/L (3.6-5.0); TOTAL PROTEIN 5.4 GM/DL (6.4-8.2)
[2023-04-02] MEDS: fentaNYL DRIP PRE-MIX 250 ML IV SCH ×3 (04:40→19:23)
[2023-04-02] MEDS: CEFEPIME 1,000 MG/NS 50 ML IVPB IV SCH ×8 (04:53→22:13)
[2023-04-02] MEDS: inSUlin ASPART 1 UNIT/0.01 ML (PER UNIT) SC SCH ×4 (04:55→23:23)
[2023-04-02] MEDS: POTASSIUM CL 10MEQ/50ML IVPB 50 ML IV SCH (04:57)
[2023-04-02] MEDS: POTASSIUM CHLORIDE 20 MEQ TABLET PO SCH (04:58)
[2023-04-02] MEDS: MAGNESIUM 1 GM/100 ML IVPB 100 ML IV SCH ×4 (04:58→07:56)
[2023-04-02] MEDS: FUROSEMIDE INJECTION 40 MG/4 ML VIAL IV SCH ×2 (06:09→17:09)
[2023-04-02] MEDS ORDERED: POTASSIUM BICARB 20 MEQ effervescent TABLET PO ONE (06:30)
[2023-04-02 07:28] VITALS: BP 119/66
--- NOTE | 2023-04-02 07:42 | Diagnostic Imaging Report ---
INDICATION: Respiratory failure TECHNIQUE: Single view chest 4:21 AM CORRELATION STUDY: 03/31/2023 FINDINGS: Endotracheal tube projects over the lower trachea just above the level of the randolph. Gastric tube has been retracted, tip now projects over the expected location low esophagus. Bilateral IJ central lines are present. Tips are obscured by right-sided pacemaker but appears to be over the level of the SVC. Heart size, mediastinum and vasculature overall are enlarged and more prominent from prior. Extensive bilateral perihilar opacities particularly in the central aspect, likely edema. Overlying monitor leads and defibrillator pads present. IMPRESSION: 1. Worsening severity edema from prior. 2. Gastric tube has been retracted, tip now projects in expected location low esophagus. Dictated by: Dictated on workstation # [id number]
[2023-04-02] MEDS ORDERED: TROUGH ORDER-PHARMACY XX ONE (08:00)
[2023-04-02] MEDS ORDERED: LIDOCAINE 1% INJ 20 ML VIAL ONE (08:47)
[2023-04-02] MEDS ORDERED: HEParin (CATH LAB) 2,000 ML IV ONE (08:47)
[2023-04-02] MEDS: VANCOMYCIN 1 GM/NS 250 ML IVPB IV SCH ×4 (08:55→20:15)
[2023-04-02] MEDS: PANTOPRAZOLE INJECTION 40 MG VIAL IV SCH (08:55)
[2023-04-02] MEDS: ASPIRIN enteric coated 81MG TABLET PO SCH (09:53)
[2023-04-02] MEDS: SENNOSIDES 8.6 MG TABLET PO SCH ×2 (09:53→20:06)
[2023-04-02] MEDS: DOCUSATE SODIUM 100 MG CAPSULE PO SCH ×2 (09:54→20:06)
--- NOTE | 2023-04-02 10:15 | Cardiac Procedure Note-CS/ASA ---
Pre-Procedure Note Pre-Op Procedure Note Date of Available H&P: Apr 02, 2023 Date H&P Reviewed: Mar 31, 2023 Time H&P Reviewed: 10:15 History & Physical: H&P Reviewed, Patient Examed, No changes noted Pre-Operative Diagnosis: Cardiogenic shock Moderate Sedation PreProcedure Time 10:15 ASA Score 4 Airway Lungs Heart ASA score ASA 1: a normal healthy patient ASA 2: a patient with a mild systemic disease (mid diabetes, controlled hypertension, obesity ASA 3: a patient with a severe systemic disease that limits activity (angina, COPD, prior Myocardial infarction) ASA 4: a patient with an incapacitating disease that is a constant threat to life (CHF, renal failure) ASA 5: a moribund patient not expected to survive 24 hrs. (ruptured aneurysm) ASA 6: a declared brain- patient whose organs are being harvested. For emergent operations, add the letter E after the classification Mallampati Classification Grade 4 Sedation Plan Analgesia, Amnesia, Plan communicated to team members, Discussed options with patient/fam, Discussed risks with patient/fam The patient is an appropriate candidate to undergo the planned procedure, sedation, and anesthesia. The patient immediately re-assessed prior to indication. DANGELO FERREIRA MD Apr 02, 2023 10:15
--- NOTE | 2023-04-02 10:15 | Cardiology Progress Note ---
Subjective Date Seen by Provider: Apr 02, 2023 Time Seen by Provider: 10:13 Subjective/Events-last exam Patient was seen at bedside, sedated and intubated Review of Systems General: Other (Unable to provide review of system) Focused Exam Lactate Level 03/31/23 08:30: Lactic Acid Level 2.02*H 03/31/23 10:35: Lactic Acid Level 1.75 Objective-Cardiology Exam Last Set of Vital Signs Vital Signs 04/02/23 04/02/23 04/02/23 04/02/23 04/02/23 06:30 07:28 07:52 07:58 08:48 Temp 36.6 Pulse 108 Resp 16 B/P (MAP) 115/58 Pulse Ox 95 O2 Delivery Mechanical Ventilator O2 Flow Rate 30.00 FiO2 30 I&O Intake and Output 04/02/23 00:00 Intake Total 4937 ml Output Total 5450 ml Balance -513 ml Intake Oral 0 ml IV Total 4937 ml Output Urine Total 5450 ml General: Alert, Cooperative, Other (Ventilator dependent) HEENT: Atraumatic Neck: Supple, No JVD Lungs: Clear to Auscultation, Normal Air Movement Heart: Regular Rate, Normal S1, Normal S2 Abdomen: Normal Bowel Sounds, Soft Extremities: No Clubbing, Other (Left upper extremity edema) Skin: No Rashes, No Breakdown Neuro: Other (Ventilator dependent) Psych/Mental Status: Other (Ventilator dependent) Results Lab Laboratory Tests 04/01/23 13:55 04/02/23 03:40 A/P-Cardiology Admission Diagnosis Acute respiratory failure CHF HTN Breast CA Assessment/Plan Acute respiratory failure, ventilator dependent Pulmonary edema, most probably cardiogenic due to congestive heart failure Underlying pneumonia cannot be excluded, CTA of the chest was reviewed, no pulmonary embolism Continue with pressors and IV fluid for now I am planning to proceed with cardiac catheterization possible placement of intra-aortic balloon pump Trying to wean her off pressors, dependent on dobutamine. Monitor I's and O's Discussed in length with the patient's and sister, discussed cardiac catheterization. Risk of complications and benefits. They agreed with the procedure Hypotensive shock, combined septic and cardiogenic shock Maintained on multiple pressors and IV fluid Continue with supportive care Anemia, drop in H&H Receiving blood transfusion and IV Protonix Work-up in progress. Acute on chronic congestive heart failure, chronic compensated left ventricular systolic dysfunction. Echocardiogram done on March 31, 2023 with ejection fraction 10 to 15%, PA pressure 70 to 75 mmHg, mild to moderate mitral and aortic regurgitation Right heart chambers are not enlarged Reported that she had a cardiac catheterization done in [place] in 2018 and did not have any obstructive disease. Patient will need cardiac catheterization once her H&H are stable Had radiation to her chest, received Adriamycin in 1996 Has been receiving paclitaxel recently Maintained on Coreg 12.5 mg BID and Entresto 49-51 mg BID and Farxiga as outpatient History of ICD for primary prevention. Placed on the right side Coronary artery disease, cardiac catheterization done in 2018 in [place] reported that she did not have any obstructive disease. Planning to proceed with cardiac catheterization Breast cancer, received radiation therapy and chemotherapy with Adriamycin in 1996. Currently undergoing chemotherapy for the past month with paclitaxel. Follows with Dr. Alvarez. History of left clavicle fracture and surgery and there is erythema around the left clavicle. Chronic. Hyperlipidemia, monitor lipids, History of left hip replacement, currently having right hip pain. Using a walker. Nonobstructive carotid artery stenosis per carotid duplex done Feb 2022. History of ulcerative colitis. Lymphedema in the left arm after lumpectomy History of cataract surgery Back pain, L2 compression fracture in June 2022 DANGELO FERREIRA MD Apr 02, 2023 10:15
[2023-04-02 10:27] VITALS: BP 100/54
--- NOTE | 2023-04-02 11:07 | Progress Note - Hospitalist ---
ESTEFANY LIMA 04/02/23 1107: Subjective HPI/CC On Admission Date Seen by Provider: Apr 02, 2023 Chief Complaint: Acute hypoxic respiratory failure This is a 63 year-old female with a known history of congestive heart failure, breast cancer with metastasis, who presented to the ER two days ago with shortness of breath. Patient has pneumonia, CHF, NSTEMI and hypotension. Discussion today is possibly doing balloon procedure for the heart. Possible transfer to [facility] today or tomorrow depending on the weather. Patient's hemoglobin is now stable after getting transfused RBCs. Patients sister and at bedside- nervous about prognosis. Patient did not rest last well last night and was pretty restless. Today she is resting quietly. Focused Exam Lactate Level 03/31/23 08:30: Lactic Acid Level 2.02*H 03/31/23 10:35: Lactic Acid Level 1.75 Objective Exam Vital Signs Vital Signs Date Time Temp Pulse Resp B/P (MAP) Pulse Ox O2 Delivery O2 Flow Rate FiO2 04/02/23 12:05 94 100/64 04/02/23 12:00 16 100 Mechanical Ventilator 30.00 04/02/23 11:59 30 04/02/23 11:38 36.8 Capillary Refill : Less Than 3 Seconds General Appearance: Other (patient intubated) HEENT: Normal ENT Inspection, Pharynx Normal Neck: Normal Inspection Respiratory: Rhonci, Other (patient ventilated) Results/Procedures Lab Laboratory Tests 04/01/23 13:55 04/02/23 03:40 Patient resulted labs reviewed. Assessment/Plan Assessment and Plan Assess & Plan/Chief Complaint Assessment: Acute respiratory failure Patient intubated Pneumonia vs Pulmonary Edema Hypotensive Plan: Currently intubated Continue vasopressors Continue to hold Lovonox Cardiology consulted for possible balloon placement Continue monitoring Prepare patient for transport Critical Care: Ventilator Management Clinical Quality Measures Admission Status Admission Dx Assessment: Acute respiratory failure Possible Sepsis History of CHF History of HTN History of breast cancer Plan: Currently of BiPAP Patient to be intubated to decompensating fairly quickly Assessment/Plan Acute respiratory failure, unable to tolerated vapotherm, currently on BiPAP. CXR showing bilateral infiltrates, Pneumonia vs pulmonary edema. Received IV Lasix, started on antibiotics, ABGs pending. Patient being admitted to ICU Patient is decompensating fairly quickly, consider intubation to stabilize the patient KRYSTLE HAND DO 04/02/232035: Supervisory-Addendum Brief Verification & Attestation Participated in pt care: history, MDM, physical Personally performed: exam, history, MDM, supervision of care Care discussed with: Medical Student Procedures: n/a Results interpretation: Verified all documentation Verification and Attestation of Medical Student E/M Service A medical student performed and documented this service in my presence. I reviewed and verified all information documented by the medical student and made modifications to such information, when appropriate. I personally performed the physical exam and medical decision making. Krystle Hand, Apr 02, 2023,20:36 ESTEFANY LIMA Apr 02, 2023 11:07 KRYSTLE HAND DO Apr 02, 2023 20:36
[2023-04-02] MEDS ORDERED: VERAPAMIL 5 MG/2 ML (CALAN) VIAL IV ONE (12:05)
[2023-04-02] MEDS ORDERED: MIDAZOLAM INJ 5 MG/5 ML VIAL ONE (12:05)
[2023-04-02] MEDS ORDERED: HEParin 1000 UNIT/ML (10ML VIAL) FOR BOLUS ONE (12:05)
[2023-04-02] MEDS ORDERED: fentaNYL INJECTION 100 MCG/2 ML VIAL ONE (12:05)
--- NOTE | 2023-04-02 12:26 | Tele-ICU Progress Note ---
Subjective Date Seen by a Provider: Apr 02, 2023 Time Seen by a Provider: 12:19 Subjective/Events-last exam (Tele-ICU Physician , Progress Note ) Service provided via interactive audio and video telecommunications [employer] s paulino to a patient admitted to ICU bed in [facility]. Patient is seen today due to persistent need of ICU care Available chart/ vitals / labs / Images reviewed Video assessment done using teleICU camera, rest of exam as per RN She is a 63-year-old female with past medical history of breast cancer and was treated with Adriamycin in 1996. Lately she has a history of congestive heart failure now admitted with progressively worsening shortness of breath associated with peripheral edema. In the emergency room she is found to be in acute respiratory distress requiring intubation. She had a borderline blood pressure initially requiring fluid boluses. Today she remained on mechanical ventilation however she dropped her blood hemoglobin from 9.1-6.8 with no clinical evidence of bleeding. She is receiving 2 units of packed red blood cells today. She is on a dobutamine and vasopressin per cardiology. She did have a positive fluid balance. Upon review of her x-rays and overall clinical future I do not think she will be able to be weaned off the ventilator today. 04/02/23 .patient remained on vent. not ready for weaning. cxr looks worse. had only 500 cc of negative fluid balance. going for cardiac cath today Impression 1. Acute on chronic systolic congestive heart failure looks worse today 2. Acute respiratory failure requiring mechanical ventilation not ready for weaning 3. Acute blood loss anemia stable after transfusion. no clinical evidence of b leeding. 4. History of fall breast cancer status post chemoradiation therapy in the past Recommendations 1. Next continue mechanical ventilatory support and I do not think she will be able to tolerate SBT today. 2. Cardiac cath today per cardiology 3. Continue IV Lasix with continuation of vasopressin and dobutamine as needed. 4. give zaroxalyn via ngt. 4. further recommendations per cardiolgy based on cath findings.. 6. Ulcer prophylaxis with Protonix. 7. We will hold Lovenox until we have a rule out active GI bleeding. Coordination of care with primary care physician and bedside consultants reviewed in [facility] today I am remotely monitoring this patient from Tele icu station in [place]. I am unable to do the bedside exam, and history/physical and pertinent information is taken from other notes in the computer and bedside staff. Certain portions of this document may have been dictated utilizing voice recognition technology such as [employer]. Inherent to this technology, typographical and grammatical errors may exist. As much as I am diligent to identify and correct to these mistakes, some errors may remain in the document. Critical care time devoted to this patient today is approximately is-35 minutes- Sepsis Event Evaluation Height, Weight, BMI Height: '" Weight: lbs. oz. kg; 22.37 BMI Method: Focused Exam Lactate Level 03/31/23 08:30: Lactic Acid Level 2.02*H 03/31/23 10:35: Lactic Acid Level 1.75 Exam Exam Patient acknowledged, consented, and participated in this virtual visit which was conducted using real time audio/video Vital Signs Date Time Temp Pulse Resp B/P (MAP) Pulse Ox O2 Delivery O2 Flow Rate FiO2 04/02/23 12:05 94 100/64 04/02/23 12:00 104 16 100 Mechanical Ventilator 30.00 04/02/23 11:59 100 Mechanical Ventilator 30 04/02/23 11:38 36.8 04/02/23 11:30 94 100/64 04/02/23 11:27 94 100/64 04/02/23 11:10 30 04/02/23 11:00 105 16 94 Mechanical Ventilator 30.00 04/02/23 10:29 94 100/64 04/02/23 10:00 105 16 96 Mechanical Ventilator 30.00 04/02/23 09:00 107 16 95 Mechanical Ventilator 30.00 04/02/23 08:48 108 115/58 04/02/23 08:26 102 83/48 04/02/23 08:00 96 Mechanical Ventilator 30 04/02/23 08:00 110 16 95 Mechanical Ventilator 30.00 04/02/23 07:58 36.6 04/02/23 07:52 30 04/02/23 07:28 110 16 95 30 04/02/23 07:21 108 120/66 04/02/23 07:05 113 132/74 04/02/23 07:00 108 16 94 Mechanical Ventilator 30.00 04/02/23 07:00 109 04/02/23 06:45 108 129/71 04/02/23 06:30 112 16 93 Mechanical Ventilator 30.00 04/02/23 06:20 90 107/64 04/02/23 06:15 112 16 94 Mechanical Ventilator 30.00 04/02/23 06:00 100 16 93 Mechanical Ventilator 30.00 04/02/23 05:45 110 16 92 Mechanical Ventilator 30.00 04/02/23 05:30 109 16 92 Mechanical Ventilator 30.00 04/02/23 05:15 115 16 92 Mechanical Ventilator 30.00 04/02/23 05:00 113 16 93 Mechanical Ventilator 30.00 04/02/23 04:45 116 21 93 Mechanical Ventilator 30.00 04/02/23 04:40 116 118/71 04/02/23 04:15 118 25 94 Mechanical Ventilator 30.00 04/02/23 04:15 95 Mechanical Ventilator 30 04/02/23 04:00 116 24 94 Mechanical Ventilator 30.00 04/02/23 04:00 37.4 04/02/23 03:59 30 04/02/23 03:30 112 24 94 Mechanical Ventilator 30.00 04/02/23 03:15 115 16 93 Mechanical Ventilator 30.00 04/02/23 03:00 118 16 93 Mechanical Ventilator 30.00 04/02/23 02:54 112 20 94 30 04/02/23 02:45 114 16 95 Mechanical Ventilator 30.00 04/02/23 02:42 112 118/78 04/02/23 02:30 114 16 94 Mechanical Ventilator 30.00 04/02/23 02:15 109 16 93 Mechanical Ventilator 30.00 04/02/23 02:00 111 16 94 Mechanical Ventilator 30.00 04/02/23 01:57 113 115/71 04/02/23 01:45 107 16 94 Mechanical Ventilator 30.00 04/02/23 01:30 110 29 93 Mechanical Ventilator 30.00 04/02/23 01:15 117 16 96 Mechanical Ventilator 30.00 04/02/23 01:00 111 04/02/23 01:00 111 20 94 Mechanical Ventilator 30.00 04/02/23 00:45 121 13 100 Mechanical Ventilator 30.00 04/02/23 00:30 108 16 95 Mechanical Ventilator 30.00 04/02/23 00:20 112 122/73 04/02/23 00:15 114 16 95 Mechanical Ventilator 30.00 04/02/23 00:00 38.0 04/02/23 00:00 116 16 95 Mechanical Ventilator 30.00 04/01/23 23:59 30 04/01/23 23:59 95 Mechanical Ventilator 30 04/01/23 23:45 116 25 95 Mechanical Ventilator 30.00 04/01/23 23:38 112 122/70 04/01/23 23:30 129 46 94 Mechanical Ventilator 30.00 04/01/23 23:15 113 23 94 Mechanical Ventilator 30.00 04/01/23 23:00 113 22 95 Mechanical Ventilator 30.00 04/01/23 22:45 111 14 95 Mechanical Ventilator 30.00 04/01/23 22:30 112 20 96 Mechanical Ventilator 30.00 04/01/23 22:15 117 28 96 Mechanical Ventilator 30.00 04/01/23 22:07 114 23 99 30 04/01/23 22:00 102 24 95 Mechanical Ventilator 30.00 04/01/23 21:50 104 113/72 04/01/23 21:45 106 26 96 Mechanical Ventilator 30.00 04/01/23 21:30 108 18 97 Mechanical Ventilator 30.00 04/01/23 21:15 112 21 96 Mechanical Ventilator 30.00 04/01/23 21:00 112 17 96 Mechanical Ventilator 30.00 04/01/23 20:46 114 121/67 04/01/23 20:45 111 21 96 Mechanical Ventilator 30.00 04/01/23 20:30 37.6 111 23 96 Mechanical Ventilator 30.00 04/01/23 20:15 114 23 96 Mechanical Ventilator 30.00 04/01/23 20:00 96 Mechanical Ventilator 30 04/01/23 20:00 116 17 95 Mechanical Ventilator 30.00 04/01/23 19:56 30 04/01/23 19:45 116 20 96 Mechanical Ventilator 30.00 04/01/23 19:30 112 25 96 Mechanical Ventilator 30.00 Automatic Cuff 04/01/23 19:23 113 23 99 30 04/01/23 19:20 112 111/66 04/01/23 19:15 110 19 97 Mechanical Ventilator 30.00 Automatic Cuff 04/01/23 19:00 111 04/01/23 19:00 109 19 95 Mechanical Ventilator 30.00 Automatic Cuff 04/01/23 18:00 105 19 97 Mechanical Ventilator 30.00 04/01/23 17:53 108 93/59 04/01/23 17:00 104 21 96 Mechanical Ventilator 30.00 04/01/23 16:40 149 04/01/23 16:37 105 106/64 04/01/23 16:00 36.3 Mechanical Ventilator 30.00 04/01/23 16:00 102 22 97 Mechanical Ventilator 30.00 04/01/23 16:00 97 Mechanical Ventilator 30 04/01/23 15:45 111 110/61 04/01/23 15:15 111 110/61 04/01/23 15:02 30 04/01/23 15:00 113 21 96 Mechanical Ventilator 30.00 04/01/23 14:43 134 04/01/23 14:23 108 20 96 30 04/01/23 14:23 109 108/60 04/01/23 14:00 110 19 97 Mechanical Ventilator 30.00 04/01/23 13:56 112 109/60 04/01/23 13:46 122 92/60 04/01/23 13:42 111 04/01/23 13:20 122 92/60 04/01/23 13:00 105 19 127/80 (96) 97 Mechanical Ventilator 30.00 I & O 04/02/23 07:00 Intake Total 6087 ml Output Total 5800 ml Balance 287 ml Height & Weight Height: '" Weight: lbs. oz. kg; 22.37 BMI Method: General Appearance: Other (patient intubated) HEENT: Normal ENT Inspection, Pharynx Normal Neck: Normal Inspection Respiratory: Rhonci, Other (patient ventilated) Cardiovascular: Regular Rate, Rhythm Capillary Refill: Less Than 3 Seconds Extremity: Non Tender, Pedal Edema (2+ up to mid tibia bilateral), Swelling (Chronic edema left arm) Neurologic/Psychiatric: Alert Results Lab Laboratory Tests 04/01/23 03:40 04/01/23 13:55 04/02/23 03:40 Assessment/Plan Assessment/Plan as above Critical Care: Ventilator Management Time spent with patient (mins): 35 GERI TOPETE MD Apr 02, 2023 12:26
[2023-04-02] MEDS ORDERED: HEParin DRIP 25000 UNIT/500ML 500 ML IV ONE (13:05)
--- NOTE | 2023-04-02 13:12 | Cardiac Cath Report ---
Cardiac Cath Report Physician (s)/Chisel Mortiser Operator (s) Physician DANGELO FERREIRA MD Pre-Procedure Diagnosis Pre-Procedure Diagnosis: Cardiogenic shock Post-Procedure Note Procedure Start Date: Apr 02, 2023 Name of Procedure: Left heart catheterization Left ventriculogram Aortic arch angiogram Intra-aortic balloon pump placement Findings/Procedure Note PROCEDURE NOTE: 63-year-old lady with a history of recurrent breast cancer, initially had cardiomyopathy secondary to chemotherapy that has been stable with ejection fraction 35 to 40%. Recently she was started back on chemotherapy due to recurrent cancer and she was treated with paclitaxel. Patient was admitted with acute pulmonary edema, has been hypotensive. Maintained on multiple pressors. Unable to wean off drips. I advised on doing cardiac catheterization and left ventriculogram and possible intra-aortic balloon pump placement. After explaining the procedure to the and to the family, all questions were answered. Patient was brought to the cardiac catheterization laboratory, she is ventilator dependent, right groin was prepped in a sterile fashion. Local anesthesia applied. 6 Monegasque sheath was placed in the right femoral artery, combination of right and left Little catheter were used and engaged the coronary system and angiogram was done then pigtail catheter was advanced and I was able to advance it over a Storq wire to the left ventricular cavity, pressure was measured left ventriculogram was done, pullback LV to aorta was done I placed it at the aortic arch and performed aortic arch angiogram. The sheath was removed and exchanged into 8 Monegasque sheath then intra-aortic balloon pump was advanced and placed, positioned carefully and sutured in place. Good waveform more noted. FINDINGS: Hemodynamics LV 114/24, end-diastolic pressure of 24 Aorta 119/73 mean of 99 ANATOMY: Left Main is free of obstructive disease Left Anterior Descending has mild disease nonobstructive disease Left Circumflex is free of obstructive disease Right Coronary Artery is free of obstructive disease LV Gram was done showing dilated left ventricle with severe diffuse left ventricular hypokinesia with ejection fraction 10 to 15% Aorta evaluation done with aortic arch angiogram showing normal aortic arch, no dissection or aneurysm, normal origin of the brachiocephalic artery, left carotid and left subclavian arteries. CONCLUSION: Severe nonischemic cardiomyopathy with normal coronary system Dilated left ventricle with severe diffuse left ventricular hypokinesia, ejection fraction 10 to 15% with elevated left ventricular end-diastolic pressure Normal aortic arch and great vessels of the neck Status post intra-aortic balloon pump placement for cardiogenic shock DISCUSSION AND RECOMMENDATION: Patient has a balloon pump placed, we will try to wean her off pressors and evaluate for any improvement in her blood pressure Anesthesia Type: Conscious Sedation Estimated blood loss (mL): 25 ml Contrast Amount: 42 ml Post-Procedure Diagnosis Post-operative diagnosis: Cardiogenic shock Hypotensive shock Congestive heart failure, acute on chronic left ventricular systolic dysfunction, nonischemic cardiomyopathy Acute respiratory failure DANGELO FERREIRA MD Apr 02, 2023 13:12
[2023-04-02] MEDS ORDERED: PATIENT MAY USE OWN MEDS, ALL PO SCH (13:15)
[2023-04-02 14:10] VITALS: BP 97/37
[2023-04-02] MEDS ORDERED: HEParin DRIP 25000 UNIT/500ML (ACS THERAPY) IV SCH (15:00)
[2023-04-02] MEDS ORDERED: HEParin 1000 UNIT/ML BOLUS (ACS THERAPY) IV PRN (15:00)
[2023-04-02] MEDS: NS IV 1000 ML 1,000 ML IV SCH ×3 (15:30→22:20)
--- NOTE | 2023-04-02 16:43 | Discharge Summary ---
Diagnosis/Chief Complaint Date of Admission Mar 31, 2023 at 13:51 Date of Discharge Discharge Diagnosis Assessment: Acute respiratory failure requiring intubation Sepsis from PNA History of CHF EF 10% History of HTN History of breast cancer Reason Hospital Visit Chief complaint: Acute hypoxic respiratory failure HPI: This is a 63-year-old female with known history of congestive heart failure on Entresto and breast cancer with metastasis who presented to the ER with shortness of breath found to have pneumonia, congestive heart failure, NSTEMI and hypotension. Patient was struggling on BiPAP so the decision was made to intubate. Patient was placed in the ICU and cardiology was consulted. Echocardiogram shows ejection fraction of 10%. Prognosis remains very poor Discharge Summary Discharge Physical Examination Allergies: Coded Allergies: No Known Drug Allergies (Unverified , 01/27/22) Vitals & I&Os Vital Signs Date Time Temp Pulse Resp B/P (MAP) Pulse Ox O2 Delivery O2 Flow Rate FiO2 04/03/23 10:00 94 13 97 Mechanical Ventilator 30.00 04/03/23 08:00 30 04/03/23 07:35 36.0 General Appearance: Alert, Cooperative Respiratory: Clear to Auscultation Cardiovascular: Regular Rate Psych/Mental Status: Mental Status NL Hospital Course Was the Problem List Reviewed?: Yes This is a 63-year-old female with known history of congestive heart failure on Entresto and breast cancer with metastasis who presented to the ER with shortness of breath. Patient was found to have pneumonia, congestive heart failure, NSTEMI and hypotension. Patient was intubated in the ER due to hypoxia on BiPAP and acute respiratory failure. Patient transferred to the ICU and cardiology was consulted. Echocardiogram shows ejection fraction of 10%. Hospital course was complicated due to possible mixed shock- cardiogenic and septic. On 04/02- chest xray showed increasing edema. Patient has negative fluid balance and was taken to cardiac lab engineer. Patient had an intra-aortic balloon pump placed for cardiogenic shock. Throughout her stay the patient was unresponsive to vasopressors- vasopressin and dobutamine were continued without much change. Currently being transferred to this morning. [facility] (last 24 hrs) Laboratory Tests 03/31/23 08:24: Influenza Type A (RT-PCR) Not Detected, Influenza Type B (RT-PCR) Not Detected, SARS-CoV-2 RNA (RT-PCR) Not Detected 03/31/23 08:30: White Blood Count 5.7, Red Blood Count 3.18L, Hemoglobin 9.1L, Hematocrit 29L, Mean Corpuscular Volume 92, Mean Corpuscular Hemoglobin 29, Mean Corpuscular Hemoglobin Concent 31L, Red Cell Distribution Width 22.1H, Platelet Count 331, Mean Platelet Volume 10.6, Immature Granulocyte % (Auto) 15, Neutrophils (%) (Auto) 69, Lymphocytes (%) (Auto) 9L, Monocytes (%) (Auto) 6, Eosinophils (%) (Auto) 0, Basophils (%) (Auto) 1, Neutrophils # (Auto) 4.0, Lymphocytes # (Auto) 0.5L, Monocytes # (Auto) 0.3, Eosinophils # (Auto) 0.0, Basophils # (Auto) 0.1, Immature Granulocyte # (Auto) 0.9H, Neutrophils % (Manual) 62, Lymphocytes % (Manual) 10, Monocytes % (Manual) 5, Eosinophils % (Manual) 1, Metamyelocytes % 5, Myelocytes % 3, Band Neutrophils 14, Nucleated Red Blood Cells 1, Polychromasia SLIGHT, Hypochromasia SLIGHT, Anisocytosis MODERATE, Microcytosis SLIGHT, Macrocytosis SLIGHT, [place] Cells SLIGHT, Elliptocytes SLIGHT, Prothrombin Time 15.2H, INR Comment 1.2, Activated Partial Thromboplast Time 35, Sodium Level 137, Potassium Level 3.7, Chloride Level 102, Carbon Dioxide Level 19L, Anion Gap 16H, Blood Urea Nitrogen 9, Creatinine 0.64, Estimat Glomerular Filtration Rate 100, BUN/Creatinine Ratio 14, Glucose Level 162H, Lactic Acid Level 2.02*H, Calcium Level 8.5, Corrected Calcium 9.1, Magnesium Level 1.2L, Total Bilirubin 0.6, Aspartate Amino Transf (AST/SGOT) 13, Alanine Aminotransferase (ALT/SGPT) 7, Alkaline Phosphatase 174H, Troponin I 0.075H, C- Reactive Protein High Sensitivity 16.59H, B-Type Natriuretic Peptide 3418.9H, Total Protein 6.2L, Albumin 3.3, Triglycerides Level 146 03/31/23 10:35: Lactic Acid Level 1.75 03/31/23 11:12: Blood Gas Puncture Site RIGHT RADIAL, Blood Gas Patient Temperature 35.9, Arterial Blood pH 7.42, Arterial Blood Partial Pressure CO2 29L, Arterial Blood Partial Pressure O2 84, Arterial Blood HCO3 19L, Arterial Blood Total CO2 19.4L, Arterial Blood Oxygen Saturation 97, Arterial Blood Base Excess -5.4L, Ismael Test YES-POS, Blood Gas Ventilator Setting NO, Blood Gas Inspired Oxygen 30% BIPAP 03/31/23 11:40: Urine Color YELLOW, Urine Clarity CLEAR, Urine pH 5.5, Urine Specific [place] >=1.030, Urine Protein 3+H, Urine Glucose (UA) 1+H, Urine Ketones 2+H, Urine Nitrite NEGATIVE, Urine Bilirubin 2+H, Urine Urobilinogen 0.2, Urine Leukocyte Esterase NEGATIVE, Urine RBC (Auto) NEGATIVE, Urine RBC NONE, Urine WBC 0-2, Urine Crystals NONE, Urine Bacteria TRACE, Urine Casts NONE, Urine Mucus SMALLH, Urine Culture Indicated NO 03/31/23 14:46: Blood Gas Puncture Site RIGHT RAD, Blood Gas Patient Temperature 36.5, Arterial Blood pH 7.40, Arterial Blood Partial Pressure CO2 32L, Arterial Blood Partial Pressure O2 102H, Arterial Blood HCO3 20L, Arterial Blood Total CO2 20.6L, Maria Victoria rial Blood Oxygen Saturation 98, Arterial Blood Base Excess -4.5L, Ismael Test YES-POS, Blood Gas Ventilator Setting YES, Blood Gas Inspired Oxygen 40 03/31/23 17:32: Glucometer 133H 03/31/23 23:31: Glucometer 143H 04/01/23 03:40: White Blood Count 5.8, Red Blood Count 2.35L, Hemoglobin 6.8#*L, Hematocrit 21L, Mean Corpuscular Volume 89, Mean Corpuscular Hemoglobin 29, Mean Corpuscular Hemoglobin Concent 33, Red Cell Distribution Width 22.1H, Platelet Count 328, Mean Platelet Volume 10.0, Immature Granulocyte % (Auto) 12, Neutrophils (%) (Auto) 65, Lymphocytes (%) (Auto) 8L, Monocytes (%) (Auto) 15H, Eosinophils (%) (Auto) 1, Basophils (%) (Auto) 1, Neutrophils # (Auto) 3.7, Lymphocytes # (Auto) 0.4L, Monocytes # (Auto) 0.8, Eosinophils # (Auto) 0.0, Basophils # (Auto) 0.0, Immature Granulocyte # (Auto) 0.7H, Blood Gas Puncture Site UNK, Blood Gas Patient Temperature 37.0, Arterial Blood pH 7.39, Arterial Blood Partial Pressure CO2 36, Arterial Blood Partial Pressure O2 116H, Arterial Blood HCO3 21L, Arterial Blood Total CO2 22.5, Arterial Blood Oxygen Saturation 99, Arterial Blood Base Excess -2.7L, Ismael Test YES-POS, Blood Gas Ventilator Setting YES, Blood Gas Inspired Oxygen 40%, Sodium Level 137, Potassium Level 2.9L, Chloride Level 105, Carbon Dioxide Level 19L, Anion Gap 13, Blood Urea Nitrogen 10, Creatinine 0.65, Estimat Glomerular Filtration Rate 100, BUN/Creatinine Ratio 15, Glucose Level 183H, Calcium Level 7.3L, Corrected Calcium 8.3L, Phosphorus Level 2.8, Magnesium Level 1.3L, Total Bilirubin 0.4, Aspartate Amino Transf (AST/SGOT) 10, Alanine Aminotransferase (ALT/SGPT) 7, Alkaline Phosphatase 139H, Total Protein 5.1L, Albumin 2.7L, Triglycerides Level 153H, Cholesterol Level 141, LDL Cholesterol Direct 94, VLDL Cholesterol 31, HDL Cholesterol 30L 04/01/23 06:13: Glucometer 161H 04/01/23 11:33: Glucometer 174H 04/01/23 12:55: Lab Scanned Report Transfusion Reaction Form 04/01/23 13:55: Hemoglobin 8.6#L, Hematocrit 26L, Potassium Level 3.4L 04/01/23 17:34: Glucometer 116H 04/01/23 23:46: Glucometer 123H 04/02/23 03:40: Hemoglobin 8.4L, Hematocrit 24L, Potassium Level 3.6, White Blood Count 5.8, Red Blood Count 2.84L, Mean Corpuscular Volume 84, Mean Corpuscular Hemoglobin 30, Mean Corpuscular Hemoglobin Concent 35, Red Cell Distribution Width 20.1H, Platelet Count 300, Mean Platelet Volume 10.0, Immature Granulocyte % (Auto) 8, Neutrophils (%) (Auto) 75, Lymphocytes (%) (Auto) 5L, Monocytes (%) (Auto) 10, Eosinophils (%) (Auto) 2, Basophils (%) (Auto) 1, Neutrophils # (Auto) 4.4, Lymphocytes # (Auto) 0.3L, Monocytes # (Auto) 0.6, Eosinophils # (Auto) 0.1, Basophils # (Auto) 0.0, Immature Granulocyte # (Auto) 0.5H, Sodium Level 130L, Chloride Level 100, Carbon Dioxide Level 19L, Anion Gap 11, Blood Urea Nitrogen 8, Creatinine 0.59L, Estimat Glomerular Filtration Rate 102, BUN/Creatinine Ratio 14, Glucose Level 146H, Calcium Level 7.9L, Corrected Calcium 8.8, Phosphorus Level 2.9, Magnesium Level 1.5L, Total Bilirubin 0.9, Aspartate Amino Transf (AST/SGOT) 10, Alanine Aminotransferase (ALT/SGPT) 6, Alkaline Phosphatase 146H, Total Protein 5.4L, Albumin 2.9L 04/02/23 03:41: Blood Gas Puncture Site UNK, Blood Gas Patient Temperature UNK, Arterial Blood pH 7.45H, Arterial Blood Partial Pressure CO2 32L, Arterial Blood Partial Pr essure O2 69L, Arterial Blood HCO3 22L, Arterial Blood Total CO2 22.5, Arterial Blood Oxygen Saturation 95, Arterial Blood Base Excess -1.9, Ismael Test YES-POS, Blood Gas Ventilator Setting YES, Blood Gas Inspired Oxygen 30% 04/02/23 08:02: Vancomycin Level Trough 15.9 04/02/23 11:26: Glucometer 142H 04/02/23 18:00: Activated Partial Thromboplast Time 73H 04/02/23 18:23: Glucometer 137H 04/02/23 23:22: Glucometer 141H 04/03/23 00:10: Activated Partial Thromboplast Time 59H 04/03/23 03:10: Blood Gas Puncture Site R ALEXANDER, Blood Gas Patient Temperature 36.1, Arterial Blood pH 7.44H, Arterial Blood Partial Pressure CO2 37, Arterial Blood Partial Pressure O2 79, Arterial Blood HCO3 25, Arterial Blood Total CO2 26.6, Arterial Blood Oxygen Saturation 98, Arterial Blood Base Excess 1.5, Ismael Test ART LINE, Blood Gas Ventilator Setting YES, Blood Gas Inspired Oxygen 30% 04/03/23 03:15: White Blood Count 4.9, Red Blood Count 2.64L, Hemoglobin 7.8L, Hematocrit 23L, Mean Corpuscular Volume 86, Mean Corpuscular Hemoglobin 30, Mean Corpuscular Hemoglobin Concent 35, Red Cell Distribution Width 19.9H, Platelet Count 271, Mean Platelet Volume 10.1, Immature Granulocyte % (Auto) 5, Neutrophils (%) (A uto) 80H, Lymphocytes (%) (Auto) 6L, Monocytes (%) (Auto) 7, Eosinophils (%) (Auto) 2, Basophils (%) (Auto) 0, Neutrophils # (Auto) 4.0, Lymphocytes # (Auto) 0.3L, Monocytes # (Auto) 0.3, Eosinophils # (Auto) 0.1, Basophils # (Auto) 0.0, Immature Granulocyte # (Auto) 0.2H, Sodium Level 125*L, Potassium Level 2.9L, Chloride Level 91L, Carbon Dioxide Level 21, Anion Gap 13, Blood Urea Nitrogen 7, Creatinine 0.58L, Estimat Glomerular Filtration Rate 103, BUN/Creatinine Ratio 12, Glucose Level 128H, Calcium Level 7.8L, Corrected Calcium 8.8, Phosphorus Level 3.6, Magnesium Level 1.5L, Total Bilirubin 0.9, Aspartate Amino Transf (AST/SGOT) 12, Alanine Aminotransferase (ALT/SGPT) 7, Alkaline Phosphatase 152H, Total Protein 5.0L, Albumin 2.7L 04/03/23 05:45: Activated Partial Thromboplast Time 70H 04/03/23 17:30: Lab Scanned Report Transfusion Reaction Form Microbiology 04/01/23 MRSA Screen - Final, Complete MRSA not isolated 03/31/23 Urine Culture - Final, Complete NO GROWTH 03/31/23 Blood Culture - Preliminary, Resulted Pending Labs Microbiology Date/Time Source Procedure Growth Status 04/01/23 03:40 Nasal MRSA Screen - Final MRSA not isolated Complete 03/31/23 13:50 Sputum Endotracheal Gram Stain - Final Complete 03/31/23 13:50 Sputum Culture - Final Usual upper respiratory isaías Complete 03/31/23 13:50 Nasal MRSA Screen - Final MRSA not isolated Complete 03/31/23 11:40 Urine U Cath,Nos Urine Culture - Final NO GROWTH Complete 03/31/23 10:35 [place], Nos Blood Culture - Preliminary Resulted 03/31/23 08:30 [place], Nos Blood Culture - Preliminary Resulted Laboratory Tests 03/31/23 08:24: Influenza Type A (RT-PCR) Not Detected, Influenza Type B (RT-PCR) Not Detected, SARS-CoV-2 RNA (RT-PCR) Not Detected 03/31/23 08:30: White Blood Count 5.7, Red Blood Count 3.18, Hemoglobin 9.1, Hematocrit 29, Mean Corpuscular Volume 92, Mean Corpuscular Hemoglobin 29, Mean Corpuscular Hemoglobin Concent 31, Red Cell Distribution Width 22.1, Platelet Count 331, Mean Platelet Volume 10.6, Immature Granulocyte % (Auto) 15, Neutrophils (%) (Auto) 69, Lymphocytes (%) (Auto) 9, Monocytes (%) (Auto) 6, Eosinophils (%) (Auto) 0, Basophils (%) (Auto) 1, Neutrophils # (Auto) 4.0, Lymphocytes # (Auto) 0.5, Monocytes # (Auto) 0.3, Eosinophils # (Auto) 0.0, Basophils # (Auto) 0.1, Immature Granulocyte # (Auto) 0.9, Neutrophils % (Manual) 62, Lymphocytes % (Manual) 10, Monocytes % (Manual) 5, Eosinophils % (Manual) 1, Metamyelocytes % 5, Myelocytes % 3, Band Neutrophils 14, Nucleated Red Blood Cells 1, Polychromasia SLIGHT, Hypochromasia SLIGHT, Anisocytosis MODERATE, Microcytosis SLIGHT, Macrocytosis SLIGHT, Roberth Cells SLIGHT, Elliptocytes SLIGHT, Prothrombin Time 15.2, INR Comment 1.2, Activated Partial Thromboplast Time 35, Sodium Level 137, Potassium Level 3.7, Chloride Level 102, Carbon Dioxide Level 19, Anion Gap 16, Blood Urea Nitrogen 9, Creatinine 0.64, Estimat Glomerular Filtration Rate 100, BUN/Creatinine Ratio 14, Glucose Level 162, Lactic Acid Level 2.02, Calcium Level 8.5, Corrected Calcium 9.1, Magnesium Level 1.2, Total Bilirubin 0.6, Aspartate Amino Transf (AST/SGOT) 13, Alanine Aminotransferase (ALT/SGPT) 7, Alkaline Phosphatase 174, Troponin I 0.075, C-Reactive Protein High Sensitivity 16.59, B-Type Natriuretic Peptide 3418.9, Total Protein 6.2, Albumin 3.3, Triglycerides Level 146 03/31/23 10:35: Lactic Acid Level 1.75 03/31/23 11:12: Blood Gas Puncture Site RIGHT RADIAL, Blood Gas Patient Temperature 35.9, Arterial Blood pH 7.42, Arterial Blood Partial Pressure CO2 29, Arterial Blood Partial Pressure O2 84, Arterial Blood HCO3 19, Arterial Blood Total CO2 19.4, Arterial Blood Oxygen Saturation 97, Arterial Blood Base Excess -5.4, Ismael Test YES-POS, Blood Gas Ventilator Setting NO, Blood Gas Inspired Oxygen 30% BIPAP 03/31/23 11:40: Urine Color YELLOW, Urine Clarity CLEAR, Urine pH 5.5, Urine Specific [place] >=1.030, Urine Protein 3+, Urine Glucose (UA) 1+, Urine Ketones 2+, Urine Nitrite NEGATIVE, Urine Bilirubin 2+, Urine Urobilinogen 0.2, Urine Leukocyte Esterase NEGATIVE, Urine RBC (Auto) NEGATIVE, Urine RBC NONE, Urine WBC 0-2, Urine Crystals NONE, Urine Bacteria TRACE, Urine Casts NONE, Urine Mucus SMALL, Urine Culture Indicated NO 03/31/23 14:46: Blood Gas Puncture Site RIGHT RAD, Blood Gas Patient Temperature 36.5, Arterial Blood pH 7.40, Arterial Blood Partial Pressure CO2 32, Arterial Blood Partial Pressure O2 102, Arterial Blood HCO3 20, Arterial Blood Total CO2 20.6, Arterial Blood Oxygen Saturation 98, Arterial Blood Base Excess -4.5, Ismael Test YES-POS, Blood Gas Ventilator Setting YES, Blood Gas Inspired Oxygen 40 03/31/23 17:32: Glucometer 133 03/31/23 23:31: Glucometer 143 04/01/23 03:40: White Blood Count 5.8, Red Blood Count 2.35, Hemoglobin 6.8, Hematocrit 21, Mean Corpuscular Volume 89, Mean Corpuscular Hemoglobin 29, Mean Corpuscular Hemoglobin Concent 33, Red Cell Distribution Width 22.1, Platelet Count 328, Mean Platelet Volume 10.0, Immature Granulocyte % (Auto) 12, Neutrophils (%) (Auto) 65, Lymphocytes (%) (Auto) 8, Monocytes (%) (Auto) 15, Eosinophils (%) (Auto) 1, Basophils (%) (Auto) 1, Neutrophils # (Auto) 3.7, Lymphocytes # (Auto) 0.4, Monocytes # (Auto) 0.8, Eosinophils # (Auto) 0.0, Basophils # (Auto) 0.0, Immature Granulocyte # (Auto) 0.7, Blood Gas Puncture Site UNK, Blood Gas Supriya ent Temperature 37.0, Arterial Blood pH 7.39, Arterial Blood Partial Pressure CO2 36, Arterial Blood Partial Pressure O2 116, Arterial Blood HCO3 21, Arterial Blood Total CO2 22.5, Arterial Blood Oxygen Saturation 99, Arterial Blood Base Excess -2.7, Ismael Test YES-POS, Blood Gas Ventilator Setting YES, Blood Gas Inspired Oxygen 40%, Sodium Level 137, Potassium Level 2.9, Chloride Level 105, Carbon Dioxide Level 19, Anion Gap 13, Blood Urea Nitrogen 10, Creatinine 0.65, Estimat Glomerular Filtration Rate 100, BUN/Creatinine Ratio 15, Glucose Level 183, Calcium Level 7.3, Corrected Calcium 8.3, Phosphorus Level 2.8, Magnesium Level 1.3, Total Bilirubin 0.4, Aspartate Amino Transf (AST/SGOT) 10, Alanine Aminotransferase (ALT/SGPT) 7, Alkaline Phosphatase 139, Total Protein 5.1, Albumin 2.7, Triglycerides Level 153, Cholesterol Level 141, LDL Cholesterol Direct 94, VLDL Cholesterol 31, HDL Cholesterol 30 04/01/23 06:13: Glucometer 161 04/01/23 11:33: Glucometer 174 04/01/23 12:55: Lab Scanned Report Transfusion Reaction Form 04/01/23 13:55: Hemoglobin 8.6, Hematocrit 26, Potassium Level 3.4 04/01/23 17:34: Glucometer 116 04/01/23 23:46: Glucometer 123 04/02/23 03:40: Hemoglobin 8.4, Hematocrit 24, Potassium Level 3.6, White Blood Count 5.8, Red Blood Count 2.84, Mean Corpuscular Volume 84, Mean Corpuscular Hemoglobin 30, Mean Corpuscular Hemoglobin Concent 35, Red Cell Distribution Width 20.1, Platelet Count 300, Mean Platelet Volume 10.0, Immature Granulocyte % (Auto) 8, Neutrophils (%) (Auto) 75, Lymphocytes (%) (Auto) 5, Monocytes (%) (Auto) 10, Eosinophils (%) (Auto) 2, Basophils (%) (Auto) 1, Neutrophils # (Auto) 4.4, Ly mphocytes # (Auto) 0.3, Monocytes # (Auto) 0.6, Eosinophils # (Auto) 0.1, Basophils # (Auto) 0.0, Immature Granulocyte # (Auto) 0.5, Sodium Level 130, Chloride Level 100, Carbon Dioxide Level 19, Anion Gap 11, Blood Urea Nitrogen 8, Creatinine 0.59, Estimat Glomerular Filtration Rate 102, BUN/Creatinine Ratio 14, Glucose Level 146, Calcium Level 7.9, Corrected Calcium 8.8, Phosphorus Level 2.9, Magnesium Level 1.5, Total Bilirubin 0.9, Aspartate Amino Transf (AST/SGOT) 10, Alanine Aminotransferase (ALT/SGPT) 6, Alkaline Phosphatase 146, Total Protein 5.4, Albumin 2.9 04/02/23 03:41: Blood Gas Puncture Site UNK, Blood Gas Patient Temperature UNK, Arterial Blood pH 7.45, Arterial Blood Partial Pressure CO2 32, Arterial Blood Partial Pressure O2 69, Arterial Blood HCO3 22, Arterial Blood Total CO2 22.5, Arterial Blood Oxygen Saturation 95, Arterial Blood Base Excess -1.9, Ismael Test YES-POS, Blood Gas Ventilator Setting YES, Blood Gas Inspired Oxygen 30% 04/02/23 08:02: Vancomycin Level Trough 15.9 04/02/23 11:26: Glucometer 142 04/02/23 18:00: Activated Partial Thromboplast Time 73 04/02/23 18:23: Glucometer 137 04/02/23 23:22: Glucometer 141 04/03/23 00:10: Activated Partial Thromboplast Time 59 04/03/23 03:10: Blood Gas Puncture Site R ALEXANDER, Blood Gas Patient Temperature 36.1, Arterial Blood pH 7.44, Arterial Blood Partial Pressure CO2 37, Arterial Blood Partial Pressure O2 79, Arterial Blood HCO3 25, Arterial Blood Total CO2 26.6, Arterial Blood Oxygen Saturation 98, Arterial Blood Base Excess 1.5, Ismael Test ART LINE, Blood Gas Ventilator Setting YES, Blood Gas Inspired Oxygen 30% 04/03/23 03:15: White Blood Count 4.9, Red Blood Count 2.64, Hemoglobin 7.8, Hematocrit 23, Mean Corpuscular Volume 86, Mean Corpuscular Hemoglobin 30, Mean Corpuscular Hemoglobin Concent 35, Red Cell Distribution Width 19.9, Platelet Count 271, Mean Platelet Volume 10.1, Immature Granulocyte % (Auto) 5, Neutrophils (%) (Auto) 80, Lymphocytes (%) (Auto) 6, Monocytes (%) (Auto) 7, Eosinophils (%) (Auto) 2, Basophils (%) (Auto) 0, Neutrophils # (Auto) 4.0, Lymphocytes # (Auto) 0.3, Monocytes # (Auto) 0.3, Eosinophils # (Auto) 0.1, Basophils # (Auto) 0.0, Immature Granulocyte # (Auto) 0.2, Sodium Level 125, Potassium Level 2.9, Chlor bob Level 91, Carbon Dioxide Level 21, Anion Gap 13, Blood Urea Nitrogen 7, Creatinine 0.58, Estimat Glomerular Filtration Rate 103, BUN/Creatinine Ratio 12, Glucose Level 128, Calcium Level 7.8, Corrected Calcium 8.8, Phosphorus Level 3.6, Magnesium Level 1.5, Total Bilirubin 0.9, Aspartate Amino Transf (AST/SGOT) 12, Alanine Aminotransferase (ALT/SGPT) 7, Alkaline Phosphatase 152, Total Protein 5.0, Albumin 2.7 04/03/23 05:45: Activated Partial Thromboplast Time 70 04/03/23 17:30: Lab Scanned Report Transfusion Reaction Form Discharge Home Medications: Active Scripts Active Ativan (Lorazepam) 0.5 Mg Tablet 0.5 Mg PO HS PRN Dexamethasone 1 Mg Tablet 1 Mg PO BID Acidophilus-Pectin Capsule (Lactobacillus Acidophilus/Pect) 75 Million Cell-100 Mg Capsule 2 Each PO TIDWM Pantoprazole Sodium 40 Mg Tablet.dr 40 Mg PO BID Sucralfate 1 Gram Tablet 1 Gm PO ACHS Mirtazapine 15 Mg Tab.rapdis 15 Mg PO HS Hydromorphone HCl 4 Mg Tablet 4 Mg PO Q4H PRN Cancer patient Fentanyl Patch 75MCG (Fentanyl) 75 Mcg/Hour Patch.td72 150 Mcg TOP Q72H Reported Furosemide 40 Mg Tablet 40 Mg PO BID PRN Zetia (Ezetimibe) 10 Mg Tablet 10 Mg PO DAILY Senna Laxative (Sennosides) 8.6 Mg Tablet 1 Ea PO BID PRN Neurontin (Gabapentin) 300 Mg Capsule 300 Mg PO HS Vitamin D3 (Cholecalciferol (Vitamin D3)) 25 Mcg (1000 Unit) Tablet 25 Mcg PO DAILY Naloxone HCl 4 Mg/Actuation Purvis 1 Purvis NSEACH UD Nystatin 100,000 Unit/Ml Oral.susp 5 Ml PO QID PRN Ondansetron Odt (Ondansetron) 8 Mg Tab.rapdis 8 Mg PO Q6H PRN Cetirizine HCl 10 Mg Tablet 10 Mg PO DAILY Entresto 49 mg-51 mg Tablet (Sacubitril/Valsartan) 49 Mg-51 Mg Tablet 1 Tab PO BID Crestor (Rosuvastatin Calcium) 5 Mg Tablet 5 Mg PO DAILY Carvedilol 12.5 Mg Tablet 12.5 Mg PO BID Zinc (Zinc Sulfate) 50 Mg Zinc (220 Mg) Tablet 50 Mg PO DAILY Duloxetine HCl 60 Mg Capsule.dr 60 Mg PO DAILY Farxiga (Dapagliflozin Propanediol) 10 Mg Tablet 10 Mg PO HS Instructions to patient/family Please see electronic discharge instructions given to patient. EDUARDO HAND DO Apr 02, 2023 16:42
[2023-04-02 18:40] VITALS: BP 132/74
[2023-04-02 22:10] VITALS: BP 156/72
[2023-04-03] MEDS: fentaNYL DRIP PRE-MIX 250 ML IV SCH ×2 (01:52→08:41)
[2023-04-03] MEDS: DOBUTamine DRIP PRE-MIX 250 ML IV SCH ×3 (01:55→09:27)
[2023-04-03 02:42] VITALS: BP 138/71
[2023-04-03] MEDS: RT-Ipratropium/Albuterol NEB 3 ML VIAL INH SCH ×2 (02:42→07:08)
[2023-04-03] MEDS: NOREPINEPHRINE 8 MG/250 ML 250 ML IV SCH (03:04)
[2023-04-03 03:20] LABS: ABG BASE EXCESS 1.5 MMOL/L (-2.5-2.5); ABG OXYGEN SATURATION 98 % (94-100); ABG PCO2 37 MMHG (35-45); ABG PH 7.44 (7.37-7.43); ABG PO2 79 MMHG (79-93); ABG TCO2 26.6 MMOL/L (21.0-31.0); ALLENS TEST ART LINE; INSPIRED O2 30%; PATIENT TEMP 36.1; VENTILATOR YES
[2023-04-03 03:28] LABS: BASOPHILS % (AUTO) 0 % (0-10); EOSINOPHILS # (AUTO) 0.1 10^3/uL (0.0-0.3); EOSINOPHILS % (AUTO) 2 % (0-10); HEMATOCRIT 23 % (35-52); HEMOGLOBIN 7.8 g/dL (11.5-16.0); LYMPHOCYTES # (AUTO) 0.3 10^3/uL (1.0-4.0); LYMPHOCYTES % (AUTO) 6 % (12-44); MEAN CORPUSCULAR HEMOGLOBIN 30 pg (25-34); MEAN CORPUSCULAR HGB CONC 35 g/dL (32-36); MEAN CORPUSCULAR VOLUME 86 fL (80-99); MEAN PLATELET VOLUME 10.1 fL (9.0-12.2); MONOCYTES # (AUTO) 0.3 10^3/uL (0.0-1.0); MONOCYTES % (AUTO) 7 % (0-12); NEUTROPHILS % (AUTO) 80 % (42-75); PLATELET COUNT 271 10^3/uL (130-400); WHITE BLOOD COUNT 4.9 10^3/uL (4.3-11.0)
[2023-04-03 03:38] LABS: ALBUMIN 2.7 GM/DL (3.2-4.5); POTASSIUM 2.9 MMOL/L (3.6-5.0)
[2023-04-03 03:39] LABS: CALCIUM 7.8 MG/DL (8.5-10.1)
[2023-04-03 03:42] LABS: BILIRUBIN,TOTAL 0.9 MG/DL (0.1-1.0)
[2023-04-03 03:44] LABS: CREATININE SERUM 0.58 MG/DL (0.60-1.30); PHOSPHORUS 3.6 MG/DL (2.3-4.7)
[2023-04-03 03:47] LABS: MAGNESIUM 1.5 MG/DL (1.6-2.4)
[2023-04-03] MEDS: MAGNESIUM 1 GM/100 ML IVPB 100 ML IV SCH ×5 (03:51→07:04)
[2023-04-03] MEDS: POTASSIUM CL 10MEQ/50ML IVPB 50 ML IV SCH ×9 (03:51→09:11)
[2023-04-03] MEDS: POTASSIUM CHLORIDE 20 MEQ TABLET PO SCH (03:51)
[2023-04-03] MEDS: inSUlin ASPART 1 UNIT/0.01 ML (PER UNIT) SC SCH (03:52)
[2023-04-03] MEDS ORDERED: POTASSIUM CL 10MEQ/50ML IVPB 400 ML IV ONE (03:54)
[2023-04-03] MEDS ORDERED: MAGNESIUM 1 GM/100 ML IVPB 400 ML IV ONE (03:54)
[2023-04-03] MEDS: CEFEPIME 1,000 MG/NS 50 ML IVPB IV SCH ×2 (04:33)
[2023-04-03] MEDS: DexMEDEtomidine 1,000mcg/250ml 250 ML IV SCH (04:38)
[2023-04-03] MEDS: FUROSEMIDE INJECTION 40 MG/4 ML VIAL IV SCH (06:50)
[2023-04-03 07:08] VITALS: BP 130/70
--- NOTE | 2023-04-03 08:30 | Cardiology Progress Note ---
Subjective Date Seen by Provider: Apr 03, 2023 Time Seen by Provider: 08:28 Subjective/Events-last exam Patient was seen at bedside, sedated and intubated Focused Exam Lactate Level 03/31/23 08:30: Lactic Acid Level 2.02*H 03/31/23 10:35: Lactic Acid Level 1.75 Objective-Cardiology Exam Last Set of Vital Signs Vital Signs 04/03/23 04/03/23 04/03/23 04/03/23 04/03/23 06:15 07:08 07:35 08:00 08:15 Temp 36.0 Pulse 87 Resp 18 B/P (MAP) 138/71 Pulse Ox 98 O2 Delivery Mechanical Ventilator O2 Flow Rate 30.00 FiO2 30 I&O Intake and Output 04/03/23 00:00 Intake Total 5201 ml Output Total 5735 ml Balance -534 ml Intake Oral 0 ml IV Total 5151 ml Other 50 ml Output Urine Total 5735 ml General: Alert, Cooperative, Other (Ventilator dependent) HEENT: Atraumatic Neck: Supple, No JVD Lungs: Clear to Auscultation, Normal Air Movement Heart: Regular Rate, Normal S1, Normal S2 Abdomen: Normal Bowel Sounds, Soft Extremities: No Clubbing, Other (Left upper extremity edema) Skin: No Rashes, No Breakdown Neuro: Other (Ventilator dependent) Psych/Mental Status: Other (Ventilator dependent) Results Lab Laboratory Tests 04/03/23 03:15 A/P-Cardiology Admission Diagnosis Acute respiratory failure CHF HTN Breast CA Assessment/Plan Acute respiratory failure, ventilator dependent Pulmonary edema, most probably cardiogenic due to congestive heart failure Underlying pneumonia cannot be excluded, CTA of the chest was reviewed, no pulmonary embolism Continue with pressors and IV fluid for now Cardiac catheterization was carried out on April 02, 2023 showing nonobstructive disease with severe cardiomyopathy with ejection fraction 10%. Status post intra-aortic balloon pump counterpulsation placement Hypotensive shock, combined septic and cardiogenic shock Maintained on intra-aortic balloon pump, becoming dependent on the balloon pump, unable to wean off pressors. Discussed the management plan with heart failure team and we will arrange for transfer to , may benefit from LVAD Anemia, drop in H&H Receiving transfusion. Continue to monitor Electrolyte imbalance with hyponatremia, hypokalemia, being corrected Continue to monitor Acute on chronic congestive heart failure, chronic compensated left ventricular systolic dysfunction. Echocardiogram done on March 31, 2023 with ejection fraction 10 to 15%, PA pressure 70 to 75 mmHg, mild to moderate mitral and aortic regurgitation Right heart chambers are not enlarged Reported that she had a cardiac catheterization done in [place] in 2018 and did not have any obstructive disease. Patient will need cardiac catheterization once her H&H are stable Had radiation to her chest, received Adriamycin in 1996 Has been receiving paclitaxel recently Maintained on Coreg 12.5 mg BID and Entresto 49-51 mg BID and Farxiga as outpatient History of ICD for primary prevention. Placed on the right side Coronary artery disease, cardiac catheterization done in 2018 in [place] reported that she did not have any obstructive disease. Planning to proceed with cardiac catheterization Breast cancer, received radiation therapy and chemotherapy with Adriamycin in 1996. Currently undergoing chemotherapy for the past month with paclitaxel. Follows with Dr. Alvarez. History of left clavicle fracture and surgery and there is erythema around the left clavicle. Chronic. Hyperlipidemia, monitor lipids, History of left hip replacement, currently having right hip pain. Using a walker. Nonobstructive carotid artery stenosis per carotid duplex done Feb 2022. History of ulcerative colitis. Lymphedema in the left arm after lumpectomy History of cataract surgery Back pain, L2 compression fracture in June 2022 DANGELO FERREIRA MD Apr 03, 2023 08:30
[2023-04-03] MEDS: PANTOPRAZOLE INJECTION 40 MG VIAL IV SCH (08:32)
[2023-04-03] MEDS: VANCOMYCIN 1 GM/NS 250 ML IVPB IV SCH ×2 (08:32)
[2023-04-03] MEDS: ASPIRIN enteric coated 81MG TABLET PO SCH (08:32)
--- NOTE | 2023-04-03 08:36 | Tele-ICU Progress Note ---
Subjective Date Seen by a Provider: Apr 03, 2023 Time Seen by a Provider: 08:36 Subjective/Events-last exam (Tele-ICU Physician , Progress Note ) Service provided via interactive audio and video telecommunications [facility] to a patient admitted to ICU bed in [facility]. Patient is seen today due to persistent need of ICU care Available chart/ vitals / labs / Images reviewed Video assessment done using teleICU camera, rest of exam as per RN Discussed with RN Hospital course: 63-year-old female with PMHx of breast cancer (tx 97), CHF admitted with progressively worsening SOB likely 2/2 CHF excerbation. In ED noted to have significant hypoxia, intubated for acute respiratory failure. H ospital course c/b shock likely mixed septic/cardiogenic. 04/02: patient remained on vent. not ready for weaning. cxr looks worse. had only 500 cc of negative fluid balance. going for cardiac cath today 04/03: Remains on pressors and unable to wean. MAP currently at 71 on balloon pump, Transferring to A/P Severe nonischemic cardiomyopathy with normal coronary system Dilated left ventricle with severe diffuse left ventricular hypokinesia, ejection fraction 10 to 15% with elevated left ventricular end-diastolic pressure Normal aortic arch and great vessels of the neck Status post intra-aortic balloon pump placement for cardiogenic shock -Maps currently 70s, transferring to this AM -Continue IV Lasix with continuation of vasopressin and dobutamine as needed. Acute hypoxic RF -s/p intubation 03/31 -ABG 7.44/37/79 -Would evaluate CXR, noted to have worsening edema yesterday Anemia of acute blood loss: Stable Hx of breast cancer s/p chemoradiation: No active issues Chronic pain -Currently on fentanyl gtt Lines : Left port , (Central Line Necessity Reviewed) Agrawal: + 03/31 OG: Nutrition: NPO Analgesia: Anxiety/ delirium VTE Prophylaxis: jordyn Stress Ulcer Prophylaxis: Protonix I am remotely monitoring this patient from Tele icu station in [place]. I am unable to do the bedside exam, and history/physical and pertinent information is taken from other notes in the computer and bedside staff. Critical care time devoted to this patient today is approximately is-20 minutes Review of Systems General: No Chills, No Night Sweats, No Fatigue, No Malaise, No Appetite, No Other Sepsis Event Evaluation Height, Weight, BMI Height: '" Weight: lbs. oz. kg; 22.37 BMI Method: Focused Exam Lactate Level 03/31/23 10:35: Lactic Acid Level 1.75 Exam Exam Patient acknowledged, consented, and participated in this virtual visit which w as conducted using real time audio/video Vital Signs Date Time Temp Pulse Resp B/P (MAP) Pulse Ox O2 Delivery O2 Flow Rate FiO2 04/03/23 08:15 87 04/03/23 08:00 89 04/03/23 08:00 93 18 98 Mechanical Ventilator 30.00 04/03/23 07:45 99 04/03/23 07:35 36.0 04/03/23 07:30 97 04/03/23 07:15 96 04/03/23 07:08 91 19 98 30 04/03/23 07:00 96 04/03/23 07:00 91 16 98 Mechanical Ventilator 30.00 04/03/23 07:00 93 04/03/23 06:45 85 04/03/23 06:30 91 04/03/23 06:15 96 04/03/23 06:15 93 138/71 04/03/23 06:00 92 14 98 Mechanical Ventilator 30.00 04/03/23 06:00 93 04/03/23 05:52 92 138/71 04/03/23 05:45 92 04/03/23 05:30 90 04/03/23 05:15 91 04/03/23 05:00 92 04/03/23 05:00 93 17 97 Mechanical Ventilator 30.00 04/03/23 04:45 90 04/03/23 04:38 91 138/71 04/03/23 04:30 91 04/03/23 04:15 98 04/03/23 04:00 107 04/03/23 04:00 92 17 96 Mechanical Ventilator 30.00 04/03/23 04:00 96 Mechanical Ventilator 30 04/03/23 03:59 30 04/03/23 03:45 94 04/03/23 03:30 92 04/03/23 03:15 107 04/03/23 03:04 113 138/71 04/03/23 03:00 93 16 95 Mechanical Ventilator 30.00 04/03/23 03:00 113 04/03/23 02:45 102 04/03/23 02:42 105 27 99 30 04/03/23 02:30 89 04/03/23 02:15 88 04/03/23 02:00 89 13 96 Mechanical Ventilator 30.00 04/03/23 02:00 83 04/03/23 01:55 92 132/74 04/03/23 01:52 92 132/74 04/03/23 01:45 92 04/03/23 01:30 85 04/03/23 01:15 85 04/03/23 01:13 36.1 04/03/23 01:00 95 15 96 Mechanical Ventilator 30.00 04/03/23 01:00 94 04/03/23 01:00 98 04/03/23 00:45 91 04/03/23 00:30 90 04/03/23 00:15 92 04/03/23 00:00 90 04/03/23 00:00 92 15 96 Mechanical Ventilator 30.00 04/02/23 23:59 30 04/02/23 23:59 96 Mechanical Ventilator 30 04/02/23 23:57 90 132/74 04/02/23 23:45 108 04/02/23 23:30 94 04/02/23 23:28 90 132/74 04/02/23 23:23 90 132/74 04/02/23 23:15 90 04/02/23 23:00 92 04/02/23 23:00 97 13 97 Mechanical Ventilator 30.00 04/02/23 22:45 83 04/02/23 22:40 36.0 04/02/23 22:30 89 04/02/23 22:15 93 04/02/23 22:12 89 132/74 04/02/23 22:10 89 16 96 30 04/02/23 22:00 89 04/02/23 22:00 87 17 96 Mechanical Ventilator 30.00 04/02/23 21:45 90 04/02/23 21:30 89 04/02/23 21:15 95 04/02/23 21:00 94 16 95 Mechanical Ventilator 30.00 04/02/23 21:00 103 04/02/23 20:45 93 04/02/23 20:30 96 04/02/23 20:15 100 04/02/23 20:00 93 17 96 Mechanical Ventilator 30.00 04/02/23 20:00 96 Mechanical Ventilator 30 04/02/23 19:59 104 10/4/23 19:57 96 132/74 04/02/23 19:50 30 04/02/23 19:45 96 04/02/23 19:35 35.9 04/02/23 19:30 94 04/02/23 19:23 95 132/74 04/02/23 19:15 95 04/02/23 19:00 91 04/02/23 19:00 92 04/02/23 19:00 95 16 95 Mechanical Ventilator 30.00 04/02/23 18:45 94 04/02/23 18:40 95 17 96 30 04/02/23 18:37 101 123/60 04/02/23 18:36 104 111/57 04/02/23 18:30 113 04/02/23 18:26 107 88/41 04/02/23 18:15 107 04/02/23 18:15 105 17 94 Mechanical Ventilator 30.00 04/02/23 18:00 104 04/02/23 18:00 105 24 94 Mechanical Ventilator 30.00 04/02/23 17:45 107 04/02/23 17:45 96 17 93 Mechanical Ventilator 30.00 04/02/23 17:33 97 150/74 04/02/23 17:30 104 04/02/23 17:30 97 19 95 Mechanical Ventilator 30.00 04/02/23 17:15 97 16 95 Mechanical Ventilator 30.00 04/02/23 17:15 109 04/02/23 17:00 96 14 94 Mechanical Ventilator 30.00 04/02/23 17:00 102 04/02/23 16:45 105 04/02/23 16:45 99 16 94 Mechanical Ventilator 30.00 04/02/23 16:30 100 04/02/23 16:30 98 17 94 Mechanical Ventilator 30.00 04/02/23 16:22 103 93/52 04/02/23 16:22 103 93/52 04/02/23 16:15 96 18 93 Mechanical Ventilator 30.00 04/02/23 16:15 103 04/02/23 16:04 30 04/02/23 16:00 103 17 95 Mechanical Ventilator 30.00 04/02/23 16:00 97 Mechanical Ventilator 30 04/02/23 16:00 105 04/02/23 15:47 112 93/52 04/02/23 15:45 110 17 96 Mechanical Ventilator 30.00 04/02/23 15:45 102 04/02/23 15:38 36.0 04/02/23 15:30 108 04/02/23 15:30 110 22 95 Mechanical Ventilator 30.00 04/02/23 15:15 105 15 95 Mechanical Ventilator 30.00 04/02/23 15:15 107 04/02/23 15:00 106 7 94 Mechanical Ventilator 30.00 04/02/23 15:00 107 04/02/23 14:45 101 11 93 Mechanical Ventilator 30.00 04/02/23 14:45 103 04/02/23 14:35 93 135/79 04/02/23 14:32 98 04/02/23 14:30 93 12 94 Mechanical Ventilator 30.00 04/02/23 14:30 104 04/02/23 14:29 93 135/79 04/02/23 14:22 99 04/02/23 14:10 99 20 93 30 04/02/23 14:07 98 04/02/23 14:00 97 11 94 Mechanical Ventilator 30.00 04/02/23 12:05 94 100/64 04/02/23 12:02 117 04/02/23 12:00 104 16 100 Mechanical Ventilator 30.00 04/02/23 11:59 100 Mechanical Ventilator 30 04/02/23 11:38 36.8 04/02/23 11:30 94 100/64 04/02/23 11:27 94 100/64 04/02/23 11:10 30 04/02/23 11:00 105 16 94 Mechanical Ventilator 30.00 04/02/23 10:29 94 100/64 04/02/23 10:27 104 20 95 30 04/02/23 10:00 105 16 96 Mechanical Ventilator 30.00 04/02/23 09:00 107 16 95 Mechanical Ventilator 30.00 04/02/23 08:48 108 115/58 I & O 04/03/23 07:00 Intake Total 5651 ml Output Total 5625 ml Balance 26 ml Height & Weight Height: '" Weight: lbs. oz. kg; 22.37 BMI Method: General Appearance: Other (patient intubated) HEENT: Normal ENT Inspection, Pharynx Normal Neck: Normal Inspection Respiratory: Rhonci, Other (patient ventilated) Cardiovascular: Regular Rate, Rhythm Capillary Refill: Less Than 3 Seconds Extremity: Non Tender, Pedal Edema (2+ up to mid tibia bilateral), Swelling (Chronic edema left arm) Neurologic/Psychiatric: Alert Results Lab Laboratory Tests 04/01/23 13:55 04/02/23 03:40 04/03/23 03:15 Assessment/Plan Assessment/Plan . DELONTE RINCON MD Apr 03, 2023 08:36
[2023-04-03] MEDS: VASOPRESSIN INJECTION 20 UNIT in NS (IVPB) 100 ML 100 ML IV SCH (09:28)
--- NOTE | 2023-04-03 10:15 | Progress Note ---
ESTEFANY LIMA 04/03/23 1015: Progress Note This is a 63-year-old female with known history of congestive heart failure on Entresto and breast cancer with metastasis who presented to the ER with shortness of breath. Patient was found to have pneumonia, congestive heart failure, NSTEMI and hypotension. Patient was intubated in the ER due to hypoxia on BiPAP and acute respiratory failure. Patient transferred to the ICU and cardiology was consulted. Echocardiogram shows ejection fraction of 10%. Hospital course was complicated due to possible mixed shock- cardiogenic and septic. On 04/02- chest xray showed increasing edema. Patient has negative fluid balance and was taken to cardiac dental laboratory technician. Patient had an intra-aortic balloon pump placed for cardiogenic shock. Throughout her stay the patient was unresponsive to vasopressors- vasopressin and dobutamine were continued without much change. Currently being transferred to this morning. KRYSTLE HAND DO 04/03/232046: Supervisory-Addendum Brief Verification & Attestation Participated in pt care: history, MDM, physical Personally performed: exam, history, MDM, supervision of care Care discussed with: Medical Student Procedures: n/a Results interpretation: Verified all documentation Verification and Attestation of Medical Student E/M Service A medical student performed and documented this service in my presence. I reviewed and verified all information documented by the medical student and made modifications to such information, when appropriate. I personally performed the physical exam and medical decision making. Krystle Hand, Apr 03, 2023,20:47 ESTEFANY LIMA Apr 03, 2023 10:15 KRYSTLE HAND DO Apr 03, 2023 20:47
--- NOTE | 2023-04-03 15:00 | Discharge Summary ---
MASHA CHUA MD,RESIDENT 04/03/23 1435: Discharge Summary Hospital Course Was the Problem List Reviewed?: Yes Problems/Dx: (1) Acute heart failure Status: Acute Qualifiers: Qualified Codes: I50.9 - Heart failure, unspecified (2) Acute respiratory failure Status: Acute Qualifiers: Qualified Codes: J96.00 - Acute respiratory failure, unspecified whether with hypoxia or hypercapnia (3) Breast cancer Qualifiers: Qualified Codes: C50.912 - Malignant neoplasm of unspecified site of left female breast Hospital Course Date of Admission: Mar 31, 2023 at 13:51 Admission Diagnosis : Family Physician/Provider: Cassy Joshi MD Date of Discharge: 04/03/23 Discharge Diagnosis: Severe heart failure Hospital Course: Pt admitted for progressive SOB. Determined to have severe acute on chronic HF. SOB worsened, Pt placed on mechanical ventilator. Dr. Galarza placed balloon pump in efforts to stabilize Pt her transfer to [facility] for further management of HF. Pt transferred to [facility] by air for further management from Heart Failure team. Labs and Pending Lab Test: Laboratory Tests 04/02/23 18:00: Activated Partial Thromboplast Time 73H 04/02/23 18:23: Glucometer 137H 04/02/23 23:22: Glucometer 141H 04/03/23 00:10: Activated Partial Thromboplast Time 59H 04/03/23 03:10: Blood Gas Puncture Site R ALEXANDER, Blood Gas Patient Temperature 36.1, Arterial Blood pH 7.44H, Arterial Blood Partial Pressure CO2 37, Arterial Blood Partial Pressure O2 79, Arterial Blood HCO3 25, Arterial Blood Total CO2 26.6, Arterial Blood Oxygen Saturation 98, Arterial Blood Base Excess 1.5, Ismael Test ART LINE, Blood Gas Ventilator Setting YES, Blood Gas Inspired Oxygen 30% 04/03/23 03:15: White Blood Count 4.9, Red Blood Count 2.64L, Hemoglobin 7.8L, Hematocrit 23L, Mean Corpuscular Volume 86, Mean Corpuscular Hemoglobin 30, Mean Corpuscular Hemoglobin Concent 35, Red Cell Distribution Width 19.9H, Platelet Count 271, Mean Platelet Volume 10.1, Immature Granulocyte % (Auto) 5, Neutrophils (%) (Auto) 80H, Lymphocytes (%) (Auto) 6L, Monocytes (%) (Auto) 7, Eosinophils (%) (Auto) 2, Basophils (%) (Auto) 0, Neutrophils # (Auto) 4.0, Lymphocytes # (Auto) 0.3L, Monocytes # (Auto) 0.3, Eosinophils # (Auto) 0.1, Basophils # (Auto) 0.0, Immature Granulocyte # (Auto) 0.2H, Sodium Level 125*L, Potassium Level 2.9L, Chloride Level 91L, Carbon Dioxide Level 21, Anion Gap 13, Blood Urea Nitrogen 7, Creatinine 0.58L, Estimat Glomerular Filtration Rate 103, BUN/Creatinine Ratio 12, Glucose Level 128H, Calcium Level 7.8L, Corrected Calcium 8.8, Phosphorus Level 3.6, Magnesium Level 1.5L, Total Bilirubin 0.9, Aspartate Amino Transf (AST/SGOT) 12, Alanine Aminotransferase (ALT/SGPT) 7, Alkaline Phosphatase 152H, Total Protein 5.0L, Albumin 2.7L 04/03/23 05:45: Activated Partial Thromboplast Time 70H Microbiology 04/01/23 MRSA Screen - Final, Complete MRSA not isolated 03/31/23 Urine Culture - Final, Complete NO GROWTH 03/31/23 Blood Culture - Preliminary, Resulted Home Meds Active Ativan (Lorazepam) 0.5 Mg Tablet 0.5 Mg PO HS PRN Dexamethasone 1 Mg Tablet 1 Mg PO BID Acidophilus-Pectin Capsule (Lactobacillus Acidophilus/Pect) 75 Million Cell-100 Mg Capsule 2 Each PO TIDWM Pantoprazole Sodium 40 Mg Tablet.dr 40 Mg PO BID Sucralfate 1 Gram Tablet 1 Gm PO ACHS Mirtazapine 15 Mg Tab.rapdis 15 Mg PO HS Hydromorphone HCl 4 Mg Tablet 4 Mg PO Q4H PRN Cancer patient Fentanyl Patch 75MCG (Fentanyl) 75 Mcg/Hour Patch.td72 150 Mcg TOP Q72H Reported Furosemide 40 Mg Tablet 40 Mg PO BID PRN Zetia (Ezetimibe) 10 Mg Tablet 10 Mg PO DAILY Senna Laxative (Sennosides) 8.6 Mg Tablet 1 Ea PO BID PRN Neurontin (Gabapentin) 300 Mg Capsule 300 Mg PO HS Vitamin D3 (Cholecalciferol (Vitamin D3)) 25 Mcg (1000 Unit) Tablet 25 Mcg PO DAILY Naloxone HCl 4 Mg/Actuation Airville 1 Airville NSEACH UD Nystatin 100,000 Unit/Ml Oral.susp 5 Ml PO QID PRN Ondansetron Odt (Ondansetron) 8 Mg Tab.rapdis 8 Mg PO Q6H PRN Cetirizine HCl 10 Mg Tablet 10 Mg PO DAILY Entresto 49 mg-51 mg Tablet (Sacubitril/Valsartan) 49 Mg-51 Mg Tablet 1 Tab PO BID Crestor (Rosuvastatin Calcium) 5 Mg Tablet 5 Mg PO DAILY Carvedilol 12.5 Mg Tablet 12.5 Mg PO BID Zinc (Zinc Sulfate) 50 Mg Zinc (220 Mg) Tablet 50 Mg PO DAILY Duloxetine HCl 60 Mg Capsule.dr 60 Mg PO DAILY Farxiga (Dapagliflozin Propanediol) 10 Mg Tablet 10 Mg PO HS Assessment/Pt Instructions Pt with severe acute on chronic heart failure with acute hypoxic respiratory failure on mechanical ventilation. Pt transferred via air to [facility] for further management of HF. Discharge Instructions Activity as Tolerated: Yes Discharge Physical Examination Vital Signs Vital Signs Date Time Temp Pulse Resp B/P (MAP) Pulse Ox O2 Delivery O2 Flow Rate FiO2 04/03/23 10:00 94 13 97 Mechanical Ventilator 30.00 04/03/23 08:00 30 04/03/23 07:35 36.0 General Appearance: No Apparent Distress Respiratory: Crackles, Other (Ventilated) Cardiovascular: Regular Rate, Rhythm Gastrointestinal: Soft Skin: Warm/Dry Neurologic/Psychiatric: Other (Sedated) Allergies: Coded Allergies: No Known Drug Allergies (Unverified , 01/27/22) Discharge Summary Date of Admission Mar 31, 2023 at 13:51 Date of Discharge Apr 03, 2023 at 10:08 EDUARDO HAND DO 04/03/23 2101: Discharge Summary Hospital Course Was the Problem List Reviewed?: Yes Hospital Course This is a 63-year-old female with known history of congestive heart failure on Entresto and breast cancer with metastasis who presented to the ER with shortness of breath. Patient was found to have pneumonia, congestive heart failure, NSTEMI and hypotension. Patient was intubated in the ER due to hypoxia on BiPAP and acute respiratory failure. Patient transferred to the ICU and cardiology was consulted. Echocardiogram shows ejection fraction of 10%. Hospital course was complicated due to possible mixed shock- cardiogenic and septic. On 04/02- chest xray showed increasing edema. Patient has negative fluid balance and was taken to cardiac labor service representative. Patient had an intra-aortic balloon pump placed for cardiogenic shock. Throughout her stay the patient was unrespons lashay to vasopressors- vasopressin and dobutamine were continued without much change. Currently being transferred to this morning. ESTEFANY LIMA Assessment/Pt Instructions Discharge Planning: <30 minutes discharge planning Discharge Physical Examination General Appearance: No Apparent Distress, Other (intubated) Allergies: Coded Allergies: No Known Drug Allergies (Unverified , 01/27/22) MASHA CHUA MD,RESIDENT Apr 03, 2023 14:35 EDUARDO HAND DO Apr 03, 2023 21:01
== END 2023-04-03 10:08 | disposition short-term general hospital (02) | DRG 853 ==
LOC: EDUNIT# 08:17 → ER 08:18 → ICU 13:51
PROVIDERS: ADMIT Internal Medicine; ATTEND Internal Medicine
PROC: 5A1945Z Respiratory Ventilation, 24-96 Consecutive Hours (ICD-10-PCS; 2023-03-31)
PROC: 0BH17EZ Insertion of Endotracheal Airway into Trachea, Via Natural or Artificial Opening (ICD-10-PCS; 2023-03-31)
PROC: 5A09357 Assistance with Respiratory Ventilation, Less than 24 Consecutive Hours, Continuous Positive Airway Pressure (ICD-10-PCS; 2023-03-31)
PROC: 5A0935A Assistance with Respiratory Ventilation, Less than 24 Consecutive Hours, High Flow/Velocity Cannula (ICD-10-PCS; 2023-03-31)
PROC: 02HV33Z Insertion of Infusion Device into Superior Vena Cava, Percutaneous Approach (ICD-10-PCS; 2023-03-31)
PROC: 5A02210 Assistance with Cardiac Output using Balloon Pump, Continuous (ICD-10-PCS; principal; 2023-04-02)
PROC: 4A023N7 Measurement of Cardiac Sampling and Pressure, Left Heart, Percutaneous Approach (ICD-10-PCS; 2023-04-02)
PROC: B2111ZZ Fluoroscopy of Multiple Coronary Arteries using Low Osmolar Contrast (ICD-10-PCS; 2023-04-02)
PROC: B2151ZZ Fluoroscopy of Left Heart using Low Osmolar Contrast (ICD-10-PCS; 2023-04-02)
PROC: B3101ZZ Fluoroscopy of Thoracic Aorta using Low Osmolar Contrast (ICD-10-PCS; 2023-04-02)
DX: A41.9 Sepsis, unspecified organism (principal); I21.4 Non-ST elevation (NSTEMI) myocardial infarction; I50.23 Acute on chronic systolic (congestive) heart failure; J96.01 Acute respiratory failure with hypoxia; J18.9 Pneumonia, unspecified organism; R65.21 Severe sepsis with septic shock; R57.0 Cardiogenic shock; R57.8 Other shock; I42.7 Cardiomyopathy due to drug and external agent; D62 Acute posthemorrhagic anemia; C79.9 Secondary malignant neoplasm of unspecified site; Z11.52 Encounter for screening for COVID-19; I11.0 Hypertensive heart disease with heart failure; I89.0 Lymphedema, not elsewhere classified; Z85.3 Personal history of malignant neoplasm of breast; I25.10 Atherosclerotic heart disease of native coronary artery without angina pectoris; I08.0 Rheumatic disorders of both mitral and aortic valves; E78.00 Pure hypercholesterolemia, unspecified; Z95.810 Presence of automatic (implantable) cardiac defibrillator; Z96.642 Presence of left artificial hip joint; G89.29 Other chronic pain; M54.9 Dorsalgia, unspecified; Z87.891 Personal history of nicotine dependence; Z92.3 Personal history of irradiation; T45.1X5D Adverse effect of antineoplastic and immunosuppressive drugs, subsequent encounter
CPT/HCPCS: 31500; 33967; 36221; 36410; 36415; 36600; 51702; 71045; 71275; 76937; 80053; 80061; 80202; 81000; 82805; 82947; 83605; 83735; 83880; 84100; 84132; 84478; 84484; 85007; 85014; 85018; 85025; 85027; 85347; 85610; 85730; 86141; 86850; 86900; 86901; 86920; 87040; 87070; 87081; 87088; 87205; 87636; 93005; 93306; 93458; 94002; 94003; 94640; 94799; 99291